=== PATIENT | male | born 1960 | race Caucasian/White ===

== ENCOUNTER → 2017-06-01 | Outpatient (CLI) | payer OTHER ==
[~2017-06-01] MED LIST: ADVIN25/60 INH; ALBUAER2 INH; TIOTCAP INH
== END | disposition home or self-care (01) ==
LOC: C.RC 12:40
PROVIDERS: ATTEND Internal Medicine
DX: J44.9 Chronic obstructive pulmonary disease, unspecified (principal)

== ENCOUNTER → 2017-06-15 | Outpatient (CLI) | payer OTHER ==
[~2017-06-15] MED LIST changes: +ATROPINE SULFATE 0.1 MG/ML 5ML SYR ONE; +DOBUTamine HCL 12.5 MG/ML 20 ML VIAL ONE; +METOPROLOL TARTRATE 1 MG/ML VIAL ONE
--- NOTE | 2017-06-15 21:55 | DOBUTAMINE ECHO ---
*NOTICE TO RECEIVING LIBERTARIAN AGENCY This information is strictly Confidential and protected under [place] law. [place] law prohibits you from making any further disclosure of this information unless further disclosure is expressly permitted by the written consent of the person to whom it pertains or is authorized by law. A general authorization for the release of medical or other information is not sufficient for this purpose. Hospital accepts no responsibility if the information is made available to any other person, INCLUDING THE PATIENT. Interpretation Summary * Name: NEREYDA LOVE Study Date: 06/15/2017 10:36 AM BP: 118/73 mmHg * Patient Location: [facility] HR: 81 * : 1960 (M/d/yyyy) Gender: Male Height: 65 in * Age: 57 yrs Ethnicity: [place] Weight: 117 lb * Ordering Physician: Ethan Hollingsworth * Referring Physician: Ethan Hollingsworth * Performed By: Yuridia Jackson RDCS * * Reason For Study: CHEST PAIN * BSA: 1.6 m2 * -- Conclusions -- * Dobutamine Stress Echo: * 1. Negative Dobutamine stress echo for ischemia at 87 % MPHR. * 2. Negative Dobutamine ECG for ischemia at 87 % MPHR. * 3. Appropriate blood pressure response. * 4. No arrhythmia. * 5. No chest pain reported. * Echo: * 1. Normal left ventricular size and systolic function. EF 65-70%. No regional wall motion abnormalities. No left ventricular hypertrophy. Type 2 diastolic dysfunction. * 2. Sclerotic aortic valve without significant stenosis. * 3. Mildly elevated right ventricular systolic pressure; 41mmHg. Procedure Details * DOBUTAMINE ECHO, CPT#[id number] Left Ventricle * The left ventricle is normal in size. * There is normal left ventricular wall thickness. * Ejection Fraction = 65-70%. * Left ventricular systolic function is normal. * Resting wall motion: Normal. Stress wall motion: Appropriate increase in Left ventricular systolic function and decrease in cavity size. No stress induced segmental wall motion abnormalities. * The left ventricular ejection fraction increases normally with stress. The left ventricular end-systolic cavity size reduces post-stress (normal response). The left ventricular wall motion with stress is normal. Right Ventricle * The right ventricle is normal in size and function. * The right ventricular systolic function is normal as assessed by tricuspid annular plane systolic excursion (TAPSE) (normal >1.5 cm). Atria * The left atrial size is normal. * Right atrial size is normal. * There is no evidence of atrial septal defect, but resolution does not allow assessment for a patent foramen ovale. Mitral Valve * The mitral valve is grossly normal. * There is no mitral valve stenosis. * There is trace mitral regurgitation. Tricuspid Valve * The tricuspid valve is not well visualized, but is grossly normal. * There is no tricuspid stenosis. * There is trace tricuspid regurgitation. Aortic Valve * The aortic valve is trileaflet. * Sclerotic aortic valve without significant stenosis. * Trace aortic regurgitation. Pulmonic Valve * The pulmonary valve is inadequately visualized, but the Doppler data is adequate for interpretation. * There is no significant pulmonary regurgitation. Great Vessels * The aortic root is normal size. * Normal IVC size and inspiratory collapse. Pericardium * Trace pericardial effusion. Stress Parameters * Sinus rhythm at 83 bpm. * No significant ST changes. No arrhythmia. Rare ectopy. * The stress portion of this study was personally supervised by the undersigned interpreting physician. * Rest heart rate was '81' BPM. * Rest blood pressure was '118/73' * Maximum heart rate achieved was 142 bpm. * Maximum heart rate was 87 % of maximum age-predicted heart rate. * Maximum blood pressure was '150/45' * Maximum Dobutamine infusion rate was '40' mcg/kg/min. * A total of .5 mg of intravenous Atropine was used to supplement Dobutamine for heart rate response. * Dobutamine infusion was terminated due to achieving target heart rate * A total of 7.5 mg of IV Metoprolol was administered to reverse Dobutamine-induced tachycardia. MMode 2D Measurements and Calculations IVSd 1.1 cm IVSs 1.7 cm LVIDd 4.5 cm LVIDs 2.9 cm LVPWd 1.1 cm LVPWs 1.5 cm IVS/LVPW 0.98 FS 36.9 % EDV(Teich) 93.6 ml ESV(Teich) 31.0 ml EF(Teich) 66.9 % EDV(cubed) 92.5 ml ESV(cubed) 23.3 ml EF(cubed) 74.8 % % IVS thick 50.4 % % LVPW thick 33.2 % LV mass(C)d 178.6 grams LV mass(C)dI 113.4 grams/m\S\2 LV mass(C)s 160.9 grams LV mass(C)sI 102.2 grams/m\S\2 SV(Teich) 62.6 ml SI(Teich) 39.7 ml/m\S\2 SV(cubed) 69.3 ml SI(cubed) 44.0 ml/m\S\2 Ao root diam 3.7 cm Ao root area 10.7 cm\S\2 LVAd ap4 28.7 cm\S\2 LVLd ap4 8.2 cm EDV(MOD-sp4) 87.8 ml EDV(sp4-el) 84.9 ml LVAs ap4 15.0 cm\S\2 LVLs ap4 6.6 cm ESV(MOD-sp4) 31.7 ml ESV(sp4-el) 29.0 ml EF(MOD-sp4) 63.9 % EF(sp4-el) 65.8 % LVAd ap2 28.5 cm\S\2 LVLd ap2 7.9 cm EDV(MOD-sp2) 86.4 ml EDV(sp2-el) 87.8 ml LVAs ap2 14.7 cm\S\2 LVLs ap2 6.4 cm ESV(MOD-sp2) 30.3 ml ESV(sp2-el) 28.5 ml EF(MOD-sp2) 65.0 % EF(sp2-el) 67.6 % LVLd %diff -4.93 % EDV(MOD-bp) 88.3 ml LVLs %diff -2.77 % ESV(MOD-bp) 31.3 ml EF(MOD-bp) 64.5 % SV(MOD-sp4) 56.1 ml SI(MOD-sp4) 35.6 ml/m\S\2 SV(MOD-sp2) 56.2 ml SI(MOD-sp2) 35.7 ml/m\S\2 SV(MOD-bp) 57.0 ml SI(MOD-bp) 36.2 ml/m\S\2 SV(sp4-el) 55.9 ml SI(sp4-el) 35.5 ml/m\S\2 SV(sp2-el) 59.3 ml SI(sp2-el) 37.6 ml/m\S\2 Doppler Measurements and Calculations MV E max devyn 88.9 cm/sec MV A max devyn 71.6 cm/sec MV E/A 1.2 MV dec time 0.16 sec Ao V2 max 189.4 cm/sec Ao max PG 14.3 mmHg Ao max PG (full) 9.3 mmHg Ao V2 mean 122.1 cm/sec Ao mean PG 7.0 mmHg Ao mean PG (full) 4.7 mmHg Ao V2 VTI 33.5 cm LV V1 max PG 5.1 mmHg LV V1 mean PG 2.2 mmHg LV V1 max 112.8 cm/sec LV V1 mean 67.8 cm/sec LV V1 VTI 19.1 cm SV(Ao) 358.9 ml SI(Ao) 227.9 ml/m\S\2 TR max devyn 307.3 cm/sec RVSP(TR) 40.8 mmHg RAP systole 3.0 mmHg
== END | disposition home or self-care (01) ==
LOC: C.CPL 10:28
PROVIDERS: ATTEND Internal Medicine
DX: R07.9 Chest pain, unspecified (principal); J44.9 Chronic obstructive pulmonary disease, unspecified; R06.09 Other forms of dyspnea

== ENCOUNTER 2018-07-24 08:28 | Inpatient (IN) ==
--- OUTSIDE RECORDS SUMMARY | 2018-07-24 08:31 | External Medical Summary | Continuity of Care Document ---
:1960 Author Name Delvin De La Cruz, Provider Address Unavailable Unavailable , Care Team Providers Name Role Phone Cedrick Mejia [email or web address] MICHELLE BUCK Unavailable Unavailable Unavailable Unavailable Unavailable Problems Emphysema, unspecified (492.8) (J43.9) Constipation (564.00) (K59.00) Weight loss (783.21) (R63.4) COPD exacerbation (491.21) (J44.1) Pulmonary nodule (793.11) (R91.1) Respiratory failure, plfaf-hi-urshxop (518.84) (J96.20) Allergies and Adverse Reactions No Known Drug Allergies (Allergy) Medications Flomax 0.4 MG Oral Capsule; Take one capsule daily Start: 07-Feb-2018 Refills: 0 Albuterol Sulfate (2.5 MG/3ML) 0.083% In halation Nebulization Solution; USE 1 UNIT DOSE IN NEBULIZER EVERY 4 TO 6 HOURS NEEDED. S tart: 07-Feb-2018 Quantity: 1 30 x 3 ML Plas Cont Refills: 5 Fluticasone-Salmeterol 232-14 MCG/ACT In halation Aerosol Powder Breath Activated Start: 07-Feb-2018 Refills: 0 Ipratropium [place] 0.02 % Inhalation So lution; USE 1 UNIT DOSE IN NEBULIZER EVERY 4 HOURS. MIX WITH 1 UNIT DOSE OF ALBUTEROL FOR EACH TREATMENT. Start: 07-Feb-2018 Quantity: 1 60 x 2.5 ML Plas Con t Refills: 5 Mucinex TB12 Refills: 0 MiraLax POWD Refills: 0 Ventolin HFA 108 (90 Base) MCG/ACT Inhalation Aerosol Soluti on Refills: 0 Spiriva HandiHaler CAPS Refills: 0 Amoxicillin-Pot Clavulanate 875-125 MG O ral Tablet; TAKE 1 TABLET EVERY 12 HOURS UNTIL GONE. Jono Mejia Start: 23-May-2018 Quantity: 20 Refills: 0 predniSONE 10 MG Oral Tablet; 24 day tap er, take as directed down to 10mg daily & will hold on (1) tablet daily. Jono Mejia Start: 23-May-2018 Quantity: 100 Refills: 1 Procedures Procedures not documented Immunizations Immunizations not documented Social History - Smoking Status Former smoker Plan of Treatment Planned Encounters Appointment; Cedrick Mejia M.D. Start: 10-Oct-2018 9:45 R equest Planned Observations Planned Goals not documented Results No Known Results Results not documented Encounters Appointment; Cedrick Mejia M.D. 23-May-2018 15:15 Encounter Diagnosis: Problem not documented Appointment; Cedrick Mejia M.D. 10-Feb-2018 13:00 Encounter Diagnosis: Problem not documented Appointment; Cedrick Mejia M.D. 10-Oct-2018 9:45 Encounter Diagnosis: Problem not documented
[2018-07-24] MEDS ORDERED: methylPREDNISolone 125 MG/2 ML VIAL IV STA (09:03)
[2018-07-24] MEDS ORDERED: ALBUT/IPRATROP 3MG/0.5MG NEB 3 ML VIAL INH STA (09:03)
--- NOTE | 2018-07-24 09:10 | Emergency Department Note ---
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 He states that his shortness of breath is significantly limiting his daily activities, even walking a few steps to the bathroom, which is much worse from his baseline. He does report that he has been increasing his oxygen as needed at home, but is currently on his 2 L. He states he feels slightly short of breath just sitting at rest, but is much worse with exertion. He complains of some diffuse chest tightness which he st ates has been constant for the past 4 days and he rates as 3/10. He also has a cough which he reports has been nonproductive, he denies any purulent mucus or hemoptysis. He denies any fevers or chills. He denies any headaches, dizziness or syncope, back pain, abdominal pain, nausea or vomiting, urinary complaints, or unusual rash. REVIEW OF SYSTEMS: A complete 10 point review of systems was reviewed with the patient with pertinent positives and negatives as per history of present illness. All else were negative. PAST MEDICAL HISTORY: Emphysema, steroid dependent COPD SOCIAL HISTORY: Lives at home with family, he is a current everyday smoker ALLERGIES: No known allergies PHYSICAL EXAM: CONSTITUTIONAL: Pleasant and cooperative. Nontoxic-appearing and in no acute distress. Mildly dehydrated, but otherwise well appearing and well nourished. HEENT: Normocephalic, atraumatic. PERRL, EOMI. TMs normal. Pharynx normal. Tacky mucous membrane's. NECK: Supple, full active range of motion without discomfort. No cervical adenopathy. RESPIRATORY: Diminished throughout with diffuse expiratory wheezing, no crackles, rhonchi or stridor. Mildly tachypneic. Mildly labored breathing with suprasternal accessory muscle use. Equal expansion bilaterally. CARDIOVASCULAR: Tachycardic. Regular rhythm with no murmurs, rubs or gallops. Normal peripheral perfusion, 2+ distal pulses in all 4 extremities. No edema. GASTROINTESTINAL: Soft, nontender, nondistended. No palpable masses or HSM. B owel sounds present in all quadrants. MUSCULOSKELETAL: Full range of motion of all joints without discomfort. INTEGUMENTARY: No rash or other significant dermatologic conditions noted. NEUROLOGIC: Alert and oriented X 4 with normal affect. Normal speech. Normal gait observed. ED COURSE AND MEDICAL DECISION MAKING: CC: Patient presenting with complaint of shortness of breath DIFFERENTIAL DIAGNOSIS: Includes, but not limited to COPD exacerbation, bronchitis, pneumonia, pneumothorax, PE, ACS, dehydration, among others. INTERPRETATION OF LABS: Mild leukocytosis, no anemia, no significant electrolyte abnormalities, normal renal function, normal liver enzymes. UA negative. IMAGING: XR chest 1V portable HISTORY: Dyspnea COMPARISON: Chest 01/18/2018. FINDINGS: The lungs remain hyperexpanded with apical predominant emphysematous changes. No focal lung consolidations. No evidence for pulmonary edema. No pleural effusions. No pneumothorax. The heart is normal in size. IMPRESSION: No significant change compared to the prior study. No acute process. Emphysema. EKG: Shows normal sinus rhythm with a rate of 91 bpm, normal intervals, normal axis, no ectopy, peak T waves which appears unchanged from previous EKG of 01/08/2018 by my interpretation. MEDICATION RECONCILIATION: I attest that I have personally reviewed the patient's current medication list. INITIAL VITAL SIGNS REVIEW: I reviewed the patient's initial vital signs and interpret them as follows: T: Afebrile; BP: Hypertensive; HR: Tachycardic; RR: Within normal limits; Pulse Ox: Normal limits on 2 L nasal cannula. Blood pressure screening: The patient was found to have an elevated blood pressure and was referred to the inpatient team for further management. MDM SUMMARY: Patient was evaluated at bedside, history and physical exam performed. Patient is alert and oriented, no acute distress, resting calmly in stretcher. He does appear to have mildly labored breathing and is slightly tachypneic at times with slight accessory muscle use. Lungs are significantly diminished with diffuse expiratory wheezes. The patient is on his 2 L of oxygen nasal cannula, which is his baseline. Orders were placed at bedside for labs, UA, IV fluid bolus for hydration, continuous 1 hour DuoNeb, IV Solu-Medrol 125 mg, EKG, chest x-ray to evaluate for cardio pulmonary disease. Patient discussed with Dr. Meek, who agrees with my assessment, plan, and disposition. Labs and imaging reviewed as above, notable for some mild leukocytosis which I suspect may be secondary to steroid use, no significant lab abnormalities. Negative troponin. EKG appears unchanged from previous. Chest x-ray shows stable emphysematous changes with no evidence of pneumonia or other acute process. Patient was reassessed after nebulizer treatment, he is moving better air and has more diffuse wheezing, but remains mildly labored and states he still feels short of breath. He is on his 2 L of home O2. The patient is refusing ambulatory pulse ox trial, stating that he feels too short of breath. Patient states that he does not feel safe to go home and is requesting to be admitted. I discussed with the counseling case manager, patient does not appear to meet admission criteria at this time. I discussed with the patient, will speak with the [facility] regarding possible observation versus admission. I spoke on the phone with Dr. Beard, [facility], who agrees to evaluate the patient for admission/observation. Patient reassessed multiple times throughout ED stay, he has remained hemodynamically stable, and his breathing does appear less labored after the above treatments. The patient was updated on all results and plan for admission, he verbalized understanding and was agreeable to this plan. The patient was stable at time of admission. The chart was completed utilizing [employer] Speech voice recognition software. Grammatical errors, random word insertions, pronoun errors, and incomplete sentences are an occasional consequence of this system due to software limitations, ambient noise, and hardware issues. Any formal questions or concerns about the content, text, or information contained within the body of this dictation should be directly addressed to the nurse practitioner for clarification. Impression & Plan COPD exacerbation, Steroid-dependent COPD Past Med/Surg History Medical History DVT prophylaxis Steroid-dependent COPD (Chronic) Chronic respiratory failure (Chronic) Acute bronchitis (Acute) COPD exacerbation (Acute) Tobacco abuse Pulmonary nodule Emphysema (Chronic) Bronchitis (Chronic) COPD exacerbation (Acute) Surgical History No pertinent past surgical history Social History Preferred Language: Vietnamese Communication Ability: Effective Corporate Driver Required: No Beliefs That Will Affect Care: None Current Living Situation: Parent Current Living Situation Comment: with mom Other Information That Helps Us Care for You: No Feels Safe at Home: Yes Safety Concerns: Feels Safe At This Time Smoking Status: Current every day smoker Tobacco Type: cigarettes Cigarettes Per Day: 20 Do You Dip or Chew Tobacco: No Second Hand Exposure: No Tobacco Cessation Education Requested by Patient: No Hx Alcohol Use: Yes Alcohol type: beer Hx Substance Use: No Results & Data Vital Signs Vital Signs - 24 hr 07/24/18 08:30 07/24/18 08:49 07/24/18 08:53 Temperature 36.8 C Temperature Source Oral Sepsis Recent Fever Within 48 Hours No Sepsis New/Unexplained Change in Mental Status No Sepsis Action Taken by Nursing No Action Required Pulse Rate 117 H 113 H 96 H Pulse Rate [Apical] Pulse Rate from SpO2 Sensor 98 H 95 H Pulse Rhythm Regular Pulse Strength Normal Respiratory Rate 20 23 20 Respiratory Effort / Characteristics Non-Labored Spontaneous Respiratory Depth Normal Respiratory Pattern Regular Blood Pressure 170/91 H 150/98 H Blood Pressure [Left Arm] Blood Pressure Mean 117 115 Blood Pressure Mean [Left Arm] Blood Pressure Position Sitting Blood Pressure Position [Left Arm] Pulse Oximetry 93 96 95 Oxygen Delivery Method Nasal Cannula Oxygen Flow Rate 2 07/24/18 08:59 07/24/18 09:00 07/24/18 09:15 Temperature 36.8 C Temperature Source Oral Sepsis Recent Fever Within 48 Hours Sepsis New/Unexplained Change in Mental Status Sepsis Action Taken by Nursing Pulse Rate 91 H 91 H Pulse Rate [Apical] 91 H Pulse Rate from SpO2 Sensor 101 H 92 H Pulse Rhythm Regular Pulse Strength Respiratory Rate 20 16 21 Respiratory Effort / Characteristics Non-Labored Spontaneous Respiratory Depth Normal Respiratory Pattern Regular Blood Pressure 180/101 H Blood Pressure [Left Arm] 180/114 H Blood Pressure Mean 127 Blood Pressure Mean [Left Arm] 136 Blood Pressure Position Blood Pressure Position [Left Arm] Sitting Pulse Oximetry 93 96 96 Oxygen Delivery Method Nasal Cannula Oxygen Flow Rate 2 07/24/18 09:18 07/24/18 09:24 07/24/18 09:30 Temperature Temperature Source Sepsis Recent Fever Within 48 Hours Sepsis New/Unexplained Change in Mental Status Sepsis Action Taken by Nursing Pulse Rate 91 H 88 Pulse Rate [Apical] 93 H Pulse Rate from SpO2 Sensor 90 88 Pulse Rhythm Pulse Strength Respiratory Rate 24 18 18 Respiratory Effort / Characteristics Non-Labored Spontaneous Respiratory Depth Respiratory Pattern Blood Pressure 181/98 H Blood Pressure [Left Arm] Blood Pressure Mean 125 Blood Pressure Mean [Left Arm] Blood Pressure Position Blood Pressure Position [Left Arm] Pulse Oximetry 97 96 97 Oxygen Delivery Method Nasal Cannula Oxygen Flow Rate 2 05/26/19 09:31 07/24/18 09:45 07/24/18 10:00 Temperature Temperature Source Sepsis Recent Fever Within 48 Hours Sepsis New/Unexplained Change in Mental Status Sepsis Action Taken by Nursing Pulse Rate 88 89 89 Pulse Rate [Apical] 88 92 H Pulse Rate from SpO2 Sensor 86 89 89 Pulse Rhythm Pulse Strength Respiratory Rate 17 24 23 Respiratory Effort / Characteristics Non-Labored Spontaneous Non-Labored Spontaneous Respiratory Depth Normal Normal Respiratory Pattern Regular Regular Blood Pressure 164/81 H Blood Pressure [Left Arm] 164/81 H 155/79 H Blood Pressure Mean 108 Blood Pressure Mean [Left Arm] 108 104 Blood Pressure Position Blood Pressure Position [Left Arm] Sitting Sitting Pulse Oximetry 98 98 96 Oxygen Delivery Method Nasal Cannula Nasal Cannula Oxygen Flow Rate 2 2 07/24/18 10:01 07/24/18 10:15 07/24/18 10:30 Temperature Temperature Source Sepsis Recent Fever Within 48 Hours Sepsis New/Unexplained Change in Mental Status Sepsis Action Taken by Nursing Pulse Rate 92 H 90 86 Pulse Rate [Apical] Pulse Rate from SpO2 Sensor 90 89 86 Pulse Rhythm Pulse Strength Respiratory Rate 20 23 21 Respiratory Effort / Characteristics Respiratory Depth Respiratory Pattern Blood Pressure 155/79 H Blood Pressure [Left Arm] Blood Pressure Mean 104 Blood Pressure Mean [Left Arm] Blood Pressure Position Blood Pressure Position [Left Arm] Pulse Oximetry 96 95 97 Oxygen Delivery Method Oxygen Flow Rate 07/24/18 10:31 07/24/18 10:45 07/24/18 11:00 Temperature Temperature Source Sepsis Recent Fever Within 48 Hours Sepsis New/Unexplained Change in Mental Status Sepsis Action Taken by Nursing Pulse Rate 92 H 84 84 Pulse Rate [Apical] 92 H Pulse Rate from SpO2 Sensor 92 H 84 84 Pulse Rhythm Pulse Strength Respiratory Rate 23 23 25 H Respiratory Effort / Characteristics Non-Labored Spontaneous Respiratory Depth Normal Respiratory Pattern Regular Blood Pressure 137/83 Blood Pressure [Left Arm] 137/83 Blood Pressure Mean 101 Blood Pressure Mean [Left Arm] 101 Blood Pressure Position Blood Pressure Position [Left Arm] Sitting Pulse Oximetry 97 94 96 Oxygen Delivery Method Nasal Cannula Oxygen Flow Rate 2 07/24/18 11:01 07/24/18 11:15 07/24/18 11:30 Temperature Temperature Source Sepsis Recent Fever Within 48 Hours Sepsis New/Unexplained Change in Mental Status Sepsis Action Taken by Nursing Pulse Rate 84 92 H 77 Pulse Rate [Apical] 84 Pulse Rate from SpO2 Sensor 85 89 78 Pulse Rhythm Pulse Strength Respiratory Rate 20 28 H 29 H Respiratory Effort / Characteristics Non-Labored Spontaneous Respiratory Depth Normal Respiratory Pattern Regular Blood Pressure 140/73 Blood Pressure [Left Arm] 140/73 Blood Pressure Mean 95 Blood Pressure Mean [Left Arm] 95 Blood Pressure Position Blood Pressure Position [Left Arm] Sitting Pulse Oximetry 96 96 96 Oxygen Delivery Method Nasal Cannula Oxygen Flow Rate 2 07/24/18 11:31 07/24/18 11:45 07/24/18 11:47 Temperature Temperature Source Sepsis Recent Fever Within 48 Hours Sepsis New/Unexplained Change in Mental Status Sepsis Action Taken by Nursing Pulse Rate 93 H 77 Pulse Rate [Apical] 93 H Pulse Rate from SpO2 Sensor 90 79 Pulse Rhythm Pulse Strength Respiratory Rate 22 20 22 Respiratory Effort / Characteristics Non-Labored Spontaneous Respiratory Depth Normal Respiratory Pattern Regular Blood Pressure 135/71 Blood Pressure [Left Arm] 135/71 Blood Pressure Mean 92 Blood Pressure Mean [Left Arm] 92 Blood Pressure Position Blood Pressure Position [Left Arm] Sitting Pulse Oximetry 96 97 96 Oxygen Delivery Method Nasal Cannula Oxygen Flow Rate 2 07/24/18 12:00 07/24/18 12:01 07/24/18 12:15 Temperature Temperature Source Sepsis Recent Fever Within 48 Hours Sepsis New/Unexplained Change in Mental Status Sepsis Action Taken by Nursing Pulse Rate 81 83 86 Pulse Rate [Apical] 83 Pulse Rate from SpO2 Sensor 81 84 86 Pulse Rhythm Pulse Strength Respiratory Rate 31 H 21 26 H Respiratory Effort / Characteristics Non-Labored Spontaneous Respiratory Depth Normal Respiratory Pattern Regular Blood Pressure 137/76 Blood Pressure [Left Arm] 137/76 Blood Pressure Mean 96 Blood Pressure Mean [Left Arm] 96 Blood Pressure Position Blood Pressure Position [Left Arm] Sitting Pulse Oximetry 95 96 95 Oxygen Delivery Method Nasal Cannula Oxygen Flow Rate 2 07/24/18 12:30 07/24/18 12:31 07/24/18 12:45 Temperature Temperature Source Sepsis Recent Fever Within 48 Hours Sepsis New/Unexplained Change in Mental Status Sepsis Action Taken by Nursing Pulse Rate 82 84 87 Pulse Rate [Apical] Pulse Rate from SpO2 Sensor 82 83 87 Pulse Rhythm Pulse Strength Respiratory Rate 30 H 26 H 34 H Respiratory Effort / Characteristics Respiratory Depth Respiratory Pattern Blood Pressure 145/77 H Blood Pressure [Left Arm] Blood Pressure Mean 99 Blood Pressure Mean [Left Arm] Blood Pressure Position Blood Pressure Position [Left Arm] Pulse Oximetry 97 96 95 Oxygen Delivery Method Oxygen Flow Rate 07/24/18 12:54 07/24/18 12:59 Temperature Temperature Source Sepsis Recent Fever Within 48 Hours Sepsis New/Unexplained Change in Mental Status Sepsis Action Taken by Nursing Pulse Rate Pulse Rate [Apical] 84 Pulse Rate from SpO2 Sensor Pulse Rhythm Pulse Strength Respiratory Rate 26 H Respiratory Effort / Characteristics Non-Labored Spontaneous Spontaneous Accessory Muscle Use Labored Short of Breath SOB on Exertion Respiratory Depth Normal Normal Respiratory Pattern Regular Tachypnea Blood Pressure Blood Pressure [Left Arm] 145/77 H Blood Pressure Mean Blood Pressure Mean [Left Arm] 99 Blood Pressure Position Blood Pressure Position [Left Arm] Sitting Pulse Oximetry 96 Oxygen Delivery Method Nasal Cannula Nasal Cannula Oxygen Flow Rate 2 2 Laboratory Data Result diagrams: 07/24/18 08:59 07/24/18 08:59 Lab Results 07/24/18 07/24/18 07/24/18 Range/Units 08:59 08:59 08:59 WBC 12.92 H (4.8-10.8) K/uL RBC 4.36 L (4.7-6.1) M/uL Hgb 14.1 (14.0-18.0) g/dL Hct 41.5 L (42-52) % MCV 95.2 (80-100) fL MCH 32.3 (25-34) pg MCHC 34.0 (32-36) g/dL RDW Std Deviation 46.2 (36.4-46.3) fL RDW Coeff of Renato 13.3 (11.5-14.5) % Plt Count 407 H (130-400) K/uL MPV 10.2 (7.4-10.4) fL Immature Gran % (Auto) 0.7 % Neut % (Auto) 86.8 % Lymph % (Auto) 9.5 % Todd % (Auto) 3.0 % Eos % (Auto) 0.0 % Baso % (Auto) 0.0 % Immature Gran # (Auto) 0.09 H (0.00-0.02) K/uL Neut # (Auto) 11.21 H (1.4-6.5) K/uL Lymph # (Auto) 1.23 (1.2-3.4) K/uL Todd # (Auto) 0.39 (0.11-0.59) K/uL Eos # (Auto) 0.00 (0-0.5) K/uL Baso # (Auto) 0.00 (0-0.2) K/uL PT 10.3 (9.0-12.0) Seconds INR 1.0 (0.9-1.1) APTT 22.2 (21.0-31.0) Seconds PTT Ratio 0.8 ABG pH (7.35-7.45) ABG pCO2 (35-46) mmHg ABG pO2 (80-95) mm/Hg ABG HCO3 (19-24) mmol/L ABG O2 Saturation (90-95) % ABG Base Excess (-9-1.8) mEq/L Jose Elias Test (Pos) Barometric Pressure mm/Hg Oxygen Given Sodium 139 (136-145) mmol/L Potassium 4.1 (3.5-5.1) mmol/L Chloride 101 (98-107) mmol/L Carbon Dioxide 32 (21-32) mmol/L Anion Gap 6.0 (3-11) BUN 18 (7-18) mg/dl Creatinine 0.87 (0.6-1.4) mg/dl Est Cr Clr Drug Dosing Not Reportable Est GFR ( Amer) 110.3 Est GFR (Non-Af Amer) 95.1 BUN/Creatinine Ratio 20.9 H (10-20) Glucose 128 H (70-99) mg/dl POC Lactic Acid Von (0.90-1.70) mmol/L Calcium 9.8 (8.5-10.1) mg/dl Total Bilirubin 0.4 (0.2-1) mg/dl AST 13 L (15-37) U/L ALT 16 (12-78) U/L Alkaline Phosphatase 90 (45-117) U/L Troponin I < 0.015 (0-0.045) ng/ml Total Protein 7.1 (6.4-8.2) gm/dl Albumin 3.6 (3.4-5.0) gm/dl Globulin 3.5 (2.5-4.0) gm/dl Albumin/Globulin Ratio 1.0 (0.9-2) Urine Color Urine Appearance (Clear) Urine pH (4.5-7.5) Ur Specific [place] (1.000-1.030) Urine Protein (Negative) Urine Glucose (UA) (Negative) Urine Ketones (Negative) Urine Blood (Negative) Urine Nitrite (Negative) Urine Bilirubin (Negative) Urine Urobilinogen (Negative) Ur Leukocyte Esterase (Negative) 07/24/18 07/24/18 07/24/18 Range/Units 09:05 12:15 12:51 WBC (4.8-10.8) K/uL RBC (4.7-6.1) M/uL Hgb (14.0-18.0) g/dL Hct (42-52) % MCV (80-100) fL MCH (25-34) pg MCHC (32-36) g/dL RDW Std Deviation (36.4-46.3) fL RDW Coeff of Renato (11.5-14.5) % Plt Count (130-400) K/uL MPV (7.4-10.4) fL Immature Gran % (Auto) % Neut % (Auto) % Lymph % (Auto) % Todd % (Auto) % Eos % (Auto) % Baso % (Auto) % Immature Gran # (Auto) (0.00-0.02) K/uL Neut # (Auto) (1.4-6.5) K/uL Lymph # (Auto) (1.2-3.4) K/uL Todd # (Auto) (0.11-0.59) K/uL Eos # (Auto) (0-0.5) K/uL Baso # (Auto) (0-0.2) K/uL PT (9.0-12.0) Seconds INR (0.9-1.1) APTT (21.0-31.0) Seconds PTT Ratio ABG pH 7.34 L (7.35-7.45) ABG pCO2 58 H (35-46) mmHg ABG pO2 96 H (80-95) mm/Hg ABG HCO3 31 H (19-24) mmol/L ABG O2 Saturation 97.0 H (90-95) % ABG Base Excess 3.3 H (-9-1.8) mEq/L Jose Elias Test Pos (Pos) Barometric Pressure 731.6 mm/Hg Oxygen Given 2L Sodium (136-145) mmol/L Potassium (3.5-5.1) mmol/L Chloride (98-107) mmol/L Carbon Dioxide (21-32) mmol/L Anion Gap (3-11) BUN (7-18) mg/dl Creatinine (0.6-1.4) mg/dl Est Cr Clr Drug Dosing Est GFR ( Amer) Est GFR (Non-Af Amer) BUN/Creatinine Ratio (10-20) Glucose (70-99) mg/dl POC Lactic Acid Von 0.97 (0.90-1.70) mmol/L Calcium (8.5-10.1) mg/dl Total Bilirubin (0.2-1) mg/dl AST (15-37) U/L ALT (12-78) U/L Alkaline Phosphatase (45-117) U/L Troponin I (0-0.045) ng/ml Total Protein (6.4-8.2) gm/dl Albumin (3.4-5.0) gm/dl Globulin (2.5-4.0) gm/dl Albumin/Globulin Ratio (0.9-2) Urine Color Yellow Urine Appearance Clear (Clear) Urine pH 5.5 (4.5-7.5) Ur Specific [place] 1.016 (1.000-1.030) Urine Protein Negative (Negative) Urine Glucose (UA) Negative (Negative) Urine Ketones Negative (Negative) Urine Blood Negative (Negative) Urine Nitrite Negative (Negative) Urine Bilirubin Negative (Negative) Urine Urobilinogen Negative (Negative) Ur Leukocyte Esterase Negative (Negative) Administered Medications Acetaminophen (Tylenol) 650 mg PO Q4H PRN PRN Reason: Pain or Fever Stop: 08/23/18 13:43 Last Admin: 07/24/18 14:09 Dose: 650 mg Documented by: [id number] Enoxaparin Sodium (Lovenox) 40 mg SQ Q24H [facility] Stop: 08/23/18 15:59 Last Admin: 07/24/18 15:24 Dose: Not Given Documented by: [id number] Discontinued Medications Albuterol (Duoneb) 12 ml INH ONE STA Stop: 07/24/18 09:04 Last Admin: 07/24/18 09:24 Dose: 12 ml Documented by: [id number] Sodium Chloride (Nss 1000ml) 1,000 mls @ 999 mls/hr IV .Q1H1M HOWARD Stop: 07/24/18 10:15 Last Infusion: 07/24/18 10:53 Dose: 0 mls/hr Documented by: [id number] Admin: 07/24/18 09:52 Dose: 999 mls/hr Documented by: [id number] Methylprednisolone (Solumedrol) 125 mg IV NOW STA Stop: 07/24/18 09:04 Last Admin: 07/24/18 09:52 Dose: 125 mg Documented by: [id number] Discharge Plan Visit Data *Final* Discharge Date/Time: 07/24/18 13:35 Chief Complaint: Respiratory Problems Stated Complaint: DIFFICULTY BREATHING, NUMBNESS TO SKIN- HX COPD ED Provider: Daniel Meek ED Midlevel Provider: Krystin Hennessy Discharge Problem: COPD exacerbation, Steroid-dependent COPD Patient Disposition: Admitted As Inpatient Discharge Instructions Interventions: ED Discharge Assessment Last Done: 07/24/18 13:35
[2018-07-24] MEDS ORDERED: SODIUM CHLORIDE 0.9% 1000ML 1,000 ML IV SCH (09:15)
[2018-07-24 09:16] LABS: Hematocrit (blood only) 41.5 % (42-52); Hemoglobin 14.1 g/dL (14.0-18.0); Immature Granulocytes # (auto) 0.09 K/uL (0.00-0.02); Immature Granulocytes % (auto) 0.7 %; Lymphocytes # (auto) 1.23 K/uL (1.2-3.4); Lymphocytes % (auto) 9.5 %; Mean Corpuscular Volume 95.2 fL (80-100); Mean Platelet Volume 10.2 fL (7.4-10.4); Monocytes # (auto) 0.39 K/uL (0.11-0.59); Neutrophils # (auto) 11.21 K/uL (1.4-6.5); Neutrophils % (auto) 86.8 %; Platelet Count 407 K/uL (130-400); RDW Coefficient of Variation 13.3 % (11.5-14.5); RDW Standard Deviation 46.2 fL (36.4-46.3); Red Blood Count 4.36 M/uL (4.7-6.1); White Blood Count 12.92 K/uL (4.8-10.8)
[2018-07-24 09:25] LABS: Partial Thromboplastin Ratio 0.8; Partial Thromboplastin Time 22.2 Seconds (21.0-31.0); Prothrombin Time 10.3 Seconds (9.0-12.0)
[2018-07-24 09:33] LABS: Alanine Aminotransferase 16 U/L (12-78); Albumin Level 3.6 gm/dl (3.4-5.0); Aspartate Aminotransferase 13 U/L (15-37); BUN Creatinine Ratio 20.9 (10-20); Blood Urea Nitrogen 18 mg/dl (7-18); Calcium 9.8 mg/dl (8.5-10.1); Carbon Dioxide 32 mmol/L (21-32); Chloride 101 mmol/L (98-107); Est GFR (African American) 110.3; Est GFR (Non-African American) 95.1; Glucose 128 mg/dl (70-99); Potassium 4.1 mmol/L (3.5-5.1); Sodium 139 mmol/L (136-145)
[2018-07-24 09:37] LABS: Alkaline Phosphatase 90 U/L (45-117); Bilirubin,Total 0.4 mg/dl (0.2-1); Globulin 3.5 gm/dl (2.5-4.0); Total Protein 7.1 gm/dl (6.4-8.2); Troponin I < 0.015 ng/ml (0-0.045)
--- NOTE | 2018-07-24 09:40 | XRay Report ---
XR chest 1V portable HISTORY: Dyspnea COMPARISON: Chest 01/18/2018. FINDINGS: The lungs remain hyperexpanded with apical predominant emphysematous changes. No focal lung consolidations. No evidence for pulmonary edema. No pleural effusions. No pneumothorax. The heart is normal in size. IMPRESSION: No significant change compared to the prior study. No acute process. Emphysema. Electronically signed by: Wayne Sal M.D. 07/24/2018 9:39 AM
[2018-07-24 12:23] LABS: Appearance Urine Clear (Clear); Bilirubin Urine Negative (Negative); Blood Urine Negative (Negative); Color Urine Yellow; Glucose Urine UA Negative (Negative); Ketones Urine Negative (Negative); Leukocyte Esterase Urine Negative (Negative); Nitrite Urine Negative (Negative); Protein Urine Negative (Negative); Specific Gravity Urine 1.016 (1.000-1.030); Urobilinogen Urine Negative (Negative); pH Urine 5.5 (4.5-7.5)
[2018-07-24 13:02] LABS: HCO3 ABG 31 mmol/L (19-24); PCO2 ABG 58 mmHg (35-46); PO2 ABG 96 mm/Hg (80-95); pH ABG 7.34 (7.35-7.45)
--- NOTE | 2018-07-24 13:19 | History & Physical Report ---
Date of Service July 24, 2018 Assessment & Plan (1) COPD exacerbation: Treated with intravenous Solu-Medrol and nebulizers consisting of arformoterol and budesonide. Treat underlying bronchitis Present on Admission?: Yes (2) Acute bronchitis: Treat with intravenous azithromycin. Obtain sputum culture if sputum is produced. Currently he is not producing any sputum. Present on Admission?: Yes (3) Chronic respiratory failure: Currently he is still using his usual 2 L of oxygen per minute. We will continue this and treat COPD exacerbation. 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 He is now on intravenous Solu-Me drol every 8 hours (5) DVT prophylaxis: Lovenox subcu History of Present Illness Chief Complaint: Worsening dyspnea on exertion and persistent wheezing, nonproductive cough Primary Care Provider: Ethan Berman MD 58-year-old male with oxygen dependent, steroid dependent COPD. He usually takes 2 L of oxygen at home. He has been ill for the past week with a nonproductive cough and persistent wheezing. This has markedly limited his ability to ambulate. Chest x-ray reveals COPD with no infiltrates. ABGs are pending. Previous venous blood gases did reveal CO2 retention. At this time he only meets observation criteria but he is tachypneic at rest with diffuse bilateral expiratory wheezes and suspected acute bronchitis. He will be placed in observation status for further treatment with intravenous Solu-Medrol, intravenous azithromycin, nebulizers consisting of arformoterol and budesonide. Will hold off on pulmonary consultation until we see how he does over the next 24 hours. Allergies Allergy/AdvReac Type Severity Reaction Status Date / Time No Known Allergies Allergy Unverified 07/24/18 09:39 Home Medications Home Medications Medication Instructions Recorded Confirmed Type albuterol sulfate 2 puff INHALATION Q4H PRN 01/08/18 07/24/18 History fluticasone propion-salmeterol 1 puff INHALATION BID 01/08/18 07/24/18 History tiotropium bromide 1 puff INHALATION DAILY 01/08/18 07/24/18 History albuterol sulfate 2.5 mg INH Q6H #1 box 01/21/18 07/24/18 Rx polyethylene glycol 3350 [Miralax] 17 g PO QAM #1 btl 01/21/18 07/24/18 Rx tamsulosin [Flomax] 0.4 mg PO DAILY #30 cap 01/21/18 07/24/18 Rx prednisone 10 mg PO DAILY 07/24/18 07/24/18 History Past Med/Surg History Surgical History No pertinent past surgical history Social History Preferred Language: Dutch Communication Ability: Effective 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 Beliefs That Will Affect Care: None Current Living Situation: Parent Current Living Situation Comment: with mom Other Information That Helps Us Care for You: No Feels Safe at Home: Yes Safety Concerns: Feels Safe At This Time Smoking Status: Current every day smoker Tobacco Type: cigarettes Cigarettes Per Day: 20 Do You Dip or Chew Tobacco: No Second Hand Exposure: No Tobacco Cessation Education Requested by Patient: No Hx Alcohol Use: Yes Alcohol type: beer Hx Substance Use: No Review of Systems Review of Systems: All systems reviewed & are unremarkable except as noted in HPI & below Respiratory: + cough, + dyspnea on exertion and + wheezing Physical Exam Constitutional: WD/WN, vitals as above Somewhat anxious and slightly flushed. Fine baseline hand tremor probably from albuterol Eyes: PERRL, conjunctivae normal, anicteric sclerae ENMT: external ear and nose normal, oropharynx normal Neck: trachea midline, no thyromegaly Respiratory: + labored breathing, + uses accessory muscles, + hyperresonance to percussion and + cough; no retractions, no dullness to percussion and no tactile fremitus Auscultation: + rhonchi and + wheezes Respiratory rate 22 at rest. Diffuse bilateral expiratory wheezes. Faint midline rhonchi. No inspiratory rales. No dullness to percussion. Cardiovascular: RRR, no murmur, no edema Gastrointestinal (Abdomen): normal bowel sounds, soft, nontender, no hepatosplenomegaly Musculoskeletal: no cyanosis or clubbing, extremities motor strength 5/5 Skin: no rashes, warm and dry Neurologic: CN's II-XI intact bilaterally and moves all extremities; no focal motor deficits Results & Data Vital Signs (Past 12 Hours) Vital Signs Temp Pulse Pulse Resp BP BP Pulse Ox 07/24/18 12:54 84 26 H 145/77 H 96 07/24/18 12:45 87 34 H 95 07/24/18 12:31 84 26 H 145/77 H 96 07/24/18 12:30 82 30 H 97 07/24/18 12:15 86 26 H 95 07/24/18 12:01 83 83 21 137/76 137/76 96 07/24/18 12:00 81 31 H 95 07/24/18 11:47 93 H 22 135/71 96 07/24/18 11:45 77 20 97 07/24/18 11:31 93 H 22 135/71 96 07/24/18 11:30 77 29 H 96 07/24/18 11:15 92 H 28 H 96 07/24/18 11:01 84 84 20 140/73 140/73 96 07/24/18 11:00 84 25 H 96 07/24/18 10:45 84 23 94 07/24/18 10:31 92 H 92 H 23 137/83 137/83 97 07/24/18 10:30 86 21 97 07/24/18 10:15 90 23 95 07/24/18 10:01 92 H 20 155/79 H 96 07/24/18 10:00 89 92 H 23 155/79 H 96 07/24/18 09:45 89 24 98 07/24/18 09:31 88 88 17 164/81 H 164/81 H 98 07/24/18 09:30 88 18 97 07/24/18 09:24 93 H 18 96 07/24/18 09:18 91 H 24 181/98 H 97 07/24/18 09:15 91 H 21 96 07/24/18 09:00 16 180/101 H 96 07/24/18 08:59 36.8 C 91 H 91 H 20 180/114 H 93 07/24/18 08:53 96 H 20 95 07/24/18 08:49 113 H 23 150/98 H 96 07/24/18 08:30 36.8 C 117 H 20 170/91 H 93 Laboratory Results 07/24/18 08:59 07/24/18 08:59
[2018-07-24 13:36] LABS: Allen Test Pos (Pos)
[2018-07-24] MEDS ORDERED: ONDANSETRON INJ 2 MG/ML 2 ML VIAL IV PRN (13:44)
[2018-07-24] MEDS ORDERED: ACETAMINOPHEN 325 MG TAB PO PRN (13:44)
[2018-07-24] MEDS ORDERED: ALUMINUM/MAGNESIUM SUSP 30 ML UDC PO PRN (13:44)
[2018-07-24] MEDS: ENOXAPARIN INJ 40 MG/0.4 ML SYR SQ SCH (15:24)
[2018-07-24] MEDS: methylPREDNISolone 40 MG in SYRINGE 0 ML IV SCH (17:20)
[2018-07-24] MEDS: BUDESONIDE 0.5 MG/2 ML VIAL (PULMICORT) NEB SCH (19:07)
[2018-07-24] MEDS: ARFORMOTEROL TART 15MCG/2ML VIAL INH SCH (19:07)
[2018-07-25] MEDS: methylPREDNISolone 40 MG in SYRINGE 0 ML IV SCH ×2 (02:28→10:38)
[2018-07-25] MEDS: BUDESONIDE 0.5 MG/2 ML VIAL (PULMICORT) NEB SCH ×2 (06:54→19:05)
[2018-07-25] MEDS: ARFORMOTEROL TART 15MCG/2ML VIAL INH SCH ×2 (06:54→19:04)
[2018-07-25] MEDS: POLYETHYLENE (MIRALAX) 17 GM PACK PO SCH (08:23)
[2018-07-25] MEDS: AZITHROMYCIN 500 MG in DEXTROSE 5% 250 ML IV SCH (08:28)
[2018-07-25] MEDS: TAMSULOSIN HCL 0.4 MG CAP PO SCH (08:29)
[2018-07-25] MEDS: TIOTROPIUM BROMIDE 5 PUFF/90 MCG INH INH SCH (08:29)
--- NOTE | 2018-07-25 10:52 | Hospitalist Progress Note ---
Date of Service July 25, 2018 Assessment & Plan (1) COPD exacerbation: still with harsh wheezing, dyspnea at rest and really bad on exertion will increase Solu Medrol to 60mg q8 since no real response on 40mg q8 continue Zithromax, add Rocephin for further antibiotic coverage continue PRN Nebulizers nebulizers consisting of arformoterol and budesonide move to medical floor today (2) Acute bronchitis: still with no real sputum production add Rocephin to Zithromax, continue nebulizers (3) Chronic respiratory failure: Currently he is still using his usual 2 L of oxygen per minute. We will continue this and treat COPD exacerbation continues to be stable, no signs of worsening hypoxia most pressing issue is dyspnea on exertion, no reserves (4) Steroid-dependent COPD: He typically takes prednisone 10mg PO daily at home. He is now on intravenous Solu-Medrol every 8 hours (5) DVT prophylaxis: Lovenox subcu Subjective patient says he is not feeling better at all still with a lot of chest tightness, very short of breath on minimal exertion coughing but with no sputum production slept okay last night appetite is not great this morning no chest pain or pressure, no nausea, no constipation or diarrhea Review of Systems Review of Systems: All systems reviewed & are unremarkable except as noted in HPI & below Constitutional: no fever, no chills and no sweats Respiratory: + cough, + chest congestion, + dyspnea, + dyspnea on exertion and + wheezing Cardiovascular: no chest pain and no edema Gastrointestinal: no abdominal pain, no nausea, no vomiting, no constipation and no diarrhea/loose stools Physical Exam Constitutional: WD/WN, vitals as above Eyes: PERRL, conjunctivae normal, anicteric sclerae ENMT: external ear and nose normal, oropharynx normal Neck: trachea midline, no thyromegaly Respiratory: + labored breathing and + cough; + abnormal respiratory effort Auscultation: + diminished lung sounds, + rhonchi and + wheezes Cardiovascular: RRR, no murmur, no edema Gastrointestinal (Abdomen): normal bowel sounds, soft, nontender, no hepatosplenomegaly Musculoskeletal: Head/Neck/Chest: normocephalic and head atraumatic Extremities: strength 5/5 throughout, + cyanosis and + clubbing Skin: no rashes, warm and dry Neurologic: patellar DTR's 2+ bilat, sensation intact and PERRL, EOMI, accommodation nl, no face palsy, no dysarthria Psychiatric: A+Ox3, euthymic affect Lymphatic: no cervical or axillary lymphadenopathy Results & Data Vital Signs (Past 12 Hours) Vital Signs Temp Pulse Pulse Resp BP Pulse Ox 07/25/18 07:11 36.4 C L 83 20 172/93 H 97 07/25/18 06:55 85 16 95 07/25/18 04:06 36.6 C 69 24 160/91 H 97 07/25/18 00:00 72 07/24/18 23:50 143/75 H 07/24/18 23:38 36.4 C L 72 24 97 Medications Administered Current Inpatient Medications Acetaminophen (Tylenol) 650 mg PO Q4H PRN PRN Reason: Pain or Fever Stop: 08/23/18 13:43 Last Admin: 07/24/18 14:09 Dose: 650 mg Documented by: Al Hydrox/Mg Hydrox/Simethicone (Maalox) 15 ml PO Q4H PRN PRN Reason: Dyspepsia Stop: 08/23/18 13:43 Arformoterol Tartrate (Brovana Neb) 15 mcg INH BIDR [facility] Stop: 08/23/18 19:59 Last Admin: 07/25/18 06:54 Dose: 15 mcg Documented by: Budesonide (Pulmicort Respules) 0.5 mg NEB BIDR [facility] Stop: 08/23/18 19:59 Last Admin: 07/25/18 06:54 Dose: 0.5 mg Documented by: Enoxaparin Sodium (Lovenox) 40 mg SQ Q24H [facility] Stop: 08/23/18 15:59 Last Admin: 07/24/18 15:24 Dose: Not Given Documented by: Azithromycin 500 mg/ Dextrose 255 mls @ 125 mls/hr IV DAILY [facility] Stop: 08/01/18 08:59 Last Infusion: 07/25/18 10:38 Dose: Infused Documented by: Methylprednisolone 60 mg/ (Syringe) 0.96 mls @ 1.5 mls/min IV Q8H [facility] Stop: 08/24/18 17:59 Ondansetron HCl (Zofran) 4 mg IV Q6H PRN PRN Reason: Nausea Stop: 08/23/18 13:43 Polyethylene Glycol (Miralax Powder Packet) 17 gm PO QAM [facility] Stop: 08/24/18 08:59 Last Admin: 07/25/18 08:23 Dose: Not Given Documented by: Tamsulosin HCl (Flomax) 0.4 mg PO DAILY [facility] Stop: 08/24/18 08:59 Last Admin: 07/25/18 08:29 Dose: 0.4 mg Documented by: Tiotropium [place] (Spiriva) 1 puffs INH DAILY [facility] Stop: 08/24/18 08:59 Last Admin: 07/25/18 08:29 Dose: 1 puffs Documented by:
[2018-07-25] MEDS: cefTRIAXone SODIUM 1,000 MG in DEXTROSE 5% 50 ML IV SCH (15:58)
[2018-07-25] MEDS: ENOXAPARIN INJ 40 MG/0.4 ML SYR SQ SCH (15:58)
[2018-07-25] MEDS: methylPREDNISolone 60 MG in SYRINGE 0 ML IV SCH (18:25)
[2018-07-26] MEDS: methylPREDNISolone 60 MG in SYRINGE 0 ML IV SCH ×3 (02:05→17:31)
[2018-07-26] MEDS: BUDESONIDE 0.5 MG/2 ML VIAL (PULMICORT) NEB SCH ×2 (06:57→19:14)
[2018-07-26] MEDS: ARFORMOTEROL TART 15MCG/2ML VIAL INH SCH ×2 (06:57→19:13)
[2018-07-26] MEDS: TIOTROPIUM BROMIDE 5 PUFF/90 MCG INH INH SCH (08:37)
[2018-07-26] MEDS: TAMSULOSIN HCL 0.4 MG CAP PO SCH (08:37)
[2018-07-26] MEDS: POLYETHYLENE (MIRALAX) 17 GM PACK PO SCH (08:37)
[2018-07-26] MEDS: AZITHROMYCIN 500 MG in DEXTROSE 5% 250 ML IV SCH (08:38)
--- NOTE | 2018-07-26 13:27 | Hospitalist Progress Note ---
Date of Service July 26, 2018 Assessment & Plan (1) COPD exacerbation: still wheezing but not as severe, dyspnea at rest and worse on exertion will continue Solu Medrol at 60mg q8 since, responding slowly continue Zithromax and Rocephin for further antibiotic coverage continue PRN Nebulizers nebulizers consisting of arformoterol and budesonide (2) Acute bronchitis: still with no real sputum production continue Rocephin and Zithromax, continue nebulizers (3) Chronic respiratory failure: Currently he is still using his usual 2 L of oxygen per minute. We will continue this and treat COPD exacerbation continues to be stable, no signs of worsening hypoxia most pressing issue is dyspnea on exertion, no reserves (4) Steroid-dependent COPD: He typically takes prednisone 10mg PO daily at home. He is now on intravenous Solu-Medrol every 8 hours (5) DVT prophylaxis: Lovenox subcu change to full admission today Subjective patient reports that breathing is slightly better has some good periods of time where he thinks he is getting a lot better but then goes through coughing spells tolerating nebulizers more appetite is still not great still with dyspnea on exertion Review of Systems Review of Systems: All systems reviewed & are unremarkable except as noted in HPI & below Constitutional: no fever, no chills and no sweats Respiratory: + cough, + dyspnea, + dyspnea on exertion and + wheezing Cardiovascular: no chest pain Gastrointestinal: no abdominal pain, no nausea, no vomiting, no constipation and no diarrhea/loose stools Physical Exam Constitutional: WD/WN, vitals as above Eyes: PERRL, conjunctivae normal, anicteric sclerae ENMT: external ear and nose normal, oropharynx normal Neck: trachea midline, no thyromegaly Respiratory: normal respiratory effort and + cough; no labored breathing Auscultation: + diminished lung sounds and + wheezes (bilaterally); no rhonchi Cardiovascular: RRR, no murmur, no edema Gastrointestinal (Abdomen): normal bowel sounds, soft, nontender, no hepatosplenomegaly Musculoskeletal: Head/Neck/Chest: normocephalic and head atraumatic Extremities: strength 5/5 throughout, + cyanosis and + clubbing Skin: no rashes, warm and dry Neurologic: patellar DTR's 2+ bilat, sensation intact and PERRL, EOMI, accommodation nl, no face palsy, no dysarthria Psychiatric: A+Ox3, euthymic affect Lymphatic: no cervical or axillary lymphadenopathy Results & Data Vital Signs (Past 12 Hours) Vital Signs Temp Pulse Resp BP Pulse Ox 07/26/18 07:27 36.4 C L 79 18 146/73 H 96 07/26/18 06:57 56 L 16 96 Medications Administered Current Inpatient Medications Acetaminophen (Tylenol) 650 mg PO Q4H PRN PRN Reason: Pain or Fever Stop: 08/23/18 13:43 Last Admin: 07/24/18 14:09 Dose: 650 mg Documented by: Al Hydrox/Mg Hydrox/Simethicone (Maalox) 15 ml PO Q4H PRN PRN Reason: Dyspepsia Stop: 08/23/18 13:43 Arformoterol Tartrate (Brovana Neb) 15 mcg INH BIDR [facility] Stop: 08/23/18 19:59 Last Admin: 07/26/18 06:57 Dose: 15 mcg Documented by: Budesonide (Pulmicort Respules) 0.5 mg NEB BIDR [facility] Stop: 08/23/18 19:59 Last Admin: 07/26/18 06:57 Dose: 0.5 mg Documented by: Enoxaparin Sodium (Lovenox) 40 mg SQ Q24H [facility] Stop: 08/23/18 15:59 Last Admin: 07/25/18 15:58 Dose: Not Given Documented by: Azithromycin 500 mg/ Dextrose 255 mls @ 125 mls/hr IV DAILY [facility] Stop: 08/01/18 08:59 Last Infusion: 07/26/18 10:41 Dose: Infused Documented by: Methylprednisolone 60 mg/ (Syringe) 0.96 mls @ 1.5 mls/min IV Q8H [facility] Stop: 08/24/18 17:59 Last Admin: 07/26/18 11:26 Dose: 1.5 mls/min Documented by: Ceftriaxone Sodium 1,000 mg/ (Dextrose) 50 mls @ 100 mls/hr IV Q24H [facility] Stop: 08/01/18 15:59 Last Infusion: 07/25/18 16:31 Dose: Infused Documented by: Ondansetron HCl (Zofran) 4 mg IV Q6H PRN PRN Reason: Nausea Stop: 08/23/18 13:43 Polyethylene Glycol (Miralax Powder Packet) 17 gm PO QAM [facility] Stop: 08/24/18 08:59 Last Admin: 07/26/18 08:37 Dose: Not Given Documented by: Tamsulosin HCl (Flomax) 0.4 mg PO DAILY [facility] Stop: 08/24/18 08:59 Last Admin: 07/26/18 08:37 Dose: 0.4 mg Documented by: Tiotropium [place] (Spiriva) 1 puffs INH DAILY [facility] Stop: 08/24/18 08:59 Last Admin: 07/26/18 08:37 Dose: 1 puffs Documented by:
[2018-07-26] MEDS: cefTRIAXone SODIUM 1,000 MG in DEXTROSE 5% 50 ML IV SCH (16:04)
[2018-07-26] MEDS: ENOXAPARIN INJ 40 MG/0.4 ML SYR SQ SCH (16:05)
[2018-07-26] MEDS ORDERED: ALBUT/IPRATROP 3MG/0.5MG NEB 3 ML VIAL NEB PRN (20:15)
[2018-07-27] MEDS: methylPREDNISolone 60 MG in SYRINGE 0 ML IV SCH ×3 (01:39→17:53)
[2018-07-27] MEDS ORDERED: ALBUT/IPRATROP 3MG/0.5MG NEB 3 ML VIAL NEB SCH (08:00)
[2018-07-27] MEDS: TIOTROPIUM BROMIDE 5 PUFF/90 MCG INH INH SCH (08:48)
[2018-07-27] MEDS: TAMSULOSIN HCL 0.4 MG CAP PO SCH (08:48)
[2018-07-27] MEDS: POLYETHYLENE (MIRALAX) 17 GM PACK PO SCH (08:49)
[2018-07-27] MEDS: AZITHROMYCIN 500 MG in DEXTROSE 5% 250 ML IV SCH (08:54)
[2018-07-27] MEDS: ALBUTEROL HFA 8 GM INHALER INH SCH ×3 (13:55→21:11)
--- NOTE | 2018-07-27 14:22 | Hospitalist Progress Note ---
Date of Service July 27, 2018 Assessment & Plan (1) COPD exacerbation: still wheezing but now it is at the end of exhalation, lungs less tight, dyspnea at rest and worse on exertion will continue Solu Medrol at 60mg q8 since, when we do change to Prednisone it will be high dose continue Zithromax and Rocephin for further antibiotic coverage stop nebulizers as making breathing worse will try just using Albuterol with spacer hold arformoterol and budesonide in setting of acute exacerbation (2) Acute bronchitis: still with no real sputum production continue Rocephin and Zithromax, continue nebulizers complete 7 days total (3) Chronic respiratory failure: Currently he is still using his usual 2 L of oxygen per minute. We will continue this and treat COPD exacerbation continues to be stable, no signs of worsening hypoxia most pressing issue is dyspnea on exertion, no reserves (4) Steroid-dependent COPD: He typically takes prednisone 10mg PO daily at home. He is now on intravenous Solu-Medrol every 8 hours (5) DVT prophylaxis: Lovenox subcu change to full admission today Subjective still with a lot of dyspnea said that after duoneb last night he was having chest pain and dyspnea for 3 hours he refused the duoneb this morning on exam he is wheezing less he says that Albuterol with spacer helps more at home, no dyspnea appetite is still slow to improve Review of Systems Review of Systems: All systems reviewed & are unremarkable except as noted in HPI & below Constitutional: + fatigue and + weakness; no fever, no chills and no sweats Respiratory: + cough, + dyspnea and + dyspnea on exertion; no sputum production and no wheezing Cardiovascular: no chest pain Physical Exam Constitutional: WD/WN, vitals as above Eyes: PERRL, conjunctivae normal, anicteric sclerae ENMT: external ear and nose normal, oropharynx normal Neck: trachea midline, no thyromegaly Respiratory: normal respiratory effort and + cough; no labored breathing Auscultation: + diminished lung sounds and + wheezes (less wheezing, end of exhalation now); no rhonchi Cardiovascular: RRR, no murmur, no edema Gastrointestinal (Abdomen): normal bowel sounds, soft, nontender, no hepatosplenomegaly Musculoskeletal: Head/Neck/Chest: normocephalic and head atraumatic Extremities: strength 5/5 throughout, + cyanosis and + clubbing Skin: no rashes, warm and dry Neurologic: patellar DTR's 2+ bilat, sensation intact and PERRL, EOMI, accommodation nl, no face palsy, no dysarthria Psychiatric: A+Ox3, euthymic affect Lymphatic: no cervical or axillary lymphadenopathy Results & Data Vital Signs (Past 12 Hours) Vital Signs Temp Pulse Resp BP Pulse Ox 07/27/18 07:21 36.5 C 72 16 157/72 H 95 Medications Administered Current Inpatient Medications Acetaminophen (Tylenol) 650 mg PO Q4H PRN PRN Reason: Pain or Fever Stop: 08/23/18 13:43 Last Admin: 07/24/18 14:09 Dose: 650 mg Documented by: Al Hydrox/Mg Hydrox/Simethicone (Maalox) 15 ml PO Q4H PRN PRN Reason: Dyspepsia Stop: 08/23/18 13:43 Albuterol (Ventolin Hfa) 2 puffs INH QIDR [facility] Stop: 08/26/18 11:59 Last Admin: 07/27/18 13:55 Dose: 2 puffs Documented by: Enoxaparin Sodium (Lovenox) 40 mg SQ Q24H [facility] Stop: 08/23/18 15:59 Last Admin: 07/26/18 16:05 Dose: 40 mg Documented by: Azithromycin 500 mg/ Dextrose 255 mls @ 125 mls/hr IV DAILY [facility] Stop: 08/01/18 08:59 Last Infusion: 07/27/18 10:57 Dose: Infused Documented by: Methylprednisolone 60 mg/ (Syringe) 0.96 mls @ 1.5 mls/min IV Q8H [facility] Stop: 08/24/18 17:59 Last Admin: 07/27/18 10:40 Dose: 1.5 mls/min Documented by: Ceftriaxone Sodium 1,000 mg/ (Dextrose) 50 mls @ 100 mls/hr IV Q24H [facility] Stop: 08/01/18 15:59 Last Infusion: 07/26/18 17:21 Dose: Infused Documented by: Ondansetron HCl (Zofran) 4 mg IV Q6H PRN PRN Reason: Nausea Stop: 08/23/18 13:43 Polyethylene Glycol (Miralax Powder Packet) 17 gm PO QAM [facility] Stop: 08/24/18 08:59 Last Admin: 07/27/18 08:49 Dose: 17 gm Documented by: Tamsulosin HCl (Flomax) 0.4 mg PO DAILY [facility] Stop: 08/24/18 08:59 Last Admin: 07/27/18 08:48 Dose: 0.4 mg Documented by: Tiotropium [place] (Spiriva) 1 puffs INH DAILY [facility] Stop: 08/24/18 08:59 Last Admin: 07/27/18 08:48 Dose: 1 puffs Documented by:
[2018-07-27] MEDS: ENOXAPARIN INJ 40 MG/0.4 ML SYR SQ SCH (15:49)
[2018-07-27] MEDS: cefTRIAXone SODIUM 1,000 MG in DEXTROSE 5% 50 ML IV SCH (15:49)
[2018-07-28] MEDS: methylPREDNISolone 60 MG in SYRINGE 0 ML IV SCH ×2 (01:47→09:18)
[2018-07-28] MEDS: ALBUTEROL HFA 8 GM INHALER INH SCH ×4 (07:47→20:13)
[2018-07-28] MEDS: TAMSULOSIN HCL 0.4 MG CAP PO SCH (07:48)
[2018-07-28] MEDS: TIOTROPIUM BROMIDE 5 PUFF/90 MCG INH INH SCH (07:48)
[2018-07-28] MEDS: POLYETHYLENE (MIRALAX) 17 GM PACK PO SCH (07:49)
[2018-07-28] MEDS: AZITHROMYCIN 500 MG in DEXTROSE 5% 250 ML IV SCH (09:18)
[2018-07-28] MEDS ORDERED: LACTATED RINGER'S 1,000 ML IV SCH (10:45)
[2018-07-28] MEDS: cefTRIAXone SODIUM 1,000 MG in DEXTROSE 5% 50 ML IV SCH (16:28)
[2018-07-28] MEDS: ENOXAPARIN INJ 40 MG/0.4 ML SYR SQ SCH (16:31)
--- NOTE | 2018-07-28 16:41 | Hospitalist Progress Note ---
Date of Service July 28, 2018 Assessment & Plan (1) COPD exacerbation: no wheezing today which is the first time in days, still with diminished breath sounds will reduce Solu Medrol to 40mg q8 continue Zithromax and Rocephin for further antibiotic coverage stop nebulizers as making breathing worse will try just using Albuterol with spacer, helping more hold arformoterol and budesonide in setting of acute exacerbation (2) Acute bronchitis: still with no real sputum production continue Rocephin and Zithromax, continue nebulizers complete 7 days total (3) Chronic respiratory failure: Currently he is still using his usual 2 L of oxygen per minute. We will continue this and treat COPD exacerbation continues to be stable, no signs of worsening hypoxia most pressing issue is dyspnea on exertion, no reserves check 2 step to see if he needs to increase oxygen on exertion as this might help dyspnea on exertion (4) Steroid-dependent COPD: He typically takes prednisone 10mg PO daily at home. He is now on intravenous Solu-Medrol every 8 hours will be back on Prednisone on discharge at high dose (5) DVT prophylaxis: Lovenox subcu change to full admission today (6) Constipation: resolved with Miralax and prune juice, stop Miralax because stools were loose today (7) Dehydration: feels dry after moving bowels so much, his PO intake has been suboptimal will give 1 liter of LR check BMP in the morning Subjective patient feeling exhausted this morning said that he moved his bowels a lot this morning, liquid feels like he is drained, almost dehydrated says he walked all the way to the vending machines in the [employer] last evening, took him 20 minutes he kept having to stop and sit and catch his breath coughing but minimal sputum appetite is a little better said that the albuterol was helping compared to the duonebs which made him more short of breath Review of Systems Review of Systems: All systems reviewed & are unremarkable except as noted in HPI & below Constitutional: + fatigue and + weakness; no fever Respiratory: + cough, + dyspnea, + dyspnea on exertion and + sputum production; no pain on inspiration and no wheezing Cardiovascular: + dyspnea and + dyspnea on exertion; no chest pain and no edema Physical Exam Constitutional: WD/WN, vitals as above Eyes: PERRL, conjunctivae normal, anicteric sclerae ENMT: external ear and nose normal, oropharynx normal Neck: trachea midline, no thyromegaly Respiratory: normal respiratory effort and + cough; no labored breathing Auscultation: + diminished lung sounds; no rhonchi and no wheezes Cardiovascular: RRR, no murmur, no edema Gastrointestinal (Abdomen): normal bowel sounds, soft, nontender, no hepatosplenomegaly Musculoskeletal: Head/Neck/Chest: normocephalic and head atraumatic Extremities: strength 5/5 throughout, + cyanosis and + clubbing Skin: no rashes, warm and dry Neurologic: patellar DTR's 2+ bilat, sensation intact and PERRL, EOMI, accommodation nl, no face palsy, no dysarthria Psychiatric: A+Ox3, euthymic affect Lymphatic: no cervical or axillary lymphadenopathy Results & Data Vital Signs (Past 12 Hours) Vital Signs Temp Pulse Resp BP BP Pulse Ox 07/28/18 15:24 36.4 C L 99 H 18 146/79 H 94 07/28/18 07:46 36.7 C 76 18 121/69 96 Medications Administered Current Inpatient Medications Acetaminophen (Tylenol) 650 mg PO Q4H PRN PRN Reason: Pain or Fever Stop: 08/23/18 13:43 Last Admin: 07/24/18 14:09 Dose: 650 mg Documented by: Al Hydrox/Mg Hydrox/Simethicone (Maalox) 15 ml PO Q4H PRN PRN Reason: Dyspepsia Stop: 08/23/18 13:43 Albuterol (Ventolin Hfa) 2 puffs INH QIDR [facility] Stop: 08/26/18 11:59 Last Admin: 07/28/18 16:27 Dose: 2 puffs Documented by: Albuterol (Ventolin Hfa) 2 puffs INH Q2H PRN PRN Reason: Shortness Of Breath Or Wheezing Stop: 08/27/18 10:44 Enoxaparin Sodium (Lovenox) 40 mg SQ Q24H [facility] Stop: 08/23/18 15:59 Last Admin: 07/28/18 16:31 Dose: 40 mg Documented by: Azithromycin 500 mg/ Dextrose 255 mls @ 125 mls/hr IV DAILY [facility] Stop: 08/01/18 08:59 Last Infusion: 07/28/18 11:54 Dose: Infused Documented by: Ceftriaxone Sodium 1,000 mg/ (Dextrose) 50 mls @ 100 mls/hr IV Q24H [facility] Stop: 08/01/18 15:59 Last Admin: 07/28/18 16:28 Dose: 100 mls/hr Documented by: Lactated Ringer's (Lr) 1,000 mls @ 125 mls/hr IV .Q8H [facility] Stop: 07/28/18 18:44 Last Admin: 07/28/18 10:57 Dose: 125 mls/hr Documented by: Methylprednisolone 40 mg/ (Syringe) 0.64 mls @ 1.5 mls/min IV Q8H [facility] Stop: 08/27/18 17:59 Ondansetron HCl (Zofran) 4 mg IV Q6H PRN PRN Reason: Nausea Stop: 08/23/18 13:43 Tamsulosin HCl (Flomax) 0.4 mg PO DAILY [facility] Stop: 08/24/18 08:59 Last Admin: 07/28/18 07:48 Dose: 0.4 mg Documented by: Tiotropium [place] (Spiriva) 1 puffs INH DAILY [facility] Stop: 08/24/18 08:59 Last Admin: 07/28/18 07:48 Dose: 1 puffs Documented by: (1) Constipation Constipation type: other constipation type Qualified Code(s): K59.09 - Other constipation
[2018-07-28] MEDS: methylPREDNISolone 40 MG in SYRINGE 0 ML IV SCH (18:29)
[2018-07-28] MEDS: ALBUTEROL HFA 8 GM INHALER INH PRN (23:59)
[2018-07-29] MEDS: methylPREDNISolone 40 MG in SYRINGE 0 ML IV SCH ×3 (01:45→17:34)
[2018-07-29] MEDS ORDERED: BENZONATATE 100 MG CAPSULE PO PRN (01:54)
[2018-07-29] MEDS: TIOTROPIUM BROMIDE 5 PUFF/90 MCG INH INH SCH (08:04)
[2018-07-29] MEDS: ALBUTEROL HFA 8 GM INHALER INH SCH ×4 (08:05→19:59)
[2018-07-29] MEDS: TAMSULOSIN HCL 0.4 MG CAP PO SCH (08:05)
[2018-07-29 08:32] LABS: Hematocrit (blood only) 42.2 % (42-52); Immature Granulocytes # (auto) 0.07 K/uL (0.00-0.02); Immature Granulocytes % (auto) 0.5 %; Lymphocytes # (auto) 1.02 K/uL (1.2-3.4); Lymphocytes % (auto) 7.6 %; Mean Corpuscular Hgb Conc 33.2 g/dL (32-36); Mean Corpuscular Volume 96.3 fL (80-100); Mean Platelet Volume 10.3 fL (7.4-10.4); Monocytes # (auto) 0.17 K/uL (0.11-0.59); Monocytes % (auto) 1.3 %; Neutrophils # (auto) 12.14 K/uL (1.4-6.5); Neutrophils % (auto) 90.6 %; Platelet Count 347 K/uL (130-400); RDW Coefficient of Variation 13.1 % (11.5-14.5); RDW Standard Deviation 46.4 fL (36.4-46.3); Red Blood Count 4.38 M/uL (4.7-6.1)
[2018-07-29 09:11] LABS: BUN Creatinine Ratio 16.5 (10-20); Calcium 9.7 mg/dl (8.5-10.1); Creatinine Clr Calc Pharmacy 98.3 ml/min; Est GFR (African American) 119.9; Est GFR (Non-African American) 103.4; Potassium 4.6 mmol/L (3.5-5.1)
[2018-07-29] MEDS: AZITHROMYCIN 500 MG in DEXTROSE 5% 250 ML IV SCH (09:49)
[2018-07-29] MEDS: cefTRIAXone SODIUM 1,000 MG in DEXTROSE 5% 50 ML IV SCH (16:59)
[2018-07-29] MEDS: ENOXAPARIN INJ 40 MG/0.4 ML SYR SQ SCH (16:59)
--- NOTE | 2018-07-29 17:24 | Hospitalist Progress Note ---
Date of Service July 29, 2018 Assessment & Plan (1) COPD exacerbation: some wheezing at tail end of exhalation bilaterally, still with diminished breath sounds will continue Solu Medrol at 40mg q8, was reduced from 60 q8 on 07/28 completed 5 days of Zithromax, continue Rocephin for 3 more days stop nebulizers as making breathing worse will try just using Albuterol with spacer, helping more hold arformoterol and budesonide in setting of acute exacerbation today is day 6 of admission, still slow to recover look for improvement over the weekend and hopeful for d/c on Wednesday (2) Acute bronchitis: still with no real sputum production completed Zithromax Rocephin for three more days WBC is 13k, no fever (3) Chronic respiratory failure: Currently he is still using his usual 2 L of oxygen per minute at rest. We will continue this and treat COPD exacerbation continues to be stable, no signs of worsening hypoxia most pressing issue is dyspnea on exertion, no reserves check 2 step to see if he needs to increase oxygen on exertion, only needed to increase to 3L (4) Steroid-dependent COPD: He typically takes prednisone 10mg PO daily at home. He is now on intravenous Solu-Medrol every 8 hours will be back on Prednisone on discharge at high dose suggest very slow taper as he has severe COPD and prone to exacerbation (5) DVT prophylaxis: Lovenox subcu (6) Constipation: resolved with Miralax and prune juice, stop Miralax because stools were loose (7) Dehydration: treated with 1L of LR resolved Subjective patient still not feeling great has dyspnea on exertion, needed to increase O2 to 3L on exertion eating a little better slept better with cough suppressant last night at baseline he says that he can walk up flight of stairs and be just a little winded encouraged him to ambulate in halls but use 3L on exertion Review of Systems Review of Systems: All systems reviewed & are unremarkable except as noted in HPI & below Respiratory: + cough, + dyspnea, + dyspnea on exertion, + sputum production and + wheezing; no pain with cough Physical Exam Constitutional: WD/WN, vitals as above Eyes: PERRL, conjunctivae normal, anicteric sclerae ENMT: external ear and nose normal, oropharynx normal Neck: trachea midline, no thyromegaly Respiratory: normal respiratory effort and + cough; no labored breathing Auscultation: + diminished lung sounds and + wheezes (bilaterally, tail end of exhalation); no rhonchi Cardiovascular: RRR, no murmur, no edema Gastrointestinal (Abdomen): normal bowel sounds, soft, nontender, no hepatosplenomegaly Musculoskeletal: Head/Neck/Chest: normocephalic and head atraumatic Extremities: strength 5/5 throughout, + cyanosis and + clubbing Skin: no rashes, warm and dry Neurologic: patellar DTR's 2+ bilat, sensation intact and PERRL, EOMI, accommodation nl, no face palsy, no dysarthria Psychiatric: A+Ox3, euthymic affect Lymphatic: no cervical or axillary lymphadenopathy Results & Data Vital Signs (Past 12 Hours) Vital Signs Temp Pulse Pulse Pulse Pulse Pulse Pulse 07/29/18 09:02 36.5 C 76 07/29/18 07:45 79 92 H 97 H 82 84 Resp Resp Resp Resp Resp Resp BP 07/29/18 09:02 18 152/79 H 07/29/18 07:45 18 24 24 20 18 Pulse Ox Pulse Ox Pulse Ox Pulse Ox Pulse Ox Pulse Ox 07/29/18 09:02 93 07/29/18 07:45 94 91 87 L 93 87 L Laboratory Results Laboratory Results - last 24 hr 07/29/18 07/29/18 08:20 08:20 WBC 13.40 H RBC 4.38 L Hgb 14.0 Hct 42.2 MCV 96.3 MCH 32.0 MCHC 33.2 RDW Std Deviation 46.4 H RDW Coeff of Renato 13.1 Plt Count 347 MPV 10.3 Immature Gran % (Auto) 0.5 Neut % (Auto) 90.6 Lymph % (Auto) 7.6 Anson % (Auto) 1.3 Eos % (Auto) 0.0 Baso % (Auto) 0.0 Immature Gran # (Auto) 0.07 H Neut # (Auto) 12.14 H Lymph # (Auto) 1.02 L Anson # (Auto) 0.17 Eos # (Auto) 0.00 Baso # (Auto) 0.00 Sodium 140 Potassium 4.6 Chloride 98 Carbon Dioxide 37 H Anion Gap 5.0 BUN 12 Creatinine 0.71 Est Cr Clr Drug Dosing 98.3 Est GFR ( Amer) 119.9 Est GFR (Non-Af Amer) 103.4 BUN/Creatinine Ratio 16.5 Glucose 127 H Calcium 9.7 Medications Administered Current Inpatient Medications Acetaminophen (Tylenol) 650 mg PO Q4H PRN PRN Reason: Pain or Fever Stop: 08/23/18 13:43 Last Admin: 07/24/18 14:09 Dose: 650 mg Documented by: Al Hydrox/Mg Hydrox/Simethicone (Maalox) 15 ml PO Q4H PRN PRN Reason: Dyspepsia Stop: 08/23/18 13:43 Albuterol (Ventolin Hfa) 2 puffs INH QIDR [facility] Stop: 08/26/18 11:59 Last Admin: 07/29/18 19:59 Dose: 2 puffs Documented by: Albuterol (Ventolin Hfa) 2 puffs INH Q2H PRN PRN Reason: Shortness Of Breath Or Wheezing Stop: 08/27/18 10:44 Last Admin: 07/28/18 23:59 Dose: 2 puffs Documented by: Benzonatate (Tessalon Perle) 100 mg PO TID PRN PRN Reason: Cough Stop: 08/28/18 01:53 Last Admin: 07/29/18 03:15 Dose: 100 mg Documented by: Enoxaparin Sodium (Lovenox) 40 mg SQ Q24H [facility] Stop: 08/23/18 15:59 Last Admin: 07/29/18 16:59 Dose: Not Given Documented by: Azithromycin 500 mg/ Dextrose 255 mls @ 125 mls/hr IV DAILY [facility] Stop: 08/01/18 08:59 Last Infusion: 07/29/18 11:52 Dose: Infused Documented by: Ceftriaxone Sodium 1,000 mg/ (Dextrose) 50 mls @ 100 mls/hr IV Q24H [facility] Stop: 08/01/18 15:59 Last Infusion: 07/29/18 17:40 Dose: Infused Documented by: Methylprednisolone 40 mg/ (Syringe) 0.64 mls @ 1.5 mls/min IV Q8H [facility] Stop: 08/27/18 17:59 Last Admin: 07/29/18 17:34 Dose: 1.5 mls/min Documented by: Ondansetron HCl (Zofran) 4 mg IV Q6H PRN PRN Reason: Nausea Stop: 08/23/18 13:43 Tamsulosin HCl (Flomax) 0.4 mg PO DAILY [facility] Stop: 08/24/18 08:59 Last Admin: 07/29/18 08:05 Dose: 0.4 mg Documented by: Tiotropium [place] (Spiriva) 1 puffs INH DAILY [facility] Stop: 08/24/18 08:59 Last Admin: 07/29/18 08:04 Dose: 1 puffs Documented by: (1) Constipation Constipation type: other constipation type Qualified Code(s): K59.09 - Other constipation
[2018-07-30] MEDS: methylPREDNISolone 40 MG in SYRINGE 0 ML IV SCH ×3 (02:15→18:04)
[2018-07-30] MEDS: ALBUTEROL HFA 8 GM INHALER INH PRN (02:18)
[2018-07-30] MEDS: ALBUTEROL HFA 8 GM INHALER INH SCH ×4 (07:50→20:30)
[2018-07-30] MEDS: TAMSULOSIN HCL 0.4 MG CAP PO SCH (07:50)
[2018-07-30] MEDS: TIOTROPIUM BROMIDE 5 PUFF/90 MCG INH INH SCH (08:41)
--- NOTE | 2018-07-30 14:15 | Hospitalist Progress Note ---
Date of Service July 30, 2018 Results & Data Vital Signs (Past 12 Hours) Vital Signs Temp Pulse Resp BP Pulse Ox 07/30/18 07:50 36.5 C 75 23 142/70 H 93
--- NOTE | 2018-07-30 15:01 | XRay Report ---
XR chest 2V routine CLINICAL HISTORY: severe COPD; interval change COMPARISON STUDY: 07/24/2018 FINDINGS: The cardiac and mediastinal contours remain stable. The chest is emphysematous configuratio n. There is no failure. There is no focal pulmonary consolidation. There is chronic blunting of the l ateral costophrenic angles.[ There are postsurgical changes within the left shoulder. IMPRESSION: Emphysema. No acute findings. Electronically signed by: Lawson Rosado M.D. 07/30/2018 2:59 PM
--- NOTE | 2018-07-30 15:01 | XRay Report ---
XR KUB/Abdomen 1 view CLINICAL HISTORY: constipation; assess fecal load COMPARISON STUDY: 01/21/2018 FINDINGS: There is no pathologic bowel dilatation. There is no conventional radiographic evidence of significant fecal retention. IMPRESSION: Unremarkable supine abdomen. Electronically signed by: Lawson Rosado M.D. 07/30/2018 3:00 PM
[2018-07-30] MEDS: guaiFENesin 600 MG TABCR PO SCH ×2 (16:09→21:19)
[2018-07-30] MEDS: ENOXAPARIN INJ 40 MG/0.4 ML SYR SQ SCH (16:09)
[2018-07-30] MEDS: cefTRIAXone SODIUM 1,000 MG in DEXTROSE 5% 50 ML IV SCH (16:10)
--- NOTE | 2018-07-30 19:52 | Hospitalist Progress Note ---
Date of Service July 30, 2018 Assessment & Plan (1) Acute on chronic respiratory failure with hypoxia and hypercapnia: 2nd to COPD exacerbation. ongoing. no change in IV steroids today. repeat cxr today w/o complicating pneumonia or pulmonary edema. add incentive spirometry. supportive care. Present on Admission?: Yes (2) COPD exacerbation: severe exacerbation. no significant improvement overnight. no change in IV steroids today. add back his usual advair 1 puff BID. cont spiriva. chest x-ray w/o acute findings today. completed full course of zithromax. completed 5 days of IV rocephin - in light of no infiltrates on chest x-ray will d/c. cont bronchodilators (he often has a paradoxical response to nebulized albuterol - this was changed to albuterol MDI as a result). add mucinex. incentive spirometry. during his prior stay months ago it took 10+ days of treatment for him to improve. Present on Admission?: Yes (3) BPH (benign prostatic hyperplasia): cont flomax. (4) Constipation: KUB x-ray today w/o significant fecal retention. no issues at this time. (5) DVT prophylaxis: lovenox. Subjective patient reports ongoing cough, chest congestion, and dyspnea. dyspnea worse with any exertion. he reports dyspnea even with trying to eat. denies dysphagia, odynophagia, abd pain, constipation, nausea he reports having been steroid and o2-dependent for months Review of Systems Constitutional: + weight gain (30 pounds since taking prednisone daily); no fever and no chills Respiratory: + cough, + dyspnea on exertion and + wheezing; no hemoptysis Cardiovascular: no chest pain and no paroxysmal nocturnal dyspnea Gastrointestinal: no abdominal pain Physical Exam Constitutional: + thin; no acute distress ENMT: external ear and nose normal, oropharynx normal Respiratory: no respiratory distress Auscultation: + diminished lung sounds and + wheezes; no rales Cardiovascular: Rate/Rhythm: regular rate and regular rhythm Heart Sounds: normal S1 and normal S2; no murmur Vessels: posterior tibial pulses present and dorsalis pedis pulses present; no JVD Extremities: no edema Gastrointestinal (Abdomen): normal bowel sounds, soft, nontender, no hepatosplenomegaly Psychiatric: A+Ox3, euthymic affect Results & Data Vital Signs (Past 12 Hours) Vital Signs Temp Pulse Resp BP Pulse Ox 07/30/18 19:13 36.8 C 93 H 21 126/72 95 Diagnostic Findings cxr - no acute process; emphysematous changes (1) BPH (benign prostatic hyperplasia) Lower urinary tract symptom presence: symptoms absent Qualified Code(s): N40.0 - Benign prostatic hyperplasia without lower urinary tract symptoms (2) Constipation Constipation type: other constipation type Qualified Code(s): K59.09 - Other constipation
[2018-07-31] MEDS: methylPREDNISolone 40 MG in SYRINGE 0 ML IV SCH ×3 (02:01→17:34)
[2018-07-31] MEDS: ALBUTEROL HFA 8 GM INHALER INH SCH ×4 (08:16→19:58)
[2018-07-31] MEDS: TIOTROPIUM BROMIDE 5 PUFF/90 MCG INH INH SCH (08:17)
[2018-07-31] MEDS: guaiFENesin 600 MG TABCR PO SCH ×2 (08:18→19:57)
[2018-07-31] MEDS: TAMSULOSIN HCL 0.4 MG CAP PO SCH (08:18)
[2018-07-31] MEDS: FLUTICASONE/SALMETEROL 250/50 (ADVAIR) 14 PUFF/1 INHALER INH SCH ×2 (08:18→19:57)
[2018-07-31] MEDS: ENOXAPARIN INJ 40 MG/0.4 ML SYR SQ SCH (17:04)
[2018-07-31] MEDS ORDERED: LORazepam 0.5 MG TAB PO PRN (18:51)
--- NOTE | 2018-07-31 19:02 | Hospitalist Progress Note ---
Date of Service July 31, 2018 Assessment & Plan (1) Acute on chronic respiratory failure with hypoxia and hypercapnia: Secondary to COPD exacerbation. ongoing with only minimal improvement -Continue treating for COPD exacerbation with IV steroids as below A repeat cxr on 07/30 is w/o complicating pneumonia or pulmonary edema. Continue incentive spirometry. Continue supportive care. -Continue supplemental O2 to keep pulse ox greater than 90% -May need repeat two-step test to determine needs with exertion as home O2 dosing is 2 L continuously (2) COPD exacerbation: severe exacerbation. I cannot find PFTs in his outpatient record He has been on prednisone 10 mg daily since he had a long steroid taper the end of April Not much improvement so far. Repeat chest x-ray without infiltrate or effusions -Continue IV Solu-Medrol 40 mg every 8 hours and eventually taper back to his home prednisone dose of 10 mg daily -Continue home Advair 1 puff BID - cont spiriva. -Continue guaifenesin 1200 mg p.o. twice daily -Continue benzonatate 100 mg p.o. 3 times daily as needed completed full course of zithromax as an outpatient completed 5 days of IV rocephin here- in light of no infiltrates on chest x-ray, has since been discontinued -cont bronchodilators (he often has a paradoxical response to nebulized albuterol - this was changed to albuterol MDI as a result). -During his prior stay months ago it took 10+ days of treatment for him to improve. - will need follow-up with pulmonology as an outpatient after discharge (3) BPH (benign prostatic hyperplasia): No issues with urinary retention here -Cont flomax. (4) Constipation: KUB x-ray on 07/30 w/o significant fecal retention. no issues at this time but has a history of significant constipation in the past -Continue prune juice as needed -Can give MiraLAX as needed (5) DVT prophylaxis: Lovenox SQ Disposition-remain on medical floor with telemetry for closer monitoring Subjective Patient reports feeling not much improvement since yesterday. He is especially short of breath trying to eat and has a very low appetite. He turned his oxygen up to 3 L with eating and still felt very short of breath and could not eat much. He is moving his bowels somewhat but it is loose. No abdominal pain. Coughing minimal sputum. Also complains of left ankle swelling today. RN reports that he had his legs dangling off the side of the bed today for a while. Denies chest pain Review of Systems Review of Systems: All systems reviewed & are unremarkable except as noted in HPI & below Physical Exam Constitutional: + ill appearing and + thin; no acute distress Eyes: + anicteric sclerae Neck: trachea midline, no thyromegaly Respiratory: no labored breathing Auscultation: + diminished lung sounds (Severely diminished throughout all lung chen with only faint expiratory wheeze in the upper and middle lung chen bilaterally); no crackles and no rhonchi Cardiovascular: Rate/Rhythm: regular rate and regular rhythm Heart Sounds: no murmur Extremities: + edema (Trace edema of the left ankle only); no calf tenderness Gastrointestinal (Abdomen): normal bowel sounds, soft, nontender, no hepatosplenomegaly Musculoskeletal: Extremities: extremities normal to inspection; no cyanosis and no clubbing Skin: no rashes, warm and dry Neurologic: moves all extremities and awake; no focal motor deficits Psychiatric: A+Ox3, euthymic affect Results & Data Vital Signs (Past 12 Hours) Vital Signs Temp Pulse Resp BP Pulse Ox 07/31/18 15:54 36.2 C L 80 20 126/70 98 07/31/18 08:00 36.4 C L 77 19 127/67 94 Laboratory Results Blood cultures no growth to date (1) BPH (benign prostatic hyperplasia) Lower urinary tract symptom presence: symptoms absent Qualified Code(s): N40.0 - Benign prostatic hyperplasia without lower urinary tract symptoms (2) Constipation Constipation type: other constipation type Qualified Code(s): K59.09 - Other constipation
[2018-08-01] MEDS: methylPREDNISolone 40 MG in SYRINGE 0 ML IV SCH ×3 (01:06→19:06)
[2018-08-01] MEDS: ALBUTEROL HFA 8 GM INHALER INH SCH ×4 (07:58→21:56)
[2018-08-01] MEDS: FLUTICASONE/SALMETEROL 250/50 (ADVAIR) 14 PUFF/1 INHALER INH SCH ×2 (07:59→21:56)
[2018-08-01] MEDS: TIOTROPIUM BROMIDE 5 PUFF/90 MCG INH INH SCH (08:00)
[2018-08-01] MEDS: guaiFENesin 600 MG TABCR PO SCH ×2 (08:00→21:56)
[2018-08-01] MEDS: TAMSULOSIN HCL 0.4 MG CAP PO SCH (08:01)
[2018-08-01] MEDS: ENOXAPARIN INJ 40 MG/0.4 ML SYR SQ SCH (15:22)
--- NOTE | 2018-08-01 19:35 | Hospitalist Progress Note ---
Date of Service August 01, 2018 Assessment & Plan (1) Acute on chronic respiratory failure with hypoxia and hypercapnia: Secondary to COPD exacerbation. With some mild improvement finally today He is on his baseline O2 requirement at home but is bumping up to 3 L with eating -Continue treating for COPD exacerbation with IV steroids as below A repeat cxr on 07/30 is w/o complicating pneumonia or pulmonary edema. Continue incentive spirometry. Continue supportive care. -Continue supplemental O2 to keep pulse ox greater than 90% -May need repeat two-step test to determine needs with exertion as home O2 dosing is 2 L continuously (2) COPD exacerbation: With severe exacerbation. I cannot find PFTs in his outpatient record but I suspect he has severe COPD He has been on prednisone 10 mg daily since he had a long steroid taper the end of April Finally with some improvement today Repeat chest x-ray without infiltrate or effusions -Continue IV Solu-Medrol 40 mg every 8 hours and eventually taper back to his home prednisone dose of 10 mg daily-no change in dosing today -Continue home Advair 1 puff BID - cont spiriva. -Continue guaifenesin 1200 mg p.o. twice daily -Continue benzonatate 100 mg p.o. 3 times daily as needed completed full course of zithromax as an outpatient completed 5 days of IV rocephin here- in light of no infiltrates on chest x-ray, has since been discontinued -cont bronchodilators (he often has a paradoxical response to nebulized albuterol - this was changed to albuterol MDI as a result). -During his prior stay months ago it took 10+ days of treatment for him to improve. - will need follow-up with pulmonology as an outpatient after discharge (3) BPH (benign prostatic hyperplasia): No issues with urinary retention here -Cont flomax. (4) Constipation: KUB x-ray on 07/30 w/o significant fecal retention. no issues at this time but has a history of significant constipation in the past Past 2 loose stools on 08/01 -Continue prune juice as needed -Can give MiraLAX as needed (5) DVT prophylaxis: Lovenox SQ Disposition-remain on medical floor, hopeful for discharge in the next 2 to 3 days Subjective Patient feels slightly improved today. Little less short of breath with getting up to the bathroom and little less short of breath with eating today. Appetite slightly improved with dinner. He is coughing somewhat but not much sputum is coming up. Denies chest pain. Had 2 loose stools today. Review of Systems Review of Systems: All systems reviewed & are unremarkable except as noted in HPI & below Physical Exam Constitutional: + ill appearing and + thin; no acute distress Eyes: + anicteric sclerae Neck: trachea midline, no thyromegaly Respiratory: no labored breathing Auscultation: + diminished lung sounds (Severely diminished throughout all lung chen although slightly improved from previous, with faint expiratory wheeze in the upper and middle lung chen bilaterally); no crackles and no rhonchi Cardiovascular: Rate/Rhythm: regular rate and regular rhythm Heart Sounds: no murmur Extremities: no calf tenderness and no edema (Left ankle edema is resolved) Gastrointestinal (Abdomen): normal bowel sounds, soft, nontender, no hepatosplenomegaly Musculoskeletal: Extremities: extremities normal to inspection; no cyanosis and no clubbing Skin: no rashes, warm and dry Neurologic: moves all extremities and awake; no focal motor deficits Psychiatric: A+Ox3, euthymic affect Results & Data Vital Signs (Past 12 Hours) Vital Signs Temp Pulse Resp BP Pulse Ox 08/01/18 14:59 36.5 C 89 20 136/73 96 08/01/18 11:47 36.4 C L 79 20 159/72 H 96 (1) BPH (benign prostatic hyperplasia) Lower urinary tract symptom presence: symptoms absent Qualified Code(s): N40.0 - Benign prostatic hyperplasia without lower urinary tract symptoms (2) Constipation Constipation type: other constipation type Qualified Code(s): K59.09 - Other constipation
[2018-08-02] MEDS: ALBUTEROL HFA 8 GM INHALER INH PRN (00:14)
[2018-08-02] MEDS: methylPREDNISolone 40 MG in SYRINGE 0 ML IV SCH ×2 (02:40→09:13)
[2018-08-02] MEDS: TIOTROPIUM BROMIDE 5 PUFF/90 MCG INH INH SCH (09:13)
[2018-08-02] MEDS: guaiFENesin 600 MG TABCR PO SCH (09:14)
[2018-08-02] MEDS: ALBUTEROL HFA 8 GM INHALER INH SCH ×2 (09:14→12:34)
[2018-08-02] MEDS: FLUTICASONE/SALMETEROL 250/50 (ADVAIR) 14 PUFF/1 INHALER INH SCH (09:14)
[2018-08-02] MEDS: TAMSULOSIN HCL 0.4 MG CAP PO SCH (09:15)
--- NOTE | 2018-08-02 14:35 | Discharge Summary ---
Date of Service August 02, 2018 Admission HPI Per Admitting Provider 58-year-old male with oxygen dependent, steroid dependent COPD. He usually takes 2 L of oxygen at home. He has been ill for the past week with a nonproductive cough and persistent wheezing. This has markedly limited his ability to ambulate. Chest x-ray reveals COPD with no infiltrates. ABGs are pending. Previous venous blood gases did reveal CO2 retention. At this time he only meets observation criteria but he is tachypneic at rest with diffuse bilateral expiratory wheezes and suspected acute bronchitis. He will be placed in observation status for further treatment with intravenous Solu-Medrol, intravenous azithromycin, nebulizers consisting of arformoterol and budesonide. Will hold off on pulmonary consultation until we see how he does over the next 24 hours. Principal Diagnosis COPD with acute exacerbation Discharge Exam Constitutional + ill appearing and + thin; no acute distress Eyes + anicteric sclerae Neck trachea midline, no thyromegaly Respiratory no labored breathing Auscultation: + diminished lung sounds (Severely diminished throughout all lung chen although slightly improved from previous, with faint expiratory wheeze in the upper and middle lung chen bilaterally); no crackles and no rhonchi Cardiovascular Rate/Rhythm: regular rate and regular rhythm Heart Sounds: no murmur Extremities: no calf tenderness and no edema (Left ankle edema is resolved) Gastrointestinal (Abdomen) normal bowel sounds, soft, nontender, no hepatosplenomegaly Musculoskeletal Extremities: extremities normal to inspection; no cyanosis and no clubbing Skin no rashes, warm and dry Neurologic moves all extremities and awake; no focal motor deficits Psychiatric A+Ox3, euthymic affect Discharge Data Allergies Allergy/AdvReac Type Severity Reaction Status Date / Time No Known Allergies Allergy Unverified 07/24/18 09:39 Consultations None Ordered Studies Chest xrays [facility] Hospital Course (1) Acute on chronic respiratory failure with hypoxia and hypercapnia: Secondary to COPD exacerbation. With modest improvement by the day of discharge, able to ambulate short distances without much dyspnea He is on his baseline O2 requirement Treated for COPD exacerbation with IV steroids as below A repeat cxr on 07/30 is w/o complicating pneumonia or pulmonary edema. (2) COPD exacerbation: With severe exacerbation. I cannot find PFTs in his outpatient record but I suspect he has severe COPD He has been on prednisone 10 mg daily since he had a long steroid taper the end of April Finally with some modest improvement today Repeat chest x-ray without infiltrate or effusions -treated with IV Solu-Medrol 40 mg every 8 hours and will send out with Prednisone 40mg bid and then taper back to his home prednisone dose of 10 mg daily -Continue Advair 1 puff BID - cont spiriva. -Continue guaifenesin completed full course of zithromax as an outpatient completed 5 days of IV rocephin here- in light of no infiltrates on chest x-ray, has since been discontinued -cont bronchodilators (he often has a paradoxical response to nebulized albuterol - this was changed to albuterol MDI as a result). - will need follow-up with pulmonology as an outpatient after discharge -pt requesting prn dose of lorazepam for sleep while on high dose steroids- provided #15 tabs of this for at discharge (3) BPH (benign prostatic hyperplasia): No issues with urinary retention here -Cont flomax. (4) Constipation: KUB x-ray on 07/30 w/o significant fecal retention. no issues at this time but has a history of significant constipation in the past Has been moving bowels well here (5) DVT prophylaxis: Lovenox SQ was provided Disposition-stable for dc to home Total Time Total Time Spent Total Time Spent (In Minutes): >30 min Total Time Includes: Examination of the Patient, Discharge Planning and Medication Reconciliation Discharge Plan Discharge Items Patient Disposition: Home - Self-Care Reason For Visit: EXACERBATION COPD Discharge Diagnosis: COPD Exacerbation Condition: Fair Discharge Goals: Diagnostic testing, Improve disease control, Learn about illness and Therapeutic intervention Activity: As commented below Lifting: Gradually increase as tolerated Bathing: No limitations Exercise/Sports: As tolerated Driving/Machine Use: No limitations Non-emergency contact: Primary Care Provider and Traffic Signal Mechanic Call non-emergency contact if: you have any medication questions and your symptoms worsen Follow-up/Referrals: Ethan Berman MD [Primary Care Provider] - (Please call for a follow up appointment within 1 week.) Diet: Regular Addtl Provider Instructions: Please finish out the course of prednisone as below: Take 40mg twice daily x 2 days, then 40mg in the AM and 20mg in the PM x 2 days, then 20mg twice daily x 2 days, then 20mg in the AM and 10mg in the PM x 2 days, then 10mg twice daily x 2 days, then back to 10mg once daily. You can take lorazepam as needed for sleep. Continue albuterol nebulizer or inhaler every 4 hours. Please follow up with your PCP within [address] Mejia within 2-3 weeks. Prescriptions: New fluticasone propion-salmeterol [Advair Diskus] 250-50 mcg/dose Blister With Device 1 puff inhalation BID Qty: 1 RF: 0 guaifenesin [Mucinex] 600 mg Tablet Extended Release 12hr 600 mg PO Q12 Qty: 60 RF: 0 prednisone 20 mg tablet 40 mg PO BID Qty: 23 RF: 0 lorazepam 0.5 mg tablet 0.5 mg PO HS PRN (Reason: sleep) Qty: 15 RF: 0 Continued prednisone 10 mg Tablet 10 mg PO DAILY RF: 0 fluticasone propion-salmeterol 250-50 mcg/dose blister with device 1 puff Inhalation BID RF: 0 albuterol sulfate 90 mcg/actuation HFA aerosol inhaler 2 puff Inhalation Q4H PRN (Reason: Shortness Of Breath) RF: 0 tiotropium bromide 18 mcg capsule, w/inhalation device 1 puff Inhalation DAILY RF: 0 polyethylene glycol 3350 [Miralax] 17 gram Powder In Packet 17 g PO QAM Qty: 1 RF: 0 tamsulosin [Flomax] 0.4 mg capsule 0.4 mg PO DAILY Qty: 30 RF: 2 Changed albuterol sulfate 2.5 mg /3 mL (0.083 %) solution for nebulization 2.5 mg INH Q4H Qty: 1 RF: 2 Stand-Alone Forms: [facility] Discharge Orders: Discharge Order (Routine); Ordered 08/02/18 Ordered By: Louisa Fernández Admission Data Admit Date/Time: 07/26/18 13:27 Attending Provider: Louisa Fernández Admit Provider: Dino Beard Primary Care Provider: Ethan Berman Other Providers: Dino Beard Service: Medical Other Pending Studies at Discharge: No
== END 2018-08-02 16:30 | disposition home or self-care (01) | DRG 189 ==
LOC: 2E 08:28 → ED 08:28 → SUATTDRO 13:18 → 2E 13:35 → 2N 07-25 15:20 → SUATTDRO 07-26 13:27 → 2N 08-02 01:46

== ENCOUNTER 2018-08-06 14:57 | Inpatient (IN) ==
[2018-08-06] MEDS ORDERED: methylPREDNISolone 125 MG/2 ML VIAL IV STA (15:17)
[2018-08-06] MEDS ORDERED: BUDESONIDE/FORMOTEROL FUMARATE 160/4.5 60 PUFFS/INHALER INH STA (15:19)
[2018-08-06] MEDS: MAGNESIUM SULFATE / D5W 1 GM/100 ML BAG IV SCH ×2 (15:25→16:37)
[2018-08-06 15:26] LABS: Hematocrit (blood only) 43.3 % (42-52); Hemoglobin 14.6 g/dL (14.0-18.0); Mean Corpuscular Hgb Conc 33.7 g/dL (32-36); Mean Corpuscular Volume 95.2 fL (80-100); Mean Platelet Volume 9.9 fL (7.4-10.4); Platelet Count 301 K/uL (130-400); RDW Coefficient of Variation 13.1 % (11.5-14.5); RDW Standard Deviation 45.6 fL (36.4-46.3); Red Blood Count 4.55 M/uL (4.7-6.1); White Blood Count 28.16 K/uL (4.8-10.8)
[2018-08-06] MEDS ORDERED: SODIUM CHLORIDE 0.9% 1000ML 1,000 ML IV SCH (15:30)
[2018-08-06 15:37] LABS: INR 0.9 (0.9-1.1); Partial Thromboplastin Ratio 0.7; Prothrombin Time 9.5 Seconds (9.0-12.0)
[2018-08-06 15:45] LABS: Partial Thromboplastin Time < 20.0 Seconds (21.0-31.0)
[2018-08-06 15:46] LABS: Basophils # (auto) 0.03 K/uL (0-0.2); Basophils % (auto) 0.1 %; Eosinophils # (auto) 0.02 K/uL (0-0.5); Eosinophils % (auto) 0.1 %; Immature Granulocytes # (auto) 0.36 K/uL (0.00-0.02); Immature Granulocytes % (auto) 1.3 %; Lymphocytes # (auto) 1.03 K/uL (1.2-3.4); Lymphocytes % (auto) 3.7 %; Monocytes # (auto) 1.69 K/uL (0.11-0.59); Neutrophils # (auto) 25.03 K/uL (1.4-6.5); Neutrophils % (auto) 88.8 %
[2018-08-06 15:48] LABS: Albumin Level 3.5 gm/dl (3.4-5.0); BUN Creatinine Ratio 15.7 (10-20); Calcium 8.9 mg/dl (8.5-10.1); Creatinine Clr Calc Pharmacy 98.7 ml/min; Est GFR (African American) 123.5; Est GFR (Non-African American) 106.6; Potassium 4.5 mmol/L (3.5-5.1)
[2018-08-06 15:52] LABS: Albumin Globulin Ratio 1.2 (0.9-2); Bilirubin,Total 0.4 mg/dl (0.2-1); Total Protein 6.5 gm/dl (6.4-8.2); Troponin I 0.026 ng/ml (0-0.045)
--- NOTE | 2018-08-06 15:57 | XRay Report ---
XR chest 1V portable CLINICAL HISTORY: 58 years-old Male presenting with Dyspnea. TECHNIQUE: Portable upright AP view of the chest was obtained. COMPARISON: 07/30/2018. FINDINGS: Lungs are hyperinflated. Moderate to large left pneumothorax. There is a pleural separation of nearly 4 cm at the apex and a significant basilar component. No significant rightward mediastinal shift at this time. No focal opacity in the underlying lungs. No pleural effusion. Osseous structures normal. Upper abdomen normal. IMPRESSION: 1. Moderate to large left pneumothorax. No evidence of tension at this time. Decompression to be con sidered. The report will be called/faxed according to standard departmental protocol for a critical finding. Electronically signed by: Derrick Ramirez M.D. 08/06/2018 3:55 PM
[2018-08-06 16:00] LABS: Base Excess VBG 6.5 mEq/L; Oxygen Saturation VBG 89.5 %; pH VBG 7.3 (7.36-7.41)
[2018-08-06] MEDS ORDERED: VANCOMYCIN HCL 1,500 MG in SODIUM CHLORIDE 0.9% 500 ML IV ONE (16:15)
[2018-08-06] MEDS ORDERED: PIPERACILL/TAZOBAC CONSULT ACTIVE PRN (16:15)
[2018-08-06] MEDS ORDERED: PIPERACILLIN/TAZOBACTAM 4.5 GM/120 ML BAG IV ONE (16:15)
[2018-08-06] MEDS ORDERED: VANCOMYCIN CONSULT ACTIVE PRN (16:15)
[2018-08-06] MEDS ORDERED: LIDO/EPINEPHRINE/SOD BICARB 20 ML VIAL ONE (16:39)
[2018-08-06] MEDS ORDERED: fentaNYL citrate 100 MCG/2 ML VIAL IV STA (16:46)
--- NOTE | 2018-08-06 16:49 | History & Physical Report ---
Date of Service August 06, 2018 Assessment & Plan (1) Acute on chronic respiratory failure with hypoxia and hypercapnia: - Acute hypoxia is likely related to left sided pneumothorax; does not have chronic resp failure related to COPD. - CXR on admission with moderate to large left pneumothorax; s/p Thoravent placement by ER physician. - F/u CXR showed significant improvement. - CT surgery consulted for evaluation. - Repeat CXR ordered in the morning. - Continuous pulse ox; maintain O2 sat 88-92%. - Tylenol prn mild pain; Oxycodone prn moderate to severe pain. (2) Pneumothorax: - S/p thoravent placement as noted above. - CT surgery consulted. - Pneumothorax was likely related to bleb; no h/o pneumothorax in the past. (3) COPD (chronic obstructive pulmonary disease): - Recently admitted for COPD exacerbation; completed course of Rocephin/Azithro. - Will continue steroid taper -- Pred 40 mg qAM, 20 mg qPM. - No evidence of acute exacerbation at this time. - Continue nebulizer q6hr scheduled; Advair and Spiriva as prescribed. - Will need to follow up with pulm as outpatient. (4) BPH (benign prostatic hyperplasia): - Continue Flomax as prescribed. (5) Pulmonary nodule: - CT in Dec 2017 with nodule of JADE -- will need f/u evaluation. (6) Leukocytosis: - Likely steroid induced in setting of Prednisone taper. - No source of infection; BC are pending. - Monitor CBC qAM. (7) DVT prophylaxis: - SCDs; Hold Lovenox in setting of recent procedure. Dispo: Med/surg for treatment of left sided pneumothorax. History of Present Illness Chief Complaint: Shortness of breath Primary Care Provider: Ethan Berman MD Mr. Vazquez is a 58 year old male with past medical history of COPD, BPH, Chronic respiratory failure with hypoxia and hypercapnia who presented to the ER with acute shortness of breath. He was recently admitted from 07/24-08/02/18 for an acute COPD exacerbation; pt. was advised to complete a steroid taper as an outpatient. He also completed a course of Rocephin/Azithromax during his admission. Pt. reports breathing was improving at home; he developed acute shortness of breath this morning. Has shortness of breath that is constant, both at rest and with exertion. Also complains of left sided chest pain and palpitations. Denies URI symptoms, cough, pharyngitis, LE edema, abd pain, constipation or diarrhea, dysuria or hematuria, nausea or vomiting. ER course: CXR showed a moderate to large left pneumothorax. Thoravent was placed; repeat CXR showed significant decrease in size of left pneumothorax. Will be admitted for treatment of left sided pneumothorax. Allergies Allergy/AdvReac Type Severity Reaction Status Date / Time No Known Allergies Allergy Unverified 08/06/18 15:23 Home Medications Home Medications Medication Instructions Recorded Confirmed Type albuterol sulfate 2 puff INHALATION Q4H PRN 01/08/18 08/06/18 History fluticasone propion-salmeterol 1 puff INHALATION BID 01/08/18 08/06/18 History tiotropium bromide 1 puff INHALATION DAILY 01/08/18 08/06/18 History polyethylene glycol 3350 [Miralax] 17 g PO QAM #1 btl 01/21/18 08/06/18 Rx tamsulosin [Flomax] 0.4 mg PO DAILY #30 cap 01/21/18 08/06/18 Rx prednisone 10 mg PO DAILY 07/24/18 08/06/18 History albuterol sulfate 2.5 mg INH Q4H #1 box 08/02/18 08/06/18 Rx guaifenesin [Mucinex] 600 mg PO Q12 #60 tab 08/02/18 08/06/18 Rx lorazepam 0.5 mg PO HS PRN #15 tab 08/02/18 08/06/18 Rx Past Med/Surg History Medical History Steroid-dependent COPD (Chronic) Chronic respiratory failure (Chronic) COPD exacerbation (Acute) Pulmonary nodule Tobacco abuse Surgical History No pertinent past surgical history Family History Father Family history non-contributory Social History Preferred Language: Thai Communication Ability: Effective Psychologist Research Assistant Required: No Beliefs That Will Affect Care: None Current Living Situation: Parent Current Living Situation Comment: with mom Other Information That Helps Us Care for You: No Feels Safe at Home: Yes Safety Concerns: Feels Safe At This Time Smoking Status: Former smoker Tobacco Type: cigarettes Cigarettes Per Day: 20 Do You Dip or Chew Tobacco: No Smoking End Date: 12/2017 Second Hand Exposure: No Tobacco Cessation Education Requested by Patient: No Hx Alcohol Use: Yes Alcohol type: beer Hx Substance Use: No Review of Systems Review of Systems: All systems reviewed & are unremarkable except as noted in HPI & below Constitutional: no fever, no chills, no fatigue, no weakness and no anorexia Ear, Nose, Mouth, Throat: no nasal congestion, no nasal discharge, no post nasal drip, no facial pain, no sinus pain/pressure and no sore throat Respiratory: + dyspnea and + dyspnea on exertion; no cough and no wheezing Cardiovascular: + chest pain and + palpitations; no radiating jaw, neck or arm pain, no lightheadedness, no syncope and no edema Gastrointestinal: no abdominal pain, no nausea, no vomiting, no constipation and no diarrhea/loose stools Genitourinary: no dysuria, no difficulty urinating and no hematuria Musculoskeletal: no back pain, no joint pain and no myalgia Integumentary: no non-healing lesions Neurologic: no dizziness Hematologic / Lymphatic: no easy bleeding and no easy bruising Allergy / Immunological: no rash Physical Exam Physical Exam: General: In mild distress 2/2 SOB; was present at bedside. HEENT: NC/AT; PERRLA with EOMI; [place] conjunctiva, MMM. No erythema of posterior pharynx Neck: Supple and nontender Cardiac: RRR w/o murmurs, gallops or rubs Lungs: on oxymask; diminished in left upper lung base. Abdomen: Bowel normoactive X 4; Nontender to palpation Rectal: Deferred : Deferred Back: NO spinous tenderness Extremities: Warm. No edema present Neuro: No focal weakness Skin: No rash Results & Data Vital Signs (Past 12 Hours) Vital Signs Temp Pulse Resp BP Pulse Ox 08/06/18 15:28 109 H 27 H 98 08/06/18 15:17 94 08/06/18 15:14 94 08/06/18 14:56 36.8 C 111 H 24 173/99 H 94 Laboratory Results 08/06/18 08/06/18 08/06/18 Range/Units 15:50 15:15 15:15 WBC (4.8-10.8) K/uL RBC (4.7-6.1) M/uL Hgb (14.0-18.0) g/dL Hct (42-52) % MCV (80-100) fL MCH (25-34) pg MCHC (32-36) g/dL RDW Std Deviation (36.4-46.3) fL RDW Coeff of Renato (11.5-14.5) % Plt Count (130-400) K/uL MPV (7.4-10.4) fL Immature Gran % (Auto) % Neut % (Auto) % Lymph % (Auto) % [place] % (Auto) % Eos % (Auto) % Baso % (Auto) % Immature Gran # (Auto) (0.00-0.02) K/uL Neut # (Auto) (1.4-6.5) K/uL Lymph # (Auto) (1.2-3.4) K/uL [place] # (Auto) (0.11-0.59) K/uL Eos # (Auto) (0-0.5) K/uL Baso # (Auto) (0-0.2) K/uL PT 9.5 (9.0-12.0) Seconds INR 0.9 (0.9-1.1) APTT < 20.0 L (21.0-31.0) Seconds PTT Ratio 0.7 VBG pH 7.30 L (7.36-7.41) VBG pCO2 75 H (38-50) mmHg VBG pO2 59 mmHg VBG HCO3 36 mmol/L VBG O2 Saturation 89.5 % VBG Base Excess 6.5 mEq/L Barometric Pressure 735.2 mm/Hg Sodium 135 L (136-145) mmol/L Potassium 4.5 (3.5-5.1) mmol/L Chloride 97 L (98-107) mmol/L Carbon Dioxide 40 H (21-32) mmol/L Anion Gap -2.0 L (3-11) BUN 10 (7-18) mg/dl Creatinine 0.66 (0.6-1.4) mg/dl Est Cr Clr Drug Dosing 98.7 ml/min Est GFR ( Amer) 123.5 Est GFR (Non-Af Amer) 106.6 BUN/Creatinine Ratio 15.7 (10-20) Glucose 110 H (70-99) mg/dl Calcium 8.9 (8.5-10.1) mg/dl Total Bilirubin 0.4 (0.2-1) mg/dl AST 16 (15-37) U/L ALT 28 (12-78) U/L Alkaline Phosphatase 69 (45-117) U/L Troponin I 0.026 (0-0.045) ng/ml Total Protein 6.5 (6.4-8.2) gm/dl Albumin 3.5 (3.4-5.0) gm/dl Globulin 3.0 (2.5-4.0) gm/dl Albumin/Globulin Ratio 1.2 (0.9-2) 08/06/18 Range/Units 15:15 WBC 28.16 H (4.8-10.8) K/uL RBC 4.55 L (4.7-6.1) M/uL Hgb 14.6 (14.0-18.0) g/dL Hct 43.3 (42-52) % MCV 95.2 (80-100) fL MCH 32.1 (25-34) pg MCHC 33.7 (32-36) g/dL RDW Std Deviation 45.6 (36.4-46.3) fL RDW Coeff of Renato 13.1 (11.5-14.5) % Plt Count 301 (130-400) K/uL MPV 9.9 (7.4-10.4) fL Immature Gran % (Auto) 1.3 % Neut % (Auto) 88.8 % Lymph % (Auto) 3.7 % [place] % (Auto) 6.0 % Eos % (Auto) 0.1 % Baso % (Auto) 0.1 % Immature Gran # (Auto) 0.36 H (0.00-0.02) K/uL Neut # (Auto) 25.03 H (1.4-6.5) K/uL Lymph # (Auto) 1.03 L (1.2-3.4) K/uL [place] # (Auto) 1.69 H (0.11-0.59) K/uL Eos # (Auto) 0.02 (0-0.5) K/uL Baso # (Auto) 0.03 (0-0.2) K/uL PT (9.0-12.0) Seconds INR (0.9-1.1) APTT (21.0-31.0) Seconds PTT Ratio VBG pH (7.36-7.41) VBG pCO2 (38-50) mmHg VBG pO2 mmHg VBG HCO3 mmol/L VBG O2 Saturation % VBG Base Excess mEq/L Barometric Pressure mm/Hg Sodium (136-145) mmol/L Potassium (3.5-5.1) mmol/L Chloride (98-107) mmol/L Carbon Dioxide (21-32) mmol/L Anion Gap (3-11) BUN (7-18) mg/dl Creatinine (0.6-1.4) mg/dl Est Cr Clr Drug Dosing ml/min Est GFR ( Amer) Est GFR (Non-Af Amer) BUN/Creatinine Ratio (10-20) Glucose (70-99) mg/dl Calcium (8.5-10.1) mg/dl Total Bilirubin (0.2-1) mg/dl AST (15-37) U/L ALT (12-78) U/L Alkaline Phosphatase (45-117) U/L Troponin I (0-0.045) ng/ml Total Protein (6.4-8.2) gm/dl Albumin (3.4-5.0) gm/dl Globulin (2.5-4.0) gm/dl Albumin/Globulin Ratio (0.9-2) Code Status & VTE Plan Code Status FULL CODE VTE Prophylaxis Plan VTE Prophylaxis will be ordered: Yes Supervising Physician Co-Signing Physician Notes Attending note: patient seen and examined with Teagan Rodríguez PA-C. I agree with her HPI, history, exam, ROS and A/P. I personally reviewed the labs and imaging findings. Patient well known to me from previous admission. He was doing well on Prednisone after discharge for COPD exacerbation. He returns with a left sided pneumothorax which is new finding. Treated with Thoravent in the ED, significant improvement in the pneumothorax. Dr. Cortes contacted, he will follow. - Acute dyspnea and hypoxia: due to spontaneous pneumothorax, treated emergently with Thoravent consult Dr. Cortes for definitive management - COPD: no signs of exacerbation, no wheezing and he was doing well with Prednisone taper until sudden onset dyspnea continue on Prednisone 40mg AM and 20mg PM for full details see the H&P (1) BPH (benign prostatic hyperplasia) Lower urinary tract symptom presence: symptoms absent Qualified Code(s): N40.0 - Benign prostatic hyperplasia without lower urinary tract symptoms
[2018-08-06] MEDS ORDERED: LORazepam 2 MG/4 ML VIAL ONE (16:55)
--- NOTE | 2018-08-06 17:24 | XRay Report ---
XR chest 1V portable CLINICAL HISTORY: 58 years-old Male presenting with s/p thoravent to L axillary for PNX. TECHNIQUE: Portable upright AP view of the chest was obtained. COMPARISON: 08/06/2018 at 3:38 PM. FINDINGS: Interval placement of a left pleural drain. Atherosclerosis of the aortic arch. Cardiac silhouette to p normal in size. Improved aeration of the left lung with significant decrease in size of the left pn eumothorax. A small basilar portion of the pneumothorax likely remains. Right lung and pleural space clear. Anchors noted in the left bony glenoid. IMPRESSION: 1. Significant decrease in size of the left pneumothorax with a small basilar portion remaining. 2. Left pleural drain in place. Electronically signed by: Derrick Ramirez M.D. 08/06/2018 5:23 PM
[2018-08-06] MEDS ORDERED: LORazepam 0.5 MG TAB PO PRN (18:47)
[2018-08-06] MEDS ORDERED: ONDANSETRON INJ 2 MG/ML 2 ML VIAL IV PRN (18:47)
[2018-08-06] MEDS ORDERED: POLYETHYLENE (MIRALAX) 17 GM PACK PO PRN (18:47)
[2018-08-06] MEDS ORDERED: ALBUTEROL 0.083% NEBU SOLN 3 ML VIAL INH PRN (18:47)
[2018-08-06] MEDS ORDERED: OXYCODONE HCL IR 5 MG TAB (IMMEDIATE RELEASE) ONE (19:08)
[2018-08-06] MEDS ORDERED: ALBUTEROL 0.083% NEBU SOLN 3 ML VIAL INH SCH (20:00)
[2018-08-06] MEDS: predniSONE 20 MG TAB PO SCH (21:25)
[2018-08-06] MEDS: FLUTICASONE/SALMETEROL 250/50 (ADVAIR) 14 PUFF/1 INHALER INH SCH (21:25)
--- NOTE | 2018-08-06 21:36 | Pharmacy Report ---
Pharmacy Abx Dose Short Note - Date of Service August 06, 2018 - Assessment & Plan Assessment 58 year old M receiving IV Vancomycin for treatment of possible pneumonia Day # 1 of antimicrobial therapy. * He received Vancomycin 1500mg (~26mg/kg) IV x 1 in the ED as a loading dose * No renal impairment noted. Estimated Ke ~0.087/hr, t1/2 ~7.96 hrs * MRSA nasal swab ordered for potential de-escalation Plan Vancomycin * Initiate Vancomycin 1000mg (~17mg/kg) IV q10 * Goal trough level for pneumonia : 15 to 20 mcg/mL * Trough level ordered for: 08/08/18 @ 0930 (prior to 4th dose and therefore should be reflective of steady state) Pharmacy will continue to follow and will adjust dose/frequency as necessary. Thank you.
[2018-08-06] MEDS: ALBUTEROL 0.083% NEBU SOLN 3 ML VIAL NEB SCH (22:04)
[2018-08-07] MEDS: ALBUTEROL HFA 8 GM INHALER INH PRN ×4 (00:06→20:43)
[2018-08-07] MEDS: OXYCODONE HCL IR 5 MG TAB (IMMEDIATE RELEASE) PO PRN ×2 (01:26→07:36)
[2018-08-07 03:35] LABS: Hematocrit (blood only) 40.9 % (42-52); Hemoglobin 13.8 g/dL (14.0-18.0); Mean Corpuscular Hgb Conc 33.7 g/dL (32-36); Mean Corpuscular Volume 95.3 fL (80-100); Mean Platelet Volume 9.9 fL (7.4-10.4); Platelet Count 259 K/uL (130-400); RDW Coefficient of Variation 13.1 % (11.5-14.5); RDW Standard Deviation 45.7 fL (36.4-46.3); Red Blood Count 4.29 M/uL (4.7-6.1); White Blood Count 21.23 K/uL (4.8-10.8)
[2018-08-07] MEDS ORDERED: VANCOMYCIN HCL 1,000 MG in SODIUM CHLORIDE 0.9% 250 ML IV SCH (04:00)
[2018-08-07 04:07] LABS: BUN Creatinine Ratio 19.7 (10-20); Calcium 8.6 mg/dl (8.5-10.1); Creatinine Clr Calc Pharmacy 105.1 ml/min; Est GFR (African American) 126.7; Est GFR (Non-African American) 109.3; Magnesium 2.7 mg/dl (1.8-2.4)
[2018-08-07 04:12] LABS: Troponin I 0.017 ng/ml (0-0.045)
--- NOTE | 2018-08-07 07:08 | XRay Report ---
XR chest 1V portable HISTORY: 58 years-old Male pneumothorax follow-up study in a patient with left pneumothorax COMPARISON: Chest radiograph 08/06/2018 TECHNIQUE: Portable AP view of the chest FINDINGS: Cardiomediastinal and hilar silhouettes are unchanged. Lungs are mildly hyperinflated. The right lung is clear. Left-sided pleural drainage catheter is stable in positioning. Chronic blunting of left co stophrenic angle. Tiny left pneumothorax redemonstrated with a few millimeters of pleural separation seen at the left lung base. This is unchanged from prior. Bones appear grossly intact. IMPRESSION: Tiny left pneumothorax appears unchanged. Stable positioning of left-sided chest tube. The above report was generated using voice recognition software. It may contain grammatical, syntax o r spelling errors. Electronically signed by: Daniel Hayes M.D. 08/07/2018 7:07 AM
[2018-08-07] MEDS: TAMSULOSIN HCL 0.4 MG CAP PO SCH (07:33)
[2018-08-07] MEDS: predniSONE 20 MG TAB PO SCH ×2 (07:33→20:37)
[2018-08-07] MEDS: FLUTICASONE/SALMETEROL 250/50 (ADVAIR) 14 PUFF/1 INHALER INH SCH ×2 (07:34→20:36)
[2018-08-07] MEDS: TIOTROPIUM BROMIDE 5 PUFF/90 MCG INH INH SCH (07:35)
[2018-08-07] MEDS: ALBUTEROL 0.083% NEBU SOLN 3 ML VIAL NEB SCH (07:36)
[2018-08-07] MEDS ORDERED: ALBUTEROL 0.083% NEBU SOLN 3 ML VIAL NEB PRN (08:28)
[2018-08-07] MEDS: HEPARIN SOD 5,000 UNIT/0.5 ML VIAL SQ SCH ×2 (09:26→20:35)
--- NOTE | 2018-08-07 11:34 | CT Scan Report ---
CT chest wo con CT DOSE: 215.93 mGy.cm CLINICAL HISTORY: 58 years-old Male with pneumothorax / f/u JADE nodule. Follow-up study in a patient with acute left-sided chest pain and shortness of breath. History of left upper lobe pulmonary nodul e TECHNIQUE: Multiaxial CT images of the chest were performed without contrast. A dose lowering techni que was utilized adhering to the principles of ALARA. COMPARISON: Chest radiograph 08/07/2018, CTA chest 01/08/2018 FINDINGS: No focal thyroid nodule. No adenopathy by CT size criteria. Trace pericardial effusion. Coronary giuliana rial calcifications. Heart is normal in size. No thoracic aortic aneurysm. Unopacified pulmonary giuliana ry appears unremarkable. No pneumothorax. Study is limited secondary to respiratory motion. Moderate emphysema. The right lung is generally clear with mild bilateral bronchial wall thickening. Mild pleural parenchymal scarring/ atelectasis of the right middle lobe. Mild bilateral tracheobronchial secretions. Moderate left-sided pneumothorax with small left-sided pleural catheter noted, distal tip terminating adjacent to the le ft upper lobe laterally. There is complete collapse of the left lower lobe with consolidation. Lumina l narrowing of the left lower lobe rhonchorous with associated secretions. No pleural effusion. Mild pleural parenchymal scarring about the left upper lobe posteriorly. Ill-defined 3 mm groundglass nodu larity of the left upper lobe on image 92 series 4. Previously described pulmonary nodules not identi fied definitively. Mild wall thickening about the distal esophagus with possible small hiatal hernia. Moderate subcutane ous emphysema about the left chest wall laterally Bones appear to be intact. Postoperative changes ab out the left glenoid. IMPRESSION: 1. Moderate sized left pneumothorax with stable positioning of the left-sided pleural catheter. 2. Atelectasis with complete collapse of the left lower lobe. Luminal narrowing with secretions noted about the left lower lobe bronchus. 3. Emphysema with bilateral bronchial wall thickening suggestive of bronchitis or reactive airway dis ease. Tracheobronchial secretions are noted bilaterally. 4. No adenopathy. 5. Limited study secondary to respiratory motion artifact. Electronically signed by: Daniel Hayes M.D. 08/07/2018 11:33 AM
--- NOTE | 2018-08-07 12:04 | Consultation Report ---
DATE OF CONSULTATION: 08/07/2018 REASON FOR CONSULTATION: 1. Spontaneous left pneumothorax. 2. Follow up of left upper lobe nodule. HISTORY OF PRESENT ILLNESS: The patient is a 58-year-old male who has terrible chronic obstructive pulmonary disease. He smoked for more than 40 years, but quit in 12/2017. 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 He was admitted with an acute spontaneous left pneumothorax yesterday. He has been admitted in the last year few times with exacerbation of his chronic obstructive pulmonary disease. He developed acute shortness of breath yesterday morning and presented to the Emergency Room with some mild left-sided chest pain and palpitations. A small Thora-Vent was placed with resolution of his pneumothorax. I have been asked to comment on him today. In 12/2017, the patient was admitted to [facility] with acute exacerbation of his COPD and a CT scan was performed, which shows a worrisome abnormality in his left upper lobe. This measured more than 8 mm. In addition, he had a localized bulla to the superior segment of his left lower lobe. In all likelihood, he ruptured that bulla yesterday. I have been asked to comment on him regarding this spontaneous pneumothorax, his blebs, and the left upper lobe nodule. PAST MEDICAL HISTORY: 1. Cigarette smoking (the patient smoked 1 pack a day for more than 40 years, but stopped on 01/08/2018). 2. Steroid dependent chronic obstructive pulmonary disease. 3. Benign prostatic hypertrophy. PAST SURGICAL HISTORY: None. MEDICATIONS AT HOME: 1. Ativan. 2. Multiple inhalers. 3. Flomax. 4. Prednisone. 5. Mucinex. ALLERGIES: No known drug allergies. SOCIAL HISTORY: The patient is employed, although difficult for him because of his breathing. He lives with his mother. His mother is a patient of [facility]. FAMILY MEDICAL HISTORY: The patient has 2 children. His oldest son had asthma as a child, but not grew this. He has 2 grandchildren that are healthy. His father in his 70s from a metastatic melanoma. His mother is a patient of mine. Had an adenocarcinoma of her lung, underwent a lung resection last year. She also is a very tiny woman having had short gut issues due to surgeries. She currently is being worked up for probable recurrent disease. REVIEW OF SYSTEMS: The patient has lost weight over the last year or so. He states he has lost as much as 30 pounds. He denies fevers or chills. He denies any muscle weakness and has been working. He does have marked dyspnea on exertion, but denies productive cough or hemoptysis. Upon presenting yesterday when he suffered a spontaneous left pneumothorax, he had a left chest pain which was pleuritic in nature and also had palpitations; however, this has resolved since the tube was placed. This is a small catheter in his left chest, which has some local pain. He denies any GI or symptoms such as nausea, vomiting, diarrhea. He has had no symptoms. He denies any peripheral edema. He has had no joint effusions. He has had no skin breakdown. He denies any visual or auditory symptoms. PHYSICAL EXAMINATION: GENERAL: This is a smallish male who stands 5 feet 5 inches tall and weighs approximately 130 pounds. He is awake and alert. HEENT: His extraocular movements are intact. His pupils are equally round and reactive. Sclerae pale, but anicteric. His tongue is midline. He has no oral mucosal lesions. NECK: Supple. I detect no supraclavicular or cervical lymphadenopathy or neck vein distention. He has no tracheal deviation. HEART: He has a regular rate and rhythm of his heart. LUNGS: He has markedly decreased breath sounds on both sides. The Thora-Vent is in his lateral left chest and appears to be functioning. He has no significant wheezing. He has a few rhonchi on the left. ABDOMEN: Flat, soft, nontender. No evidence of ascites or hepatosplenomegaly. EXTREMITIES: I detect no peripheral edema. He has good femoral pulses. His feet are warm and well perfused and bit difficulty palpating his pedal pulses. NEUROLOGIC: He is awake, alert and oriented. He has no focal deficits. Cranial nerves II-XII are intact. ASSESSMENT: 1. Spontaneous left pneumothorax in a patient with severe chronic obstructive pulmonary disease who has a bulla in the superior segment of the left lower lobe. 2. Left upper lobe nodule noted in 12/2017. PLAN: I discussed this case with Teagan Doty, who is his primary care provider here on the hospitalist service. I am going to repeat a CT scan without contrast to assess this nodule and also to assess this bulla. My threshold for offering him an operation to wedge out this bulla would be fairly low. We will see what the CT scan shows and I may go ahead and do while he is here this week.
--- NOTE | 2018-08-07 12:13 | Hospitalist Progress Note ---
Date of Service August 07, 2018 Assessment & Plan (1) Acute on chronic respiratory failure with hypoxia and hypercapnia: - Acute hypoxia and SOB likely related to left sided pneumothorax; does have chronic resp failure related to COPD. - CXR on admission with moderate to large left pneumothorax; s/p Thoravent placement in the ER. - CT chest this morning showed moderate left pneumothorax, atelectasis with complete collapse of the left lower lung. - CT surgery following, may require procedure for bulla in setting of pneumothorax. - Maintain O2 sat 88-92% - stable on 2-3L via NC. - Tylenol and Oxycodone prn pain. (2) Pneumothorax: - S/p thoravent placement as noted above. - CT surgery following, appreciate input. - Pneumothorax was likely related to bleb; no h/o pneumothorax in the past. May require wedge resection during this admission. (3) COPD (chronic obstructive pulmonary disease): - Recently admitted for COPD exacerbation; completed course of Rocephin/Azithro. - Continue steroid taper -- Pred 40 mg qAM, 20 mg qPM. - No evidence of acute exacerbation at this time. - Continue nebulizers prn; Advair and Spiriva as prescribed. - Will need to follow up with pulm as outpatient. (4) BPH (benign prostatic hyperplasia): - Continue Flomax as prescribed. (5) Pulmonary nodule: - CT in Dec 2017 with nodule of JADE -- repeat CT chest did not identify previously noted nodule. (6) Leukocytosis: - Likely steroid induced in setting of Prednisone taper and related to inflammation. - No source of infection; BC are pending. - Monitor CBC qAM. (7) DVT prophylaxis: - SCDs; Heparin q12hr -- will need to hold for procedure. Dispo: Med/surg for treatment of left sided pneumothorax. CT surgery following. Supervising Physician Co-Signing Physician Notes PA Supervision Note: I did not personally see or examine the patient today, but I verified all mcnair points of CHRISTI Rodríguez's assessment and plan with the following except ions/additions: None Subjective Breathing is improved, stable on 2-3L via NC. Does have ongoing SOB at rest. Has a poor appetite, PO intake is limited. CT surgery following. Review of Systems Review of Systems: All systems reviewed & are unremarkable except as noted in HPI & below Constitutional: + fatigue, + weakness and + anorexia; no fever and no chills Respiratory: + dyspnea and + dyspnea on exertion; no cough and no wheezing Cardiovascular: no chest pain, no palpitations and no edema Gastrointestinal: no abdominal pain, no nausea and no constipation Genitourinary: no difficulty urinating Musculoskeletal: no back pain and no joint pain Allergy / Immunological: no rash Physical Exam Physical Exam: General: No acute distress. HEENT: NC/AT; PERRLA with EOMI; [place] conjunctiva, MMM. No erythema of posterior pharynx Neck: Supple and nontender Cardiac: RRR w/o murmurs, gallops or rubs Lungs: Thoravent in place on left lateral chest; on 3L via NC; diminished bilaterally. Abdomen: Bowel normoactive X 4; Nontender to palpation Extremities: Warm. No edema present Neuro: No focal weakness Skin: No rash Results & Data Vital Signs (Past 12 Hours) Vital Signs Temp Pulse Resp BP Pulse Ox 08/07/18 07:08 36.6 C 76 16 136/74 93 08/07/18 06:27 93 Laboratory Results 08/07/18 08/07/18 08/06/18 Range/Units 03:09 03:09 20:50 WBC 21.23 H (4.8-10.8) K/uL RBC 4.29 L (4.7-6.1) M/uL Hgb 13.8 L (14.0-18.0) g/dL Hct 40.9 L (42-52) % MCV 95.3 (80-100) fL MCH 32.2 (25-34) pg MCHC 33.7 (32-36) g/dL RDW Std Deviation 45.7 (36.4-46.3) fL RDW Coeff of Renato 13.1 (11.5-14.5) % Plt Count 259 (130-400) K/uL MPV 9.9 (7.4-10.4) fL Immature Gran % (Auto) % Neut % (Auto) % Lymph % (Auto) % [place] % (Auto) % Eos % (Auto) % Baso % (Auto) % Immature Gran # (Auto) (0.00-0.02) K/uL Neut # (Auto) (1.4-6.5) K/uL Lymph # (Auto) (1.2-3.4) K/uL [place] # (Auto) (0.11-0.59) K/uL Eos # (Auto) (0-0.5) K/uL Baso # (Auto) (0-0.2) K/uL PT (9.0-12.0) Seconds INR (0.9-1.1) APTT (21.0-31.0) Seconds PTT Ratio VBG pH (7.36-7.41) VBG pCO2 (38-50) mmHg VBG pO2 mmHg VBG HCO3 mmol/L VBG O2 Saturation % VBG Base Excess mEq/L Barometric Pressure mm/Hg Sodium 135 L (136-145) mmol/L Potassium 5.0 (3.5-5.1) mmol/L Chloride 99 (98-107) mmol/L Carbon Dioxide 34 H (21-32) mmol/L Anion Gap 2.0 L (3-11) BUN 12 (7-18) mg/dl Creatinine 0.62 (0.6-1.4) mg/dl Est Cr Clr Drug Dosing 105.1 ml/min Est GFR ( Amer) 126.7 Est GFR (Non-Af Amer) 109.3 BUN/Creatinine Ratio 19.7 (10-20) Glucose 102 H (70-99) mg/dl Calcium 8.6 (8.5-10.1) mg/dl Magnesium 2.7 H (1.8-2.4) mg/dl Total Bilirubin (0.2-1) mg/dl AST (15-37) U/L ALT (12-78) U/L Alkaline Phosphatase (45-117) U/L Troponin I 0.017 0.032 (0-0.045) ng/ml Total Protein (6.4-8.2) gm/dl Albumin (3.4-5.0) gm/dl Globulin (2.5-4.0) gm/dl Albumin/Globulin Ratio (0.9-2) Nasal Screen MRSA (PCR) (Negative) 08/06/18 08/06/18 08/06/18 Range/Units 19:27 15:50 15:15 WBC (4.8-10.8) K/uL RBC (4.7-6.1) M/uL Hgb (14.0-18.0) g/dL Hct (42-52) % MCV (80-100) fL MCH (25-34) pg MCHC (32-36) g/dL RDW Std Deviation (36.4-46.3) fL RDW Coeff of Renato (11.5-14.5) % Plt Count (130-400) K/uL MPV (7.4-10.4) fL Immature Gran % (Auto) % Neut % (Auto) % Lymph % (Auto) % [place] % (Auto) % Eos % (Auto) % Baso % (Auto) % Immature Gran # (Auto) (0.00-0.02) K/uL Neut # (Auto) (1.4-6.5) K/uL Lymph # (Auto) (1.2-3.4) K/uL [place] # (Auto) (0.11-0.59) K/uL Eos # (Auto) (0-0.5) K/uL Baso # (Auto) (0-0.2) K/uL PT (9.0-12.0) Seconds INR (0.9-1.1) APTT (21.0-31.0) Seconds PTT Ratio VBG pH 7.30 L (7.36-7.41) VBG pCO2 75 H (38-50) mmHg VBG pO2 59 mmHg VBG HCO3 36 mmol/L VBG O2 Saturation 89.5 % VBG Base Excess 6.5 mEq/L Barometric Pressure 735.2 mm/Hg Sodium 135 L (136-145) mmol/L Potassium 4.5 (3.5-5.1) mmol/L Chloride 97 L (98-107) mmol/L Carbon Dioxide 40 H (21-32) mmol/L Anion Gap -2.0 L (3-11) BUN 10 (7-18) mg/dl Creatinine 0.66 (0.6-1.4) mg/dl Est Cr Clr Drug Dosing 98.7 ml/min Est GFR ( Amer) 123.5 Est GFR (Non-Af Amer) 106.6 BUN/Creatinine Ratio 15.7 (10-20) Glucose 110 H (70-99) mg/dl Calcium 8.9 (8.5-10.1) mg/dl Magnesium (1.8-2.4) mg/dl Total Bilirubin 0.4 (0.2-1) mg/dl AST 16 (15-37) U/L ALT 28 (12-78) U/L Alkaline Phosphatase 69 (45-117) U/L Troponin I 0.026 (0-0.045) ng/ml Total Protein 6.5 (6.4-8.2) gm/dl Albumin 3.5 (3.4-5.0) gm/dl Globulin 3.0 (2.5-4.0) gm/dl Albumin/Globulin Ratio 1.2 (0.9-2) Nasal Screen MRSA (PCR) Negative (Negative) 08/06/18 08/06/18 Range/Units 15:15 15:15 WBC 28.16 H (4.8-10.8) K/uL RBC 4.55 L (4.7-6.1) M/uL Hgb 14.6 (14.0-18.0) g/dL Hct 43.3 (42-52) % MCV 95.2 (80-100) fL MCH 32.1 (25-34) pg MCHC 33.7 (32-36) g/dL RDW Std Deviation 45.6 (36.4-46.3) fL RDW Coeff of Renato 13.1 (11.5-14.5) % Plt Count 301 (130-400) K/uL MPV 9.9 (7.4-10.4) fL Immature Gran % (Auto) 1.3 % Neut % (Auto) 88.8 % Lymph % (Auto) 3.7 % [place] % (Auto) 6.0 % Eos % (Auto) 0.1 % Baso % (Auto) 0.1 % Immature Gran # (Auto) 0.36 H (0.00-0.02) K/uL Neut # (Auto) 25.03 H (1.4-6.5) K/uL Lymph # (Auto) 1.03 L (1.2-3.4) K/uL [place] # (Auto) 1.69 H (0.11-0.59) K/uL Eos # (Auto) 0.02 (0-0.5) K/uL Baso # (Auto) 0.03 (0-0.2) K/uL PT 9.5 (9.0-12.0) Seconds INR 0.9 (0.9-1.1) APTT < 20.0 L (21.0-31.0) Seconds PTT Ratio 0.7 VBG pH (7.36-7.41) VBG pCO2 (38-50) mmHg VBG pO2 mmHg VBG HCO3 mmol/L VBG O2 Saturation % VBG Base Excess mEq/L Barometric Pressure mm/Hg Sodium (136-145) mmol/L Potassium (3.5-5.1) mmol/L Chloride (98-107) mmol/L Carbon Dioxide (21-32) mmol/L Anion Gap (3-11) BUN (7-18) mg/dl Creatinine (0.6-1.4) mg/dl Est Cr Clr Drug Dosing ml/min Est GFR ( Amer) Est GFR (Non-Af Amer) BUN/Creatinine Ratio (10-20) Glucose (70-99) mg/dl Calcium (8.5-10.1) mg/dl Magnesium (1.8-2.4) mg/dl Total Bilirubin (0.2-1) mg/dl AST (15-37) U/L ALT (12-78) U/L Alkaline Phosphatase (45-117) U/L Troponin I (0-0.045) ng/ml Total Protein (6.4-8.2) gm/dl Albumin (3.4-5.0) gm/dl Globulin (2.5-4.0) gm/dl Albumin/Globulin Ratio (0.9-2) Nasal Screen MRSA (PCR) (Negative) (1) BPH (benign prostatic hyperplasia) Lower urinary tract symptom presence: symptoms absent Qualified Code(s): N40.0 - Benign prostatic hyperplasia without lower urinary tract symptoms
[2018-08-07] MEDS: ACETAMINOPHEN 325 MG TAB PO PRN ×2 (13:10→18:46)
--- NOTE | 2018-08-07 14:26 | Emergency Department Note ---
Entered by Dino Berg acting as a scribe for Harvey Forman MD History of Present Illness General Chief complaint: Shortness of Breath/Dyspnea Stated complaint: sob Time Seen by Provider: 08/06/18 15:04 Source: patient History of Present Illness Provider complaint: Shortness of breath Onset (ago): hour(s) 5 Location: chest Radiation: non-radiation Pain Consistency: + constant Maximum Pain Intensity: 3 Quality: + other (Tightness) Relieved By: + none Exacerbated By: + none Associated symptoms: + cough and + shortness of breath; no chest pain The patient is a 58 year old male w/ PMHx of COPD, BPH, and pulmonary nodule who presents to the ED w/ CC of constant shortness of breath that started this morning around 1000, 5 hours ago. The patient states he does not have chest pain but his chest is very tight making it difficult for him to breathe. He states this episode does feel similar to his previous COPD flare ups. The patient normally wears 2L of oxygen at baseline and prior to arrival he used his rescue inhaler several times. He was just discharged from the hospital on August 02 after being hospitalized for COPD exacerbation. He was not discharged with any antibiotics, but he was given steroids. His last dose of steroids was today at 1300. The patient is a former smoker, having quit in December 2017. Home Medications Home Medications Medication Instructions Recorded Confirmed Type albuterol sulfate 2 puff INHALATION Q4H PRN 01/08/18 08/06/18 History fluticasone propion-salmeterol 1 puff INHALATION BID 01/08/18 08/06/18 History tiotropium bromide 1 puff INHALATION DAILY 01/08/18 08/06/18 History polyethylene glycol 3350 [Miralax] 17 g PO QAM #1 btl 01/21/18 08/06/18 Rx tamsulosin [Flomax] 0.4 mg PO DAILY #30 cap 01/21/18 08/06/18 Rx prednisone 10 mg PO DAILY 07/24/18 08/06/18 History albuterol sulfate 2.5 mg INH Q4H #1 box 08/02/18 08/06/18 Rx guaifenesin [Mucinex] 600 mg PO Q12 #60 tab 08/02/18 08/06/18 Rx lorazepam 0.5 mg PO HS PRN #15 tab 08/02/18 08/06/18 Rx Allergies Allergy/AdvReac Type Severity Reaction Status Date / Time No Known Allergies Allergy Unverified 08/06/18 15:23 Past Med/Surg History Medical History Steroid-dependent COPD (Chronic) Chronic respiratory failure (Chronic) COPD exacerbation (Acute) Pulmonary nodule Tobacco abuse Surgical History No pertinent past surgical history Family History Father Family history non-contributory Social History Preferred Language: [place] Communication Ability: Effective 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 and A total of 10 systems reviewed and were otherwise negative Physical Exam Vital Signs Vital Signs - 24 hr 08/06/18 15:13 08/06/18 15:14 08/06/18 15:17 Pulse Rate Pulse Rate [Left Finger] Pulse Rate from SpO2 Sensor Respiratory Rate Respiratory Effort / Characteristics Accessory Muscle Use Labored Short of Breath SOB on Exertion Respiratory Depth Normal Respiratory Pattern Regular Blood Pressure Blood Pressure [Right Arm] Blood Pressure Mean Blood Pressure Mean [Right Arm] Pulse Oximetry 94 94 Oxygen Delivery Method Nasal Cannula Nasal Cannula Nasal Cannula Oxygen Flow Rate 4 4 4 Fraction of Inspired Oxygen 08/06/18 15:28 08/06/18 17:00 08/06/18 17:05 Pulse Rate 109 H 105 H 115 H Pulse Rate [Left Finger] 105 H Pulse Rate from SpO2 Sensor 105 H 113 H Respiratory Rate 27 H 29 H 29 H Respiratory Effort / Characteristics Short of Breath Tripoding Respiratory Depth Respiratory Pattern Tachypnea Blood Pressure 172/83 H 171/88 H Blood Pressure [Right Arm] 171/83 H Blood Pressure Mean 112 115 Blood Pressure Mean [Right Arm] 112 Pulse Oximetry 98 100 100 Oxygen Delivery Method Non-rebreather Oxygen Flow Rate 15 Fraction of Inspired Oxygen 40 08/06/18 17:11 08/06/18 17:15 08/06/18 17:20 Pulse Rate 110 H 103 H 97 H Pulse Rate [Left Finger] Pulse Rate from SpO2 Sensor 108 H 102 H 97 H Respiratory Rate 35 H 28 H 33 H Respiratory Effort / Characteristics Respiratory Depth Respiratory Pattern Blood Pressure 148/78 H 141/74 H 139/68 Blood Pressure [Right Arm] Blood Pressure Mean 101 96 91 Blood Pressure Mean [Right Arm] Pulse Oximetry 100 98 98 Oxygen Delivery Method Oxygen Flow Rate Fraction of Inspired Oxygen GENERAL: Moderate distress, tachypneic, non-toxic. EYE EXAM: Normal conjunctiva. PERRL, no anisocoria and EOM's grossly intact w/o pain. OROPHARYNX: Moist mucus membranes. Grossly normal dentition. NECK: Supple, no nuchal rigidity, no adenopathy, non-tender. No signs of meningismus. LUNGS: Wheezes throughout, shallow breaths, tachypneic, accessory muscle use noted. HEART: NSR, no MRG. ABDOMEN: Abdomen soft, non-tender, normo-active bowel sounds, no masses, no rebound or guarding. BACK: No CVA TTP. SKIN: No rashes and no bruising. UPPER EXTREMITIES: Upper extremities are grossly normal. LOWER EXTREMITIES: No pitting edema. No calf pain. NEURO EXAM: A&O x3, cranial nerves II-XII grossly intact, normal speech, moves all 4 extremities on command w/o issue. Procedures Free Text Procedures Thoravent (chest tube) Placement Indication: Moderate to large L sided pneumothorax Location: L Chest Written consent was obtained discussing risks and benefits of doing the procedure versus not. A time-out was completed verifying correct patient, procedure, site, positioning, and special equipment if applicable. The patient was positioned appropriately for thoravent placement. The patients L chest was prepped and draped in sterile fashion. 1% Lidocaine w/ epinephrine 10 cc's in t otal was used to anesthetize the surrounding skin area down to the rib. A 2 cm skin incision was made in the mid-axillary line at the lateral chest wall. The thoravent was placed a subcutaneously and adjacent to the superior rib. The pleural space was entered and the catheter was advanced. Air was manually aspirated from the thoravent. The thoravent was secured to the skin and a dressing applied. A chest x-ray obtained, which showed improvement of the patient's pneumothorax. Patient tolerated the procedure well and had no complications. Course 1512: The patient was evaluated in room C11B, and a complete history and physical examination were performed. 1547: The patient is tolerating BiPAP well. 1623: I spoke to Dr. Alex Nuñez [facility] for Dr. Marsh [facility] Hospitalist about the patient's case and they are going to accept him for further evaluation. 1625: I spoke to Dr. Cortes - [facility] about the patient's case and informed him of the size of the patient's pneumothorax. 1631: I updated the patient on results and treatment plan. 1650: I put a chest tube in the patient. See procedure not for more information. Consultations Consultation #1: I spoke to Dr. Alex Nuñez [facility] for Dr. Marsh [facility] Hospitalist about the patient's case and they are going to accept him for further evaluation. Time: 16:23 Consultation #2: I spoke to Dr. Cortes - [facility] about the patient's case and informed him of the size of the patient's pneumothorax. Time: 16:25 Administered Medications Acetaminophen (Tylenol) 650 mg PO Q4H PRN PRN Reason: Mild Pain Stop: 09/05/18 18:46 Last Admin: 08/07/18 13:10 Dose: 650 mg Documented by: [id number] Albuterol (Ventolin Hfa) 2 puffs INH Q4H PRN PRN Reason: Shortness Of Breath Stop: 09/05/18 18:46 Last Admin: 08/07/18 09:28 Dose: 2 puffs Documented by: [id number] Admin: 08/07/18 00:06 Dose: 2 puffs Documented by: [id number] Heparin Sodium (Porcine) (Heparin Sodium (Porcine)) 5,000 units SQ Q12 [facility] Stop: 09/06/18 08:59 Last Admin: 08/07/18 09:26 Dose: 5,000 units Documented by: [id number] Cosigned by: [id number] Oxycodone HCl (Roxicodone Immediate Rel) 5 mg PO Q6H PRN PRN Reason: Moderate Pain Stop: 08/20/18 18:46 Last Admin: 08/07/18 07:36 Dose: 5 mg Documented by: [id number] Admin: 08/07/18 01:26 Dose: 5 mg Documented by: [id number] Prednisone (Prednisone) 20 mg PO QPM [facility] Stop: 09/05/18 20:59 Last Admin: 08/06/18 21:25 Dose: 20 mg Documented by: [id number] Prednisone (Prednisone) 40 mg PO QAM [facility] Stop: 09/06/18 08:59 Last Admin: 08/07/18 07:33 Dose: 40 mg Documented by: [id number] Fluticasone/Salmeterol (Advair Diskus 250/50) 1 puffs INH BID [facility] Stop: 09/05/18 20:59 Last Admin: 08/07/18 07:34 Dose: 1 puffs Documented by: [id number] Admin: 08/06/18 21:25 Dose: 1 puffs Documented by: [id number] Tamsulosin HCl (Flomax) 0.4 mg PO DAILY [facility] Stop: 09/06/18 08:59 Last Admin: 08/07/18 07:33 Dose: 0.4 mg Documented by: [id number] Tiotropium [place] (Spiriva) 1 puffs INH DAILY [facility] Stop: 09/06/18 08:59 Last Admin: 08/07/18 07:35 Dose: 1 puffs Documented by: [id number] Discontinued Medications Albuterol (Ventolin 0.083% 2.5mg/3ml) 2.5 mg NEB Q6RWA [facility] Stop: 09/05/18 20:59 Last Admin: 08/07/18 07:36 Dose: Not Given Documented by: [id number] Admin: 08/06/18 22:04 Dose: Not Given Documented by: [id number] Budesonide/Formoterol Fumarate (Symbicort 160mcg/4.5mcg) 2 puffs INH NOW STA Stop: 08/06/18 15:20 Last Admin: 08/06/18 16:19 Dose: 2 puffs Documented by: [id number] Fentanyl Citrate (Fentanyl Citrate) 50 mcg IV NOW STA Stop: 08/06/18 16:47 Last Admin: 08/06/18 17:29 Dose: Not Given Documented by: [id number] Sodium Chloride (Nss 1000ml) 1,000 mls @ 999 mls/hr IV .Q1H1M [facility] Stop: 08/06/18 16:30 Last Infusion: 08/06/18 16:36 Dose: 0 mls/hr Documented by: [id number] Admin: 08/06/18 15:39 Dose: 999 mls/hr Documented by: [id number] Magnesium Sulfate/Dextrose (Magnesium Sulfate / D5w) 1 gm in 100 mls @ 100 mls/hr IV Q1H [facility] Stop: 08/06/18 17:29 Last Infusion: 08/06/18 17:41 Dose: 0 mls/hr Documented by: [id number] Admin: 08/06/18 16:37 Dose: 100 mls/hr Documented by: [id number] Infusion: 08/06/18 16:36 Dose: 0 mls/hr Documented by: [id number] Admin: 08/06/18 15:25 Dose: 100 mls/hr Documented by: [id number] Piperacillin Sod/Tazobactam Sod (Zosyn) 4.5 gm in 120 mls @ 240 mls/hr IV NOW ONE Stop: 08/06/18 16:44 Last Infusion: 08/06/18 17:28 Dose: 0 mls/hr Documented by: [id number] Admin: 08/06/18 16:38 Dose: 240 mls/hr Documented by: [id number] Vancomycin HCl 1,500 mg/ (Sodium Chloride) 530 mls @ 200 mls/hr IV NOW ONE; Protocol Stop: 08/06/18 18:53 Last Infusion: 08/06/18 22:04 Dose: 0 mls/hr Documented by: [id number] Admin: 08/06/18 18:49 Dose: 200 mls/hr Documented by: [id number] Vancomycin HCl 1,000 mg/ (Sodium Chloride) 270 mls @ 125 mls/hr IV Q10H [facility] Stop: 08/13/18 03:59 Last Infusion: 08/07/18 06:12 Dose: 0 mls/hr Documented by: [id number] Admin: 08/07/18 04:02 Dose: 125 mls/hr Documented by: [id number] Lidocaine/Epinephrine (Buffered Xylocaine/Epinephrine 1%) Confirm Administered Dose 20 ml .ROUTE .[facility]-MED ONE Stop: 08/06/18 16:40 Last Admin: 08/06/18 17:29 Dose: 20 ml Documented by: [id number] Lorazepam (Ativan) Confirm Administered Dose 2 mg .ROUTE .[facility]-MED ONE Stop: 08/06/18 16:56 Last Admin: 08/06/18 17:29 Dose: 1 mg Documented by: [id number] Methylprednisolone (Solumedrol) 125 mg IV NOW STA Stop: 08/06/18 15:18 Last Admin: 08/06/18 15:25 Dose: 125 mg Documented by: [id number] Oxycodone HCl (Roxicodone Immediate Rel) Confirm Administered Dose 5 mg .ROUTE .ST[facility]-MED ONE Stop: 08/06/18 19:09 Last Admin: 08/06/18 19:09 Dose: 5 mg Documented by: [id number] Medical Decision Making Medical Records Attestation: I reviewed the patient's medical records. Home Medications Current Medication List: was personally reviewed by me Laboratory Data Attestation: I reviewed the patient's lab results. Result diagrams: 08/07/18 03:09 08/07/18 03:09 Lab Results 08/06/18 08/06/18 08/06/18 Range/Units 15:15 15:15 15:15 WBC 28.16 H (4.8-10.8) K/uL RBC 4.55 L (4.7-6.1) M/uL Hgb 14.6 (14.0-18.0) g/dL Hct 43.3 (42-52) % MCV 95.2 (80-100) fL MCH 32.1 (25-34) pg MCHC 33.7 (32-36) g/dL RDW Std Deviation 45.6 (36.4-46.3) fL RDW Coeff of Renato 13.1 (11.5-14.5) % Plt Count 301 (130-400) K/uL MPV 9.9 (7.4-10.4) fL Immature Gran % (Auto) 1.3 % Neut % (Auto) 88.8 % Lymph % (Auto) 3.7 % Gaston % (Auto) 6.0 % Eos % (Auto) 0.1 % Baso % (Auto) 0.1 % Immature Gran # (Auto) 0.36 H (0.00-0.02) K/uL Neut # (Auto) 25.03 H (1.4-6.5) K/uL Lymph # (Auto) 1.03 L (1.2-3.4) K/uL Gaston # (Auto) 1.69 H (0.11-0.59) K/uL Eos # (Auto) 0.02 (0-0.5) K/uL Baso # (Auto) 0.03 (0-0.2) K/uL PT 9.5 (9.0-12.0) Seconds INR 0.9 (0.9-1.1) APTT < 20.0 L (21.0-31.0) Seconds PTT Ratio 0.7 VBG pH (7.36-7.41) VBG pCO2 (38-50) mmHg VBG pO2 mmHg VBG HCO3 mmol/L VBG O2 Saturation % VBG Base Excess mEq/L Barometric Pressure mm/Hg Sodium 135 L (136-145) mmol/L Potassium 4.5 (3.5-5.1) mmol/L Chloride 97 L (98-107) mmol/L Carbon Dioxide 40 H (21-32) mmol/L Anion Gap -2.0 L (3-11) BUN 10 (7-18) mg/dl Creatinine 0.66 (0.6-1.4) mg/dl Est Cr Clr Drug Dosing 98.7 ml/min Est GFR ( Amer) 123.5 Est GFR (Non-Af Amer) 106.6 BUN/Creatinine Ratio 15.7 (10-20) Glucose 110 H (70-99) mg/dl Calcium 8.9 (8.5-10.1) mg/dl Total Bilirubin 0.4 (0.2-1) mg/dl AST 16 (15-37) U/L ALT 28 (12-78) U/L Alkaline Phosphatase 69 (45-117) U/L Troponin I 0.026 (0-0.045) ng/ml Total Protein 6.5 (6.4-8.2) gm/dl Albumin 3.5 (3.4-5.0) gm/dl Globulin 3.0 (2.5-4.0) gm/dl Albumin/Globulin Ratio 1.2 (0.9-2) 08/06/18 Range/Units 15:50 WBC (4.8-10.8) K/uL RBC (4.7-6.1) M/uL Hgb (14.0-18.0) g/dL Hct (42-52) % MCV (80-100) fL MCH (25-34) pg MCHC (32-36) g/dL RDW Std Deviation (36.4-46.3) fL RDW Coeff of Renato (11.5-14.5) % Plt Count (130-400) K/uL MPV (7.4-10.4) fL Immature Gran % (Auto) % Neut % (Auto) % Lymph % (Auto) % Gaston % (Auto) % Eos % (Auto) % Baso % (Auto) % Immature Gran # (Auto) (0.00-0.02) K/uL Neut # (Auto) (1.4-6.5) K/uL Lymph # (Auto) (1.2-3.4) K/uL Gaston # (Auto) (0.11-0.59) K/uL Eos # (Auto) (0-0.5) K/uL Baso # (Auto) (0-0.2) K/uL PT (9.0-12.0) Seconds INR (0.9-1.1) APTT (21.0-31.0) Seconds PTT Ratio VBG pH 7.30 L (7.36-7.41) VBG pCO2 75 H (38-50) mmHg VBG pO2 59 mmHg VBG HCO3 36 mmol/L VBG O2 Saturation 89.5 % VBG Base Excess 6.5 mEq/L Barometric Pressure 735.2 mm/Hg Sodium (136-145) mmol/L Potassium (3.5-5.1) mmol/L Chloride (98-107) mmol/L Carbon Dioxide (21-32) mmol/L Anion Gap (3-11) BUN (7-18) mg/dl Creatinine (0.6-1.4) mg/dl Est Cr Clr Drug Dosing ml/min Est GFR ( Amer) Est GFR (Non-Af Amer) BUN/Creatinine Ratio (10-20) Glucose (70-99) mg/dl Calcium (8.5-10.1) mg/dl Total Bilirubin (0.2-1) mg/dl AST (15-37) U/L ALT (12-78) U/L Alkaline Phosphatase (45-117) U/L Troponin I (0-0.045) ng/ml Total Protein (6.4-8.2) gm/dl Albumin (3.4-5.0) gm/dl Globulin (2.5-4.0) gm/dl Albumin/Globulin Ratio (0.9-2) Imaging Data Radiologist's Impression: Radiology results as stated below per my review and the radiologist's interpretation: XR chest 1V portable CLINICAL HISTORY: 58 years-old Male presenting with Dyspnea. TECHNIQUE: Portable upright AP view of the chest was obtained. COMPARISON: 07/30/2018. FINDINGS: Lungs are hyperinflated. Moderate to large left pneumothorax. There is a pleural separation of nearly 4 cm at the apex and a significant basilar component. No significant rightward mediastinal shift at this time. No focal opacity in the underlying lungs. No pleural effusion. Osseous structures normal. Upper abdomen normal. IMPRESSION: 1. Moderate to large left pneumothorax. No evidence of tension at this time. Decompression to be considered. The report will be called/faxed according to standard departmental protocol for a critical finding. Electronically signed by: Derrick Ramirez M.D. 08/06/2018 3:55 PM XR chest 1V portable CLINICAL HISTORY: 58 years-old Male presenting with s/p thoravent to L axillary for PNX. TECHNIQUE: Portable upright AP view of the chest was obtained. COMPARISON: 08/06/2018 at 3:38 PM. FINDINGS: Interval placement of a left pleural drain. Atherosclerosis of the aortic arch. Cardiac silhouette top normal in size. Improved aeration of the left lung with significant decrease in size of the left pneumothorax. A small basilar portion of the pneumothorax likely remains. Right lung and pleural space clear. Anchors noted in the left bony glenoid. IMPRESSION: 1. Significant decrease in size of the left pneumothorax with a small basilar portion remaining. 2. Left pleural drain in place. Electronically signed by: Derrick Ramirez M.D. 08/06/2018 5:23 PM Dictated: 08/06/18 172 Transcribed: 08/06/18 172 ECG Data Attestation: I personally reviewed and interpreted this ECG as follows: Indication: SOB/dyspnea Rate (beats per minute): 110 Rhythm: sinus tachycardia Findings: + other (Normal intervals, Right axis deviation, a lot of motion artifact noted. ) Blood Pressure Blood Pressure Findings: Elevated blood pressure Blood Pressure Disposition: further management by hospitalist NICOLAS Urrutia The patient is a 58 year old male w/ PMHx of COPD, BPH, and pulmonary nodule who presents to the ED w/ CC of constant shortness of breath that started this morning around 1000, 5 hours ago. Differential diagnoses includes but is not limited to pneumonia, bronchitis, COPD/Asthma exacerbation, pneumothorax, pulmonary embolism, congestive heart failure, acute coronary syndrome Impression & Plan Pneumothorax, COPD exacerbation, Respiratory failure with hypoxia Critical Care Time Critical Care Time: Yes Total Critical Care Time: 95 I have personally spent greater than 95 minutes of critical care time in direct management of this patient. This includes bedside care, interpretation of diagnostic studies, and testing, discussion with consultants, patient, and family members, and other require inpatient management activities. This 95 minutes is in excess of all separately billable procedures. Discharge Plan Visit Data *Final* Discharge Date/Time: 08/06/18 18:23 Chief Complaint: Shortness of Breath/Dyspnea Stated Complaint: sob ED Provider: Harvey Forman Discharge Problem: Pneumothorax, COPD exacerbation, Respiratory failure with hypoxia Patient Disposition: Admitted As Inpatient Discharge Instructions Interventions: ED Discharge Assessment Last Done: 08/06/18 18:23 The scribe's documentation has been prepared under my direction and personally reviewed by me in its entirety. I confirm that the note above accurately reflects all work, treatment, procedures, and medical decision making performed by me.
[2018-08-08] MEDS: ALBUTEROL HFA 8 GM INHALER INH PRN (00:20)
[2018-08-08] MEDS: OXYCODONE HCL IR 5 MG TAB (IMMEDIATE RELEASE) PO PRN (00:20)
[2018-08-08 06:27] LABS: Hematocrit (blood only) 36.2 % (42-52); Hemoglobin 11.7 g/dL (14.0-18.0); Mean Corpuscular Hgb Conc 32.3 g/dL (32-36); Mean Platelet Volume 10.2 fL (7.4-10.4); Platelet Count 232 K/uL (130-400); RDW Coefficient of Variation 13.2 % (11.5-14.5); RDW Standard Deviation 46.1 fL (36.4-46.3); Red Blood Count 3.77 M/uL (4.7-6.1); White Blood Count 12.26 K/uL (4.8-10.8)
[2018-08-08 06:54] LABS: BUN Creatinine Ratio 13.3 (10-20); Calcium 8.6 mg/dl (8.5-10.1); Creatinine Clr Calc Pharmacy 106.8 ml/min; Est GFR (African American) 125.1; Est GFR (Non-African American) 107.9; Potassium 4.3 mmol/L (3.5-5.1)
--- NOTE | 2018-08-08 08:28 | XRay Report ---
XR chest 1V portable CLINICAL HISTORY: 58 years-old Male presenting with pneumothorax. TECHNIQUE: Portable upright AP view of the chest was obtained. COMPARISON: 08/07/2018. FINDINGS: Atherosclerosis of the aortic arch. Cardiac silhouette top normal in size. Extensive left retrocardia c opacity likely correlates with left lower lobe collapse. No radiographic evidence of a residual lef t pneumothorax with the left pleural drain remaining in place. No large effusion. Overall hyperinflat ion of the right lung and aerated portion of the left lung. Degenerative changes of the thoracic spin e. Upper abdomen normal. IMPRESSION: 1. No radiographic evidence of a residual pneumothorax with the left pleural drain remaining in plac e. 2. Persistent left lower lobe collapse. 3. Hyperinflation likely indicates underlying emphysema. Electronically signed by: Derrick Ramirez M.D. 08/08/2018 8:27 AM
[2018-08-08] MEDS: HEPARIN SOD 5,000 UNIT/0.5 ML VIAL SQ SCH ×2 (08:53→20:36)
[2018-08-08] MEDS: FLUTICASONE/SALMETEROL 250/50 (ADVAIR) 14 PUFF/1 INHALER INH SCH ×2 (08:53→20:37)
[2018-08-08] MEDS: TAMSULOSIN HCL 0.4 MG CAP PO SCH (08:53)
[2018-08-08] MEDS: predniSONE 20 MG TAB PO SCH ×2 (08:54→20:38)
[2018-08-08] MEDS: TIOTROPIUM BROMIDE 5 PUFF/90 MCG INH INH SCH (08:54)
--- NOTE | 2018-08-08 09:10 | Progress Note ---
DATE: 08/08/[address] scan yesterday showed complete atelectasis of his left lower lobe. He may have stenosis or near occlusion of his left lower lobe bronchus. I feel we should take the patient to the operating room and do a left thoracoscopy with a resection of the large bleb of his left lower lobe superior segment. We can also a bronchoscopy while we are there. We had a long talk about this and he is agreeable. He states " I can't stay like this." We will set this up this afternoon.
[2018-08-08] MEDS ORDERED: VANCOMYCIN TROUGH ONE (09:30)
--- NOTE | 2018-08-08 12:15 | Hospitalist Progress Note ---
Date of Service August 08, 2018 Assessment & Plan (1) Acute on chronic respiratory failure with hypoxia and hypercapnia: - Related to L PTX in the setting of bleb from underlying COPD - Baseline 2 L NC at home use Present on Admission?: Yes (2) Pneumothorax: - S/P Thoravent placement in ED - CT with continued evidence of L PTX with complete collapse of the LLL - Maintain pain management - CT Surg following - planning of surgical intervention this afternoon Present on Admission?: Yes (3) COPD (chronic obstructive pulmonary disease): - Recent admission for COPD exacerbation; completed Rocephin/Zithro - Currently on Prednisone 40 mg in AM and 20 mg in PM - starting on 08/09 will begin further taper of 20 mg BID x 2 days then 10 mg BID x 2 days then back to baseline 10 mg daily as he has been chronically on this dose since approx. April -- Does have leukocytosis which is likely steroid induced - no signs of infection at current time - Very minimal wheeze today and does not appear to be largely exacerbated at this time - Continue nebs PRN; Advair and Spiriva Present on Admission?: Yes (4) BPH (benign prostatic hyperplasia): - Continue Flomax 0.4 mg daily Present on Admission?: Yes (5) Pulmonary nodule: - CT in Dec 2017 with nodule of JADE -- repeat CT chest did not identify previously noted nodule. Present on Admission?: Yes (6) DVT prophylaxis: - SCDs; Heparin Dispo: Surgical intervention today, anticipate few days in-hospital needs Subjective Reports that his breathing is slightly improved but not near his baseline. However states he is normally on 2 L at baseline. Still with CLAY. Denies chest pain at this time and tolerating thoravent. Planning on surgical intervention this afternoon. Review of Systems Constitutional: + weakness; no fever and no chills Respiratory: + dyspnea and + dyspnea on exertion; no cough Cardiovascular: no chest pain, no palpitations and no edema Gastrointestinal: no abdominal pain, no nausea, no vomiting, no constipation and no diarrhea/loose stools Genitourinary: no dysuria Musculoskeletal: no joint pain and no body aches Integumentary: no rash Physical Exam Constitutional: WD/WN, vitals as above Eyes: + anicteric sclerae ENMT: Ears: no hearing impairment Neck: trachea midline; no tracheal deviation Respiratory: normal respiratory effort Auscultation: + diminished lung sounds and + wheezes (very minimal) Cardiovascular: RRR, no murmur, no edema Chest (Breasts): Additional Comments: L sided thoravent in anterior axillary line Gastrointestinal (Abdomen): Inspection/Auscultation: normal bowel sounds Percussion/Palpation: abdomen soft; abdomen nontender Musculoskeletal: Head/Neck/Chest: normocephalic, head atraumatic and neck supple Skin: no rashes, warm and dry Neurologic: moves all extremities Psychiatric: A+Ox3, euthymic affect Results & Data Vital Signs (Past 12 Hours) Vital Signs Temp Pulse Resp BP Pulse Ox 08/08/18 07:56 36.7 C 72 16 144/78 H 98 (1) BPH (benign prostatic hyperplasia) Lower urinary tract symptom presence: symptoms absent Qualified Code(s): N40.0 - Benign prostatic hyperplasia without lower urinary tract symptoms
--- NOTE | 2018-08-08 13:26 | Anesthesiology Consultation ---
Date of Service August 08, 2018 Assessment & Plan Chart Review Chart Review: Acceptable Risk for Surgery and Patient NOT seen in Pre Admission Testing Consults Requested none ASA ASA4 Proposed Anesthesia Anesthesia Type: General Anesthesia Line Insertion: Double lumen tube and Arterial line Risk / Benefits Reviewed With: PT / POA / Parent / Guardian, Accepts Plan and Informed Consent Obtained History Surgery Operation Date: 08/08/18 09:20 Proposed Procedures p Flexible Bronchoscopy, - Chandrakant Cortes MD, FACS s Left Thoracoscopy with Bleb Resection - Chandrakant Cortes MD, FACS Height/Weight Height: 5 ft 5 in Weight: 60 kg Allergies Allergy/AdvReac Type Severity Reaction Status Date / Time No Known Allergies Allergy Unverified 08/06/18 15:23 Medications Home Medications Medication Instructions Recorded Confirmed Last Taken albuterol sulfate 2 puff INHALATION Q4H PRN 01/08/18 08/06/18 07/24/18 fluticasone propion-salmeterol 1 puff INHALATION BID 01/08/18 08/06/18 07/24/18 tiotropium bromide 1 puff INHALATION DAILY 01/08/18 08/06/18 07/23/18 polyethylene glycol 3350 [Miralax] 17 g PO QAM #1 btl 01/21/18 08/06/18 Unknown tamsulosin [Flomax] 0.4 mg PO DAILY #30 cap 01/21/18 08/06/18 07/23/18 prednisone 10 mg PO DAILY 07/24/18 08/06/18 07/23/18 albuterol sulfate 2.5 mg INH Q4H #1 box 08/02/18 08/06/18 Unknown guaifenesin [Mucinex] 600 mg PO Q12 #60 tab 08/02/18 08/06/18 Unknown lorazepam 0.5 mg PO HS PRN #15 tab 08/02/18 08/06/18 Unknown Active Medications Generic Name Dose Route Start Last Admin Trade Name Freq PRN Reason Stop Dose Admin Acetaminophen 650 mg 08/06/18 18:47 08/07/18 18:46 Tylenol PO 09/05/18 18:46 650 mg Q4H PRN Administration Mild Pain Albuterol 2 puffs 08/06/18 18:47 08/08/18 00:20 Ventolin Hfa INH 09/05/18 18:46 2 puffs Q4H PRN Administration Shortness Of Breath Heparin Sodium (Porcine) 5,000 units 08/07/18 09:00 08/08/18 08:53 Heparin Sodium (Porcine) SQ 09/06/18 08:59 Not Given Q12 HOWARD Oxycodone HCl 5 mg 08/06/18 18:47 08/08/18 00:20 Roxicodone Immediate Rel PO 08/20/18 18:46 5 mg Q6H PRN Administration Moderate Pain Prednisone 20 mg 08/06/18 21:00 08/07/18 20:37 Prednisone PO 09/05/18 20:59 20 mg QPM HOWARD Administration Prednisone 40 mg 08/07/18 09:00 08/08/18 08:54 Prednisone PO 09/06/18 08:59 40 mg QAM HOWARD Administration Fluticasone/Salmeterol 1 puffs 08/06/18 21:00 08/08/18 08:53 Advair Diskus 250/50 INH 09/05/18 20:59 1 puffs BID HOWARD Administration Tamsulosin HCl 0.4 mg 08/07/18 09:00 08/08/18 08:53 Flomax PO 09/06/18 08:59 0.4 mg DAILY HOWARD Administration Tiotropium [place] 1 puffs 08/07/18 09:00 08/08/18 08:54 Spiriva INH 09/06/18 08:59 1 puffs DAILY HOWARD Administration NPO Date Last Intake of Fluids: 08/08/18 Time Last Intake of Fluids: 08:56 Last Intake of Fluids Comment: patient made npo at this time Date Last Intake of Solids: 08/08/18 Time Last Intake of Solids: 00:20 Past Medical History Medical History Steroid-dependent COPD (Chronic) Chronic respiratory failure (Chronic) COPD exacerbation (Acute) Pulmonary nodule (Chronic) Tobacco abuse Exercise / Class Metabolic Activity III < 4 Walking/Shop/Light housework Past Family History Family History Father Family history non-contributory Past Surgical History Surgical History No pertinent past surgical history Past Anesthesia History No Hx of Anesthesia Complications and No Family Hx of Anesthesia Complications History of PONV No Hx of PONV and No Hx of Motion Sickness Social History Smoking Status: Former smoker tobacco type: cigarettes Smoking cigarettes per day: 20 Do You Dip or Chew Tobacco: No Smoking End Date: 12/2017 Hx Alcohol Use: Yes Alcohol type: beer alcohol intake frequency: a few times a month Hx Substance Use: No substance use type: does not use Physical Exam Vital Signs Last Vital Signs Temp 36.7 C 08/08/18 07:56 Pulse 72 08/08/18 07:56 Resp 16 08/08/18 07:56 BP 144/78 H 08/08/18 07:56 Pulse Ox 98 08/08/18 07:56 Constitutional + cachectic ENMT Mouth: + poor dentition Thyromental Distance: > or= 3.5 Finger Breadths Mallampati Class: II Neck normal visual inspection, trachea midline and + facial hair; neck extension not limited Respiratory + uses accessory muscles Auscultation: + breath sounds absent (left lower chest) and + diminished lung sounds Cardiovascular Rate/Rhythm: regular rate and regular rhythm Heart Sounds: no murmur Vessels: no carotid bruit Musculoskeletal Spine: normal cervical ROM Neurologic moves all extremities Motor/Sensory: no sensory deficit Psychiatric Orientation: alert and oriented x 3 Testing Laboratory Results 08/08/18 05:44 08/08/18 05:44 08/06/18 15:15 Aerobic Blood Culture - Preliminary Blood No growth in Aerobic bottle after 24 hours. Anaerobic Blood Culture - Final 08/06/18 17:44 Aerobic Blood Culture - Preliminary Blood No growth in Aerobic bottle after 24 hours. Anaerobic Blood Culture - Preliminary No growth in Anaerobic bottle after 24 hours. Electrocardiogram Date: 08/06/18 Findings: + ST @ (at 110 w/short RI;RAD) Chest X-Ray Date: 08/08/18 Findings: + atherosclerosis of thoracic aorta and + other (persistentLLL collapse;no residual pneumothorax;emphysema) Stress Test Date: 06/15/17 Type: DSE Findings: + WNL and + did not achieved max HR (87% MPHR); no EKG changes, no CP and no ischemia Resting EF: 65%;Grade 2 DD;ASCVD aortic arch;increased RV systolic pressure;NL LV fxn Valvular Disease: no significant valvular disease
[2018-08-08] MEDS ORDERED: SODIUM CHLORIDE 0.9% PF 50 ML VIAL ONE (13:46)
[2018-08-08] MEDS ORDERED: BUPIVACAINE LIPOSOME 1.3% 266 MG/20 ML VIAL ONE (13:46)
[2018-08-08] MEDS ORDERED: BUPIVACAINE 0.5 % 5 MG/1 ML MPF 30ML VIAL ONE (13:46)
[2018-08-08] MEDS ORDERED: MIDAZOLAM HCL 1 MG/ML 2ML VIAL ONE (13:53)
[2018-08-08] MEDS ORDERED: fentaNYL citrate 100 MCG/2 ML VIAL ONE (13:53)
[2018-08-08] MEDS ORDERED: LIDOCAINE 2% JELLY 5 ML TUBE ONE (13:54)
[2018-08-08] MEDS ORDERED: CEFAZOLIN 2,000 MG/15 ML IV PUSH IV ONE (13:55)
[2018-08-08] MEDS ORDERED: CEFAZOLIN 1,000 MG/7.5 ML IV PUSH IV ONE (14:15)
[2018-08-08] MEDS ORDERED: CEFAZOLIN 1000MG 1,000 MG/7.5 ML SYR IV ONE (14:31)
[2018-08-08] MEDS ORDERED: GLYCOPYRROLATE 0.2 MG/ML VIAL ONE (15:38)
[2018-08-08] MEDS ORDERED: LIDOCAINE HCL 2% 2 ML VIAL/AMP(20MG/ML) INFIL ONE (15:38)
[2018-08-08] MEDS ORDERED: PROPOFOL IV EMULSION 10 MG/ML 20 ML VIAL IV ONE (15:38)
[2018-08-08] MEDS ORDERED: ROCURONIUM BROMIDE 10 MG/ML 5 ML VIAL ONE (15:38)
[2018-08-08] MEDS ORDERED: PHENYLEPHRINE HCL 10 MG/ML VIAL ONE (15:38)
[2018-08-08] MEDS ORDERED: NEOSTIGMINE METHYLSULFATE 5 MG/5 ML SYR ONE (15:38)
[2018-08-08] MEDS ORDERED: DEXAMETHASONE SOD INJ 4 MG/ML VIAL ONE (15:38)
[2018-08-08] MEDS ORDERED: ONDANSETRON INJ 2 MG/ML 2 ML VIAL ONE (15:38)
--- NOTE | 2018-08-08 15:43 | Post Operative Brief Note ---
Immediate Post Op Note v1 Date of Surgery August 08, 2018 Pre & Post Diagnosis Operation Date: 08/08/18 09:20 Pre-Op Diagnosis: LEFT PNEUMOTHORAX BLEB SUPERIOR SEGMENT LLL Post-Op Diagnosis: LEFT PNEUMOTHORAX bLEB SUPERIOR SEGMENT LLL Procedure Operation Date: 08/08/18 09:20 Actual Procedures p Flexible Bronchoscopy, - Chandrakant Cortes MD, FACS s Left Thoracoscopy with Bleb Resection(Left lower lobe) - Chandrakant Cortes MD, FACS Surgeon Chandrakant Cortes MD, FACS Board Setter Michell BARRAZA, Yasemin BARRAZA Estimated Blood Loss 5 Findings Consistent with Post-Op Diagnosis Drains Chest Tube
[2018-08-08] MEDS ORDERED: ATROPINE SULFATE 0.1 MG/ML 10ML SYR IV PRN (16:11)
[2018-08-08] MEDS ORDERED: ePHEDrine sulfate 50 MG/ML AMP IV PRN (16:11)
--- NOTE | 2018-08-08 16:16 | XRay Report ---
XR chest 1V portable HISTORY: 58 years-old Male bleb resection status post bleb resection of the left lung COMPARISON: Chest radiograph 08/08/2018 at 8:19 AM TECHNIQUE: Portable AP view of the chest FINDINGS: Cardiac mediastinal and hilar silhouettes are within normal limits. The right lung is clear. Left-arvin ed chest tube terminates adjacent to the left lung apex. Postoperative changes of the left lung apex are noted. Tiny left apical pneumothorax with pleural separation of 2 mm. Trace left pleural effusion . Moderate subcutaneous emphysema about the left neck, supraclavicular region and lateral left chest wall. Postoperative changes of the left glenoid. Mild left lung base atelectasis. IMPRESSION: 1. Postoperative changes of the left lung apex. 2. Trace left pneumothorax with satisfactory positioning of the left chest tube. The above report was generated using voice recognition software. It may contain grammatical, syntax o r spelling errors. Electronically signed by: Daniel Hayes M.D. 08/08/2018 4:15 PM
[2018-08-08 17:16] LABS: HCO3 ABG 34 mmol/L (19-24); Oxygen Saturation ABG 88.8 % (90-95); PCO2 ABG 76 mmHg (35-46); PO2 ABG 61 mm/Hg (80-95); pH ABG 7.27 (7.35-7.45)
[2018-08-08 17:30] LABS: Allen Test Pos (Pos)
[2018-08-08] MEDS ORDERED: ICU PROTOCOL FOR HYPERGLYCEMIA PRN (18:05)
--- NOTE | 2018-08-08 18:05 | Anesthesiology Progress Note ---
Date of Service August 08, 2018 Anesthesia Post Procedure Vital Signs Vital Signs: Temp Pulse Pulse Pulse Pulse Resp BP 08/08/18 17:50 87 20 133/67 08/08/18 17:35 90 16 138/74 08/08/18 17:20 84 17 137/72 08/08/18 17:10 85 12 130/86 08/08/18 17:00 36.4 C L 83 19 132/77 08/08/18 16:50 85 22 122/75 08/08/18 16:40 82 20 144/69 H 08/08/18 16:30 88 20 139/78 08/08/18 16:20 91 H 90 20 143/72 H 08/08/18 16:10 88 2 L 151/79 H 08/08/18 16:02 35.9 C L 95 H 2 L 139/86 08/08/18 13:37 36.4 C L 90 18 116/88 08/08/18 07:56 36.7 C 72 16 144/78 H 08/07/18 22:40 37.1 C 83 18 129/76 08/07/18 20:45 85 16 145/69 H Pulse Ox 08/08/18 17:50 95 08/08/18 17:35 94 08/08/18 17:20 96 08/08/18 17:10 95 08/08/18 17:00 93 08/08/18 16:50 92 08/08/18 16:40 94 08/08/18 16:30 97 08/08/18 16:20 100 08/08/18 16:10 100 08/08/18 16:02 100 08/08/18 13:37 95 08/08/18 07:56 98 08/07/18 22:40 98 08/07/18 20:45 96 Pain Intensity Left Chest: Pain Intensity: 2 Notes Mental Status: alert / awake / arousable and participated in evaluation Patient Amnestic to Procedure: Yes Nausea / Vomiting: adequately controlled Pain: adequately controlled Airway Patency, RR, SpO2: see Notes below BP & HR: stable & adequate Hydration State: stable & adequate Anesthetic Complications: no major complications apparent Notes: Patient has severe COPD/emphysema.Pt is s/p bronchoscopy and left VATS for LLL bullectomy/Lobectomy after having a spontaneous pneumothorax. Anesthetic and procedure were uneventful. Pt. was subsequently extubated in OR.In PACU ,pt was hypoventilating and difficult to arouse He was placed on bipap and respirations and mentation improved. I had an ABG drawn w/ results of: PH 7.27/PaCO2-76/PaO2-61/HCO3-34/BE-+ 5.2/O2 Sat 88.8% on 3l/m NC.I have discussed this case w/ Dr Irvin Cantor and he is in agreement that the pt. should be transferred to ICU,hence, my consulting him.
[2018-08-08] MEDS ORDERED: MoRPHine SULFATE 2 MG/ML CARP IV PRN (18:51)
[2018-08-08] MEDS: D5W AND 1/2NSS 1,000 ML IV SCH (19:35)
[2018-08-08] MEDS: DOCUSATE SODIUM 100 MG CAP PO SCH (20:37)
[2018-08-08] MEDS: METOCLOPRAMIDE HCL INJ 5 MG/ML 2 ML VIAL IV SCH (20:37)
[2018-08-08] MEDS: ACETAMINOPHEN 1,000 MG/100 ML VIAL IV SCH (20:38)
--- NOTE | 2018-08-08 22:26 | Operative Report ---
DATE OF OPERATION: 08/08/2018 PREOPERATIVE DIAGNOSES: 1. Spontaneous left pneumothorax. 2. Large bleb superior segment left lower lobe. 3. Atelectasis, left lower lobe. POSTOPERATIVE DIAGNOSES: 1. Spontaneous left pneumothorax. 2. Large bleb superior segment left lower lobe. 3. Atelectasis, left lower lobe. PROCEDURE: 1. Fiberoptic bronchoscopy. 2. Left thoracoscopy with resection of bleb from superior segment left lower lobe. SURGEON: Chandrakant Cortes MD TELEPHONE ADVICE NURSE: Aniket BARRAZA and Yasemin BARRAZA ANESTHESIA: General anesthesia with single lumen intubation. INDICATION FOR PROCEDURE AND FINDINGS: Edwin Vazquez is a 58-year-old male that I know of. I operated on his mother last year and did a lobectomy for carcinoma of the lung. I have met him in the office and at the bedside. The patient is a heavy cigarette smoker although he did quit smoking 6 months ago. He is on steroids and oxygen. The patient was in his usual state of health, although he states he has been coughing a bit more and developed acute shortness of breath and left-sided chest pain and was found to have a large pneumothorax. A small Thora-Vent was placed and this resulted in resolution; however, he never opened up his left lower lobe. We did a CT scan and saw he had complete collapse of left lower lobe. Six months ago, he underwent a CT scan which showed a large isolated bleb in the superior segment left lower lobe. After reviewing his CT scan and a long discussion with the patient I felt the best thing to do would be to proceed with a left thoracoscopy and a bronchoscopy. On 08/08/2018, the patient underwent an uncomplicated bronchoscopy. He had a large amount of sputum but it was thick, but relatively light colored. I suctioned out his left lower lobe in particular and saw no endobronchial lesions. In fact, I closely inspected all of his airways and saw no endobronchial lesions. The patient was then turned in on his side. Upon going in, it could be seen that he did indeed have ruptured the large bleb in the superior segment of lower lobe. We did a generous wedge resection. This lung did not look good. It had a hemorrhagic appearance. He had no air leak at the conclusion of the case. Her lung expanded nicely. DESCRIPTION OF PROCEDURE: The patient was brought to Operating Room and laid in supine position, general anesthesia induced and general endotracheal intubation was performed. The fiberoptic bronchoscope was then placed through an adapter after appropriate timeout had been called and prophylactic antibiotics given. Upon entering the airway it could be seen there was a small amount of whitish sputum in the right upper lobe orifice and in the bronchus intermedius, but this was a scant amount and was easily suction clear. Upon going into the left lower lobe; however, there was a greater amount in the left upper lobe bronchus, which was suctioned out, but the left lower lobe bronchus was completely filled with this very thick and inspissated sputum. I went in initially with a small scope and had to switch out to a therapeutic scope and then aggressively suctioned and lavaged this until it was completely clear. I saw no endobronchial lesions. I then slowly withdrew the bronchoscope and saw no other evidence of bleeding or endobronchial lesions. The endotracheal tube was in the correct position. I then withdrew the bronchoscope. The patient was turned into the right lateral decubitus position. The left chest prepped and draped in usual sterile fashion. I removed the Thora-Vent and then watched his chest and prepped it. After appropriate timeout had been called, I placed a 5 mm trocar through this thoracoscopy port. Upon placing the scope, it could be seen there were no adhesions which did not surprise me as the patient had complete collapse of his lung before having in the Thora-Vent placed. I then placed another 5 mm port posterior to the scapula. We then could see quite nicely and I put a 12 mm port just anterior to the mid axillary line couple of interspaces above the diaphragm. We were then able to inspect the lung closely and saw no blebs at all on the upper lobe including the lingula and superior segment. Upon going to the lower lobe there was a hemorrhagic issue with this. We did insufflate CO2 and it did collapse the lung nicely even on one lung ventilation as we were at low volumes. We could see that there was air leaking from this area. Grabbing an Endo-INEZ I then removed a sizable segment to remove all of the hemorrhagic area. We delivered this off the field in an Endobag. I closely inspected the staple line and the lung expanded nicely and he had no evidence of an air leak. It should be noted that we performed a block prior to the case starting; 266 mg of Exparel mixed with 250 mL of normal saline, and 30 mL of 0.5% bupivacaine. He was injected into each of the port sites before making an incision. We then injected it into the interspaces from the 2nd through 11th interspace under thoracoscopic guidance and filled the interspace completely. After we had removed the superior segment of the left lower lobe through an Endobag and saw there was no significant air leak a 24-[place] chest tube was placed through the 12 mm port directed towards the apex. It held in place with heavy silk suture. A 4-0 Monocryl was used in running subcuticular fashion to approximate the wound edges of all the incisions. He tolerated it quite well with no air leak; however, he had very poor lungs and was on a BiPAP upon his transfer to the Postanesthesia Care Unit. I attest to the content of the Intraoperative Record and any orders documented therein. Any exceptions are noted below. MANINDER
[2018-08-09] MEDS: ACETAMINOPHEN 1,000 MG/100 ML VIAL IV SCH (03:35)
[2018-08-09] MEDS: METOCLOPRAMIDE HCL INJ 5 MG/ML 2 ML VIAL IV SCH ×2 (03:35→12:01)
[2018-08-09] MEDS: D5W AND 1/2NSS 1,000 ML IV SCH (05:41)
--- NOTE | 2018-08-09 07:00 | XRay Report ---
XR chest 1V portable HISTORY: 58 years-old Male bleb stapling follow-up study in a patient with prior left lung surgery COMPARISON: Chest radiograph 08/08/2018 TECHNIQUE: Portable AP view of the chest FINDINGS: Cardiac mediastinal and hilar silhouettes are within normal limits. Right lung is clear. Decreased enriquez bcutaneous emphysema about the left chest wall. Stable positioning of the left-sided chest tube, dist al tip terminating adjacent to the left lung apex. The previously described tiny left pneumothorax is not definitively seen. Postoperative changes of the left lung. Probable trace bilateral pleural effu sions. IMPRESSION: 1. Postoperative changes of the left lung with stable positioning of the left chest tube. The previou sly noted tiny left pneumothorax is not identified on today's study. 2. Probable trace bilateral pleural effusions. The above report was generated using voice recognition software. It may contain grammatical, syntax o r spelling errors. Electronically signed by: Daniel Hayes M.D. 08/09/2018 6:58 AM
--- NOTE | 2018-08-09 07:51 | Anesthesiology Progress Note ---
Date of Service August 09, 2018 Anesthesia Post Procedure Vital Signs Vital Signs: Temp Pulse Pulse Pulse Resp BP BP 08/09/18 04:01 36.6 C 76 22 129/71 08/09/18 03:35 81 21 134/86 08/09/18 02:01 82 16 142/87 H 08/09/18 01:20 87 21 133/80 08/09/18 00:00 36.8 C 65 15 117/78 08/08/18 23:00 75 20 120/70 08/08/18 22:00 75 19 120/74 08/08/18 21:00 94 H 22 124/79 08/08/18 20:00 36.8 C 90 21 102/64 08/08/18 19:10 94 H 18 08/08/18 19:05 85 20 08/08/18 19:00 83 17 109/73 08/08/18 18:57 86 17 08/08/18 18:42 36.6 C 87 23 127/69 08/08/18 18:20 84 18 131/64 08/08/18 18:05 83 22 124/68 08/08/18 17:50 87 20 133/67 08/08/18 17:35 90 16 138/74 08/08/18 17:20 84 17 137/72 08/08/18 17:10 85 12 130/86 08/08/18 17:00 36.4 C L 83 19 132/77 08/08/18 16:50 85 22 122/75 08/08/18 16:40 82 20 144/69 H 08/08/18 16:30 88 20 139/78 08/08/18 16:20 91 H 90 20 143/72 H 08/08/18 16:10 88 2 L 151/79 H 08/08/18 16:02 35.9 C L 95 H 2 L 139/86 08/08/18 13:37 36.4 C L 90 18 116/88 08/08/18 07:56 36.7 C 72 16 144/78 H Pulse Ox 08/09/18 04:01 100 08/09/18 03:35 98 08/09/18 02:01 96 08/09/18 01:20 98 08/09/18 00:00 99 08/08/18 23:00 98 08/08/18 22:00 98 08/08/18 21:00 98 08/08/18 20:00 97 08/08/18 19:10 98 08/08/18 19:05 98 08/08/18 19:00 97 08/08/18 18:57 96 08/08/18 18:42 96 08/08/18 18:20 96 08/08/18 18:05 95 08/08/18 17:50 95 08/08/18 17:35 94 08/08/18 17:20 96 08/08/18 17:10 95 08/08/18 17:00 93 08/08/18 16:50 92 08/08/18 16:40 94 08/08/18 16:30 97 08/08/18 16:20 100 08/08/18 16:10 100 08/08/18 16:02 100 08/08/18 13:37 95 08/08/18 07:56 98 Pain Intensity Left Chest: Pain Intensity: 5 Notes Mental Status: alert / awake / arousable and participated in evaluation Patient Amnestic to Procedure: Yes Nausea / Vomiting: adequately controlled Pain: adequately controlled Airway Patency, RR, SpO2: stable & adequate BP & HR: stable & adequate Hydration State: stable & adequate Anesthetic Complications: no major complications apparent and Pt Satisfied with anesthetic care
[2018-08-09] MEDS: FLUTICASONE/SALMETEROL 250/50 (ADVAIR) 14 PUFF/1 INHALER INH SCH ×2 (08:22→20:05)
[2018-08-09] MEDS: DOCUSATE SODIUM 100 MG CAP PO SCH ×2 (08:22→20:04)
[2018-08-09] MEDS: TAMSULOSIN HCL 0.4 MG CAP PO SCH (08:24)
[2018-08-09] MEDS: predniSONE 20 MG TAB PO SCH ×2 (08:25→20:04)
[2018-08-09] MEDS: TIOTROPIUM BROMIDE 5 PUFF/90 MCG INH INH SCH (08:25)
[2018-08-09] MEDS: HEPARIN SOD 5,000 UNIT/0.5 ML VIAL SQ SCH ×2 (08:25→20:10)
--- NOTE | 2018-08-09 08:53 | Hospitalist Progress Note ---
Date of Service August 09, 2018 Assessment & Plan (1) Acute on chronic respiratory failure with hypoxia and hypercapnia: - Related to L PTX in the setting of bleb from underlying COPD - Baseline 2 L NC at home use - Post-operatively did have some difficulty weaning due to underlying poor lungs and was initially placed in ICU on 08/08 but has successfully weaned to baseline O2 (2) Pneumothorax: - S/P Thoravent placement in ED and now S/P chest tube placement; S/P L thorascopy with bleb resection of LLL and flex bronchoscopy -- CT with evidence of L PTX with complete collapse of the LLL prior to surgical intervention - Maintain pain management - CT Surg following - appreciate surgical management (3) COPD (chronic obstructive pulmonary disease): - Recent admission for COPD exacerbation; completed Rocephin/Zithro - Finishing steroid taper from previous admission - will further taper of 20 mg BID x 2 days then 10 mg BID x 2 days then back to baseline 10 mg daily as he has been chronically on this dose since approx. April and pending lung assessment may be able to wean sooner -- Does have leukocytosis which is likely steroid induced - no signs of infection at current time - Continue nebs PRN; Advair and Spiriva (4) BPH (benign prostatic hyperplasia): - Continue Flomax 0.4 mg daily (5) Pulmonary nodule: - CT in Dec 2017 with nodule of JADE -- repeat CT chest did not identify previously noted nodule. (6) DVT prophylaxis: - SCDs; Heparin Dispo: Pending clinical improvement and chest tube management; anticipate return home Subjective Reports feeling okay but had poor sleep overnight. Reports pain is doing okay with chest tube placement. Ambulated the hallways this morning. Bronchial washings are pending. Tolerating diet without issue. No other complaints Review of Systems Constitutional: + fatigue; no fever and no chills Respiratory: + dyspnea on exertion; no cough Cardiovascular: + edema (chronic LLE); no chest pain and no lightheadedness Gastrointestinal: no abdominal pain, no nausea, no vomiting, no constipation and no diarrhea/loose stools Genitourinary: no dysuria Integumentary: no rash Physical Exam Constitutional: WD/WN, vitals as above Eyes: + anicteric sclerae ENMT: Ears: no hearing impairment Neck: trachea midline Respiratory: normal respiratory effort Auscultation: + diminished lung sounds Cardiovascular: RRR, no murmur, no edema Chest (Breasts): Additional Comments: L sided chest tube placed Gastrointestinal (Abdomen): Inspection/Auscultation: normal bowel sounds Percussion/Palpation: abdomen soft; abdomen nontender Musculoskeletal: Head/Neck/Chest: normocephalic, head atraumatic and neck supple Skin: no rashes, warm and dry Neurologic: moves all extremities Psychiatric: A+Ox3, euthymic affect Results & Data Vital Signs (Past 12 Hours) Vital Signs Temp Pulse Resp BP Pulse Ox 08/09/18 04:01 36.6 C 76 22 129/71 100 08/09/18 03:35 81 21 134/86 98 08/09/18 02:01 82 16 142/87 H 96 08/09/18 01:20 87 21 133/80 98 08/09/18 00:00 36.8 C 65 15 117/78 99 08/08/18 23:00 75 20 120/70 98 08/08/18 22:00 75 19 120/74 98 08/08/18 21:00 94 H 22 124/79 98 (1) BPH (benign prostatic hyperplasia) Lower urinary tract symptom presence: symptoms absent Qualified Code(s): N40.0 - Benign prostatic hyperplasia without lower urinary tract symptoms
[2018-08-09] MEDS: ACETAMINOPHEN 325 MG TAB PO SCH ×3 (09:04→20:13)
[2018-08-09] MEDS: CALCIUM CARBONATE 500 MG CHEWABLE TAB PO PRN (10:15)
--- NOTE | 2018-08-09 16:15 | XRay Report ---
SINGLE VIEW CHEST CLINICAL HISTORY: Chest tube removal. FINDINGS: 2 AP, portable, upright chest radiographs are compared to study performed earlier the same day 08/09/2018 and correlated with chest CT dated 08/07/2018. The heart is top normal for projection, no ting atherosclerotic calcification of the thoracic aorta. Emphysema and chronic interstitial thickeni ng are similar to previous. A left apical chest tube has been removed from earlier today. No suture m aterial projects over the left midlung. No residual pneumothorax is identified. Pleural fluid and ate lectasis are seen at the left lung base. The right lung appears clear. The skeletal structures are os teopenic. The bony thorax is grossly intact. Postoperative change is noted in the left shoulder. Subc utaneous emphysema is seen along the left chest wall. IMPRESSION: 1. The left apical chest tube has been removed. No residual pneumothorax is clearly seen. 2. There is trace pleural fluid at the left lung base with left basilar atelectasis. 3. Emphysema. Electronically signed by: Hung Reynoso M.D. 08/09/2018 4:14 PM
--- NOTE | 2018-08-09 17:51 | Progress Note ---
DATE: 08/09/2018 The patient is seen today. We removed his chest tube this afternoon 1 day after we did a thoracoscopic bleb resection on the left. He looks very good. He feels better than he did preop. He does have some pain of course from the surgery yesterday, but has done very well. He had no air leak, very little drainage. I was pleased with his x-ray. Chest tube was removed and it actually looked quite good. I am quite pleased with his overall progress from this procedure and I am curious to see what his pathology shows.
[2018-08-10] MEDS: ACETAMINOPHEN 325 MG TAB PO SCH ×4 (04:20→22:09)
[2018-08-10 07:24] LABS: Mean Corpuscular Hgb Conc 33.3 g/dL (32-36); Mean Corpuscular Volume 96.2 fL (80-100); Mean Platelet Volume 9.8 fL (7.4-10.4); Platelet Count 202 K/uL (130-400); RDW Coefficient of Variation 13.4 % (11.5-14.5); RDW Standard Deviation 46.8 fL (36.4-46.3); Red Blood Count 3.43 M/uL (4.7-6.1); White Blood Count 12.21 K/uL (4.8-10.8)
[2018-08-10 08:00] LABS: BUN Creatinine Ratio 10.4 (10-20); Calcium 8.8 mg/dl (8.5-10.1); Creatinine Clr Calc Pharmacy 106.8 ml/min; Est GFR (African American) 125.1; Est GFR (Non-African American) 107.9; Potassium 3.8 mmol/L (3.5-5.1)
[2018-08-10] MEDS: FLUTICASONE/SALMETEROL 250/50 (ADVAIR) 14 PUFF/1 INHALER INH SCH ×2 (08:55→20:20)
[2018-08-10] MEDS: predniSONE 20 MG TAB PO SCH ×2 (08:56→20:23)
[2018-08-10] MEDS: DOCUSATE SODIUM 100 MG CAP PO SCH ×2 (08:56→20:21)
[2018-08-10] MEDS: TAMSULOSIN HCL 0.4 MG CAP PO SCH (08:56)
[2018-08-10] MEDS: TIOTROPIUM BROMIDE 5 PUFF/90 MCG INH INH SCH (08:56)
[2018-08-10] MEDS: HEPARIN SOD 5,000 UNIT/0.5 ML VIAL SQ SCH ×2 (08:58→22:08)
[2018-08-10] MEDS: CALCIUM CARBONATE 500 MG CHEWABLE TAB PO PRN (09:59)
--- NOTE | 2018-08-10 16:46 | Hospitalist Progress Note ---
Date of Service August 10, 2018 Assessment & Plan (1) Acute on chronic respiratory failure with hypoxia and hypercapnia: - Related to L PTX in the setting of bleb from underlying COPD - Baseline 2 L NC at home use - Post-operatively did have some difficulty weaning due to underlying poor lungs and was initially placed in ICU on 08/08 but has successfully weaned to baseline O2 (2) Pneumothorax: - S/P Thoravent placement in ED and now S/P chest tube placement and removal; S/P L thorascopy with bleb resection of LLL and flex bronchoscopy on 08/09 - Maintain pain management - Cx with few of aspergillus - discussed with pulm that this typically is co lonization in a rather stable individual - could send for IgE levels to assess for reactivity and typically this does not need treatment - can discuss with CT Surg - CT Surg following - appreciate surgical management (3) COPD (chronic obstructive pulmonary disease): - Recent admission for COPD exacerbation; completed Rocephin/Zithro - Finishing steroid taper from previous admission - will further taper of 20 mg BID x 2 days then 10 mg BID x 2 days then back to baseline 10 mg daily as he has been chronically on this dose since approx. April and pending lung assessment may be able to wean sooner -- Does have leukocytosis which is likely steroid induced - no signs of infection at current time - Continue nebs PRN; Advair and Spiriva (4) BPH (benign prostatic hyperplasia): - Continue Flomax 0.4 mg daily (5) Pulmonary nodule: - CT in Dec 2017 with nodule of JADE -- repeat CT chest did not identify previously noted nodule. (6) DVT prophylaxis: - SCDs; Heparin Dispo: Possible D/C home next 1-2 days Subjective Reports that he is doing well. Some mild discomfort at site of previous chest tube. Feels that breathing is much improved since coming in Trying to ambulate the halls to see how he is feeling. States he does feel better now that he has gotten some rest as well. On his baseline O2. Tolerating diet. Verbalizes no other complaints Review of Systems Constitutional: no fever and no chills Respiratory: + dyspnea on exertion; no cough, no dyspnea and no wheezing Cardiovascular: no chest pain and no lightheadedness Gastrointestinal: no abdominal pain, no nausea, no vomiting, no constipation and no diarrhea/loose stools Genitourinary: no dysuria Integumentary: no rash Physical Exam Constitutional: WD/WN, vitals as above Eyes: + anicteric sclerae ENMT: Ears: no hearing impairment Neck: trachea midline Respiratory: normal respiratory effort Auscultation: + diminished lung sounds Cardiovascular: RRR, no murmur, no edema Gastrointestinal (Abdomen): Inspection/Auscultation: normal bowel sounds Percussion/Palpation: abdomen soft; abdomen nontender Musculoskeletal: Head/Neck/Chest: normocephalic, head atraumatic and neck supple Skin: no rashes, warm and dry Neurologic: moves all extremities Psychiatric: A+Ox3, euthymic affect Results & Data Vital Signs (Past 12 Hours) Vital Signs Temp Pulse Pulse Resp BP Pulse Ox 08/10/18 15:11 36.2 C L 84 16 123/71 97 08/10/18 07:35 36.7 C 80 16 130/70 96 (1) BPH (benign prostatic hyperplasia) Lower urinary tract symptom presence: symptoms absent Qualified Code(s): N40.0 - Benign prostatic hyperplasia without lower urinary tract symptoms
--- NOTE | 2018-08-10 19:12 | Progress Note ---
DATE: 08/10/2018 HISTORY OF PRESENT ILLNESS: Mr. Vazquez is now 2 days status post a thoracoscopic wedge resection for a spontaneous pneumothorax. I am a bit concerned about the hemorrhagic appearance of the superior segment left lower lobe and while this was noted there was no evidence of malignancy or infection. He did have a large bleb which appeared to have ruptured. The patient feels better today, but he got his chest tube out yesterday. His x-ray looked fine after he pulled the tube. At this point, I think he is getting close to being ready for home. I was pleased that his pathology sample did not show anything worse.
[2018-08-11] MEDS: ACETAMINOPHEN 325 MG TAB PO SCH ×4 (04:45→21:52)
[2018-08-11] MEDS: DOCUSATE SODIUM 100 MG CAP PO SCH ×2 (07:23→21:41)
[2018-08-11] MEDS: FLUTICASONE/SALMETEROL 250/50 (ADVAIR) 14 PUFF/1 INHALER INH SCH ×2 (07:23→21:41)
[2018-08-11] MEDS: predniSONE 10 MG TABLET PO SCH ×2 (07:24→21:46)
[2018-08-11] MEDS: TIOTROPIUM BROMIDE 5 PUFF/90 MCG INH INH SCH (07:25)
[2018-08-11] MEDS: HEPARIN SOD 5,000 UNIT/0.5 ML VIAL SQ SCH ×2 (07:26→21:47)
[2018-08-11] MEDS: TAMSULOSIN HCL 0.4 MG CAP PO SCH (07:26)
[2018-08-11] MEDS: CALCIUM CARBONATE 500 MG CHEWABLE TAB PO PRN ×2 (08:49→21:41)
--- NOTE | 2018-08-11 12:27 | Surgery Progress Note ---
Date of Service August 11, 2018 Assessment & Plan (1) Pneumothorax: -pt. is s/p left VATS with bleb resection -path. did not show any malignancy -continue ambulation, coughing deep breathing (2) Atelectasis of left lung: -pt. is s/p FOB on 08/08/18 -cultures from LLL bronchial washing are notable fo Aspergillus -due to culture results will request ID opinion on whether this should be treated; primary service aware and they will place order for ID consult Subjective Pt. doing well. He has ambulated in hallway and is tolerating diet. No voiding difficulty. He notes less pain since chest tube removed. Physical Exam Constitutional: well developed and well nourished; no acute distress Respiratory: BS with only slight decrease at bases. No wheezing Musculoskeletal: No calf tenderness Results & Data Vital Signs (Past 12 Hours) Vital Signs Temp Pulse Resp BP Pulse Ox 08/11/18 07:22 36.3 C L 71 20 122/61 96 (1) Pneumothorax Pneumothorax type: spontaneous, primary Qualified Code(s): J93.11 - Primary spontaneous pneumothorax
--- NOTE | 2018-08-11 14:01 | Infectious Disease Consult ---
Date of Consultation August 11, 2018 Assessment & Plan (1) Pneumothorax: resolved, likely related to underlying emphysema. suspect aspergillus in sputum represents oral navjot and not true pathogen in the absence of symptoms. he is afebrile, clinically stable off of antimicrobials, no infiltrate noted on cxr/ct, no cough or hemoptysis to suggest invasive disease. would hold off on treatment with antifungals at this time. No new ID recs. (2) Atelectasis of left lung: (3) Leukocytosis: improving off of abx, suspect reactive leukocytosis due to pneumothorax, now resolved. History of Present Illness Attending Physician: Anatoly Marsh DO pt admitted with acute onset sob, was found on ct to have left upper lobe pneumothorax, underwent chest tube placement, tolerated well. had eval by ct surgery, undewent bronch with bleb resection, tolerated well. Chest tube now out. afebrile since admission, cultures done at time of bronch, afb smear negative, fungal smear negative, routine culture with dawood aspergillus. currently on no treatment. ID asked to eval re aspergillus in bronch culture. he was recently hospitalized for copd exacerbation and treated with rocephin and azithro, tolerated well, was also placed on steroid taper. remains on this, wbc was 28 in ER, now 12. No f/c. denies fevers at home. min cough, non productive, denies hemopytsis/blood tinged sputum. no abd pain, no n/v/d. chest tube out, no pain at tube site, dressing intact. NC in place, chronic O2 at home. no wt loss, no cp, denies sob, justin, wheeze. currently on no abx. blood cultures negative from ER. sitting up in bed on my exam, comfortable, offers no complaints. Allergies Allergy/AdvReac Type Severity Reaction Status Date / Time No Known Allergies Allergy Unverified 08/06/18 15:23 Home Medications Home Medications Medication Instructions Recorded Confirmed Type albuterol sulfate 2 puff INHALATION Q4H PRN 01/08/18 08/06/18 History fluticasone propion-salmeterol 1 puff INHALATION BID 01/08/18 08/06/18 History tiotropium bromide 1 puff INHALATION DAILY 01/08/18 08/06/18 History polyethylene glycol 3350 [Miralax] 17 g PO QAM #1 btl 01/21/18 08/06/18 Rx tamsulosin [Flomax] 0.4 mg PO DAILY #30 cap 01/21/18 08/06/18 Rx prednisone 10 mg PO DAILY 07/24/18 08/06/18 History albuterol sulfate 2.5 mg INH Q4H #1 box 08/02/18 08/06/18 Rx guaifenesin [Mucinex] 600 mg PO Q12 #60 tab 08/02/18 08/06/18 Rx lorazepam 0.5 mg PO HS PRN #15 tab 08/02/18 08/06/18 Rx Patient History Medical History Steroid-dependent COPD (Chronic) Chronic respiratory failure (Chronic) COPD exacerbation (Acute) Pulmonary nodule (Chronic) Tobacco abuse Surgical History No pertinent past surgical history Family History Father Family history non-contributory Social History Preferred Language: Sami Communication Ability: Effective Electric [employer]ater Required: No Beliefs That Will Affect Care: None Current Living Situation: Parent Current Living Situation Comment: with mom Other Information That Helps Us Care for You: No Feels Safe at Home: Yes Safety Concerns: Feels Safe At This Time Smoking Status: Former smoker Tobacco Type: cigarettes Cigarettes Per Day: 20 Do You Dip or Chew Tobacco: No Smoking End Date: 12/2017 Second Hand Exposure: No Tobacco Cessation Education Requested by Patient: No Hx Alcohol Use: Yes Alcohol type: beer Hx Substance Use: No Review of Systems Review of Systems: All systems reviewed & are unremarkable except as noted in HPI & below Physical Exam Constitutional: WD/WN, vitals as above Eyes: PERRL, conjunctivae normal, anicteric sclerae ENMT: external ear and nose normal, oropharynx normal Neck: normal visual inspection Respiratory: normal respiratory effort, lungs clear to auscultation Auscultation: + diminished lung sounds Cardiovascular: RRR, no murmur, no edema Gastrointestinal (Abdomen): normal bowel sounds, soft, nontender, no hepatosplenomegaly Musculoskeletal: no cyanosis or clubbing, extremities motor strength 5/5 Skin: no rashes, warm and dry Psychiatric: A+Ox3, euthymic affect Results & Data Vital Signs (Past 12 Hours) Vital Signs Temp Pulse Resp BP Pulse Ox 08/11/18 07:22 36.3 C L 71 20 122/61 96 Laboratory Results Microbiology 08/08/18 Unknown Bronch Wash,Left Lower Lobe Gram Stain - Final 08/08/18 Unknown Bronch Wash,Left Lower Lobe Bronchoalveolar Lavage Culture - Final Aspergillus fumigatus 08/08/18 Unknown Bronch Wash,Left Lower Lobe Acid Fast Bacilli Smear - Final 08/08/18 Unknown Bronch Wash,Left Lower Lobe Fungal Smear - Final 08/06/18 15:15 Blood Aerobic Blood Culture - Preliminary No growth in Aerobic bottle after 48 hours. 08/06/18 15:15 Blood Anaerobic Blood Culture - Final 08/06/18 17:44 Blood Aerobic Blood Culture - Preliminary No growth in Aerobic bottle after 48 hours. 08/06/18 17:44 Blood Anaerobic Blood Culture - Preliminary No growth in Anaerobic bottle after 48 hours. (1) Pneumothorax Pneumothorax type: spontaneous, primary Qualified Code(s): J93.11 - Primary spontaneous pneumothorax
--- NOTE | 2018-08-11 17:59 | Hospitalist Progress Note ---
Date of Service August 11, 2018 Assessment & Plan (1) Acute on chronic respiratory failure with hypoxia and hypercapnia: - Related to L PTX in the setting of bleb from underlying COPD - Baseline 2 L NC at home use - Post-operatively did have some difficulty weaning due to underlying poor lungs and was initially placed in ICU on 08/08 but has successfully weaned to baseline O2 (2) Pneumothorax: - S/P Thoravent placement in ED and now S/P chest tube placement and removal; S/P L thorascopy with bleb resection of LLL and flex bronchoscopy on 08/09 - Maintain pain management - Cx with few of aspergillus - discussed with pulm that this typically is co lonization in a rather stable individual - could send for IgE levels to assess for reactivity and typically this does not need treatment - CT Surg following - appreciate surgical management- discussed with Arash Vines and request ID input and plan to not treat at this time as likely contamination from mouth - cleared for D/C from their perspective with outpatient F/U (3) COPD (chronic obstructive pulmonary disease): - Recent admission for COPD exacerbation; completed Rocephin/Zithro - Finishing steroid taper from previous admission - 10 mg BID x 2 days then back to baseline 10 mg daily as he has been chronically on this dose since approx. April and pending lung assessment may be able to wean sooner -- Does have leukocytosis which is likely steroid induced/reactive - Continue nebs PRN; Advair and Spiriva (4) BPH (benign prostatic hyperplasia): - Continue Flomax 0.4 mg daily (5) Pulmonary nodule: - CT in Dec 2017 with nodule of JADE -- repeat CT chest did not identify previously noted nodule. (6) DVT prophylaxis: - SCDs; Heparin Dispo: Possible D/C home next 1-2 days Subjective Reports doing better today. States he was laying on his R side and got some increased SOB and felt like it took some time for him to calm down. Seems to be experiencing some anxiety from the extent of his condition. However states he feels like he hasn't felt this good since about December. Reports a nonproductive cough but feels like his coughing is doing the same effect as a flutter valve. Will try and use Mucinex to see if this thins secretions better to expectoration. Tolerating diet without issue. Continues on his baseline O2. ID consulted for aspergillus but likely this is normal oral navjot with cross contamination Review of Systems Constitutional: + fatigue; no fever and no chills Ear, Nose, Mouth, Throat: no sore throat and no dysphagia Respiratory: + cough and + dyspnea on exertion; no dyspnea, no sputum production and no wheezing Cardiovascular: no chest pain, no palpitations and no lightheadedness Gastrointestinal: no abdominal pain, no nausea, no vomiting, no constipation and no diarrhea/loose stools Genitourinary: no dysuria Integumentary: no rash Physical Exam Constitutional: WD/WN, vitals as above Eyes: + anicteric sclerae ENMT: Ears: no hearing impairment Neck: trachea midline Respiratory: normal respiratory effort Auscultation: + diminished lung sounds Cardiovascular: RRR, no murmur, no edema Chest (Breasts): Additional Comments: Dressing applied to thorax C/D/I Gastrointestinal (Abdomen): Inspection/Auscultation: normal bowel sounds Percussion/Palpation: abdomen soft; abdomen nontender Musculoskeletal: Head/Neck/Chest: normocephalic, head atraumatic and neck supple Skin: no rashes, warm and dry Neurologic: moves all extremities Psychiatric: A+Ox3, euthymic affect Results & Data Vital Signs (Past 12 Hours) Vital Signs Temp Pulse Resp BP Pulse Ox 08/11/18 15:26 37.0 C 80 17 125/68 98 08/11/18 07:22 36.3 C L 71 20 122/61 96 PG Care Time/CCT Total # of Minutes Spent Total Time Spent with Patient: Total time spent is greater than 50% in coordination of care (as documented) at patient's floor/unit and/or counseling patient: (1) BPH (benign prostatic hyperplasia) Lower urinary tract symptom presence: symptoms absent Qualified Code(s): N40.0 - Benign prostatic hyperplasia without lower urinary tract symptoms
[2018-08-11] MEDS: guaiFENesin 600 MG TABCR PO SCH (21:44)
[2018-08-11] MEDS: ALBUTEROL HFA 8 GM INHALER INH PRN (21:44)
[2018-08-12] MEDS: ACETAMINOPHEN 325 MG TAB PO SCH ×4 (04:28→21:05)
[2018-08-12] MEDS: ALBUTEROL HFA 8 GM INHALER INH PRN ×4 (04:29→21:04)
[2018-08-12] MEDS: TIOTROPIUM BROMIDE 5 PUFF/90 MCG INH INH SCH (08:49)
[2018-08-12] MEDS: FLUTICASONE/SALMETEROL 250/50 (ADVAIR) 14 PUFF/1 INHALER INH SCH ×2 (08:49→21:04)
[2018-08-12] MEDS: guaiFENesin 600 MG TABCR PO SCH ×2 (08:50→21:05)
[2018-08-12] MEDS: TAMSULOSIN HCL 0.4 MG CAP PO SCH (08:50)
[2018-08-12] MEDS: predniSONE 10 MG TABLET PO SCH ×2 (08:50→21:06)
[2018-08-12] MEDS: HEPARIN SOD 5,000 UNIT/0.5 ML VIAL SQ SCH ×2 (08:52→21:08)
[2018-08-12] MEDS: DOCUSATE SODIUM 100 MG CAP PO SCH ×2 (08:55→21:05)
--- NOTE | 2018-08-12 10:49 | Surgery Progress Note ---
Date of Service August 12, 2018 Assessment & Plan (1) Pneumothorax: -pt. is s/p left VATS with bleb resection -path. did not show any malignancy -continue ambulation, coughing deep breathing, and pain control measures -pt. ok for d/c from thoracic surgery standpoint; we will call him for a follow- up and repeat CXR (2) Atelectasis of left lung: -pt. is s/p FOB on 08/08/18 -cultures from LLL bronchial washing are notable fo Aspergillus -ID input noted--no treatment in the absence of symptoms as this may be an oral contaminant Subjective Pt. doing well and he notes a good night last night He continues to ambulate in hallway and is tolerating diet. No voiding difficulty. Physical Exam Constitutional: WD/WN, vitals as above well developed and well nourished; no acute distress Respiratory: BS with slight decrease at bases Cardiovascular: Rate/Rhythm: regular rate and regular rhythm Musculoskeletal: no calf tenderness Results & Data Vital Signs (Past 12 Hours) Vital Signs Temp Pulse Resp BP BP Pulse Ox 08/12/18 07:17 36.7 C 69 16 116/68 97 08/11/18 23:47 36.6 C 72 14 127/68 98 (1) Pneumothorax Pneumothorax type: spontaneous, primary Qualified Code(s): J93.11 - Primary spontaneous pneumothorax
--- NOTE | 2018-08-12 13:47 | Hospitalist Progress Note ---
Date of Service August 12, 2018 Assessment & Plan (1) Acute on chronic respiratory failure with hypoxia and hypercapnia: - Related to L PTX in the setting of bleb from underlying COPD - Baseline 2 L NC at home use - Post-operatively did have some difficulty weaning due to underlying poor lungs and was initially placed in ICU on 08/08 but has successfully weaned to baseline O2 (2) Pneumothorax: - S/P Thoravent placement in ED and now S/P chest tube placement and removal; S/P L thorascopy with bleb resection of LLL and flex bronchoscopy on 08/09 - Maintain pain management - Cx with few of aspergillus - discussed with pulm that this typically is c olonization in a rather stable individual - could send for IgE levels to assess for reactivity and typically this does not need treatment - CT Surg following - appreciate surgical management- requested ID input and plan to not treat at this time as likely contamination from mouth - cleared for D/C from their perspective with outpatient F/U (3) COPD (chronic obstructive pulmonary disease): - Recent admission for COPD exacerbation; completed Rocephin/Zithro - Finishing steroid taper from previous admission - Will continue with 10 mg BID at this time given more wheezing on examination today -- Does have leukocytosis which is likely steroid induced/reactive - Continue nebs PRN; Advair and Spiriva (4) BPH (benign prostatic hyperplasia): - Continue Flomax 0.4 mg daily (5) Pulmonary nodule: - CT in Dec 2017 with nodule of JADE -- repeat CT chest did not identify previously noted nodule (6) DVT prophylaxis: - SCDs; Heparin Dispo: Home tomorrow Subjective Patient reports doing okay today. Feels like his mucous is thinning some and is able to cough better. Does have some wheezing on examination today. Is a little nervous about his lungs going forward and his incisions site. Doing well otherwise. Planning on home tomorrow. Review of Systems Constitutional: + fatigue; no fever and no chills Respiratory: + cough, + dyspnea on exertion (improving) and + sputum production; no dyspnea and no wheezing Cardiovascular: no chest pain, no palpitations and no edema Gastrointestinal: no abdominal pain, no nausea, no vomiting, no constipation and no diarrhea/loose stools Genitourinary: no dysuria Integumentary: no rash Physical Exam Constitutional: WD/WN, vitals as above Eyes: + anicteric sclerae ENMT: Ears: no hearing impairment Neck: trachea midline Respiratory: normal respiratory effort Auscultation: + wheezes Cardiovascular: RRR, no murmur, no edema Chest (Breasts): Additional Comments: + multiple dressings to thorax C/D/I Gastrointestinal (Abdomen): Inspection/Auscultation: normal bowel sounds Percussion/Palpation: abdomen soft; abdomen nontender Musculoskeletal: Head/Neck/Chest: normocephalic, head atraumatic and neck supple Skin: no rashes, warm and dry Neurologic: moves all extremities Psychiatric: A+Ox3, euthymic affect Results & Data Vital Signs (Past 12 Hours) Vital Signs Temp Pulse Resp BP Pulse Ox 08/12/18 07:17 36.7 C 69 16 116/68 97 PG Care Time/CCT Total # of Minutes Spent Total Time Spent with Patient: Total time spent is greater than 50% in coordination of care (as documented) at patient's floor/unit and/or counseling patient: (1) BPH (benign prostatic hyperplasia) Lower urinary tract symptom presence: symptoms absent Qualified Code(s): N40.0 - Benign prostatic hyperplasia without lower urinary tract symptoms
[2018-08-12] MEDS: LOPERAMIDE HCL 2 MG CAP PO PRN (15:39)
[2018-08-13] MEDS: ACETAMINOPHEN 325 MG TAB PO SCH ×4 (04:34→22:13)
[2018-08-13] MEDS: ALBUTEROL HFA 8 GM INHALER INH PRN ×3 (04:34→14:31)
[2018-08-13] MEDS: LOPERAMIDE HCL 2 MG CAP PO PRN ×2 (04:37→19:51)
--- NOTE | 2018-08-13 07:54 | Surgery Progress Note ---
Date of Service August 13, 2018 Assessment & Plan (1) Pneumothorax: -pt. is s/p left VATS with bleb resection -path. did not reveal any malignancy -continue ambulation, coughing deep breathing, and pain control measures as noted previously -pt. stablefor d/c from thoracic surgery standpoint; we will call him for a follow-up and repeat CXR (2) Atelectasis of left lung: -pt. is s/p FOB on 08/08/18 -cultures from LLL bronchial washing are notable fo Aspergillus -ID input noted--no treatment in the absence of symptoms as this may be an oral contaminant Subjective Pt. doing well. No worsening SOB. He notes minor incisional pain. Physical Exam Physical Exam: Incisions examined and are clean without drainage or signs of infection Constitutional: WD/WN, vitals as above well developed and well nourished; no acute distress Respiratory: BS with slight decrease Cardiovascular: Rate/Rhythm: regular rate and regular rhythm Results & Data Vital Signs (Past 12 Hours) Vital Signs Temp Pulse Pulse Resp BP Pulse Ox 08/13/18 07:37 36.5 C 72 17 124/72 98 08/12/18 23:49 36.8 C 84 14 127/72 96 (1) Pneumothorax Pneumothorax type: spontaneous, primary Qualified Code(s): J93.11 - Primary spontaneous pneumothorax
[2018-08-13] MEDS: DOCUSATE SODIUM 100 MG CAP PO SCH ×2 (08:40→19:51)
[2018-08-13] MEDS: TAMSULOSIN HCL 0.4 MG CAP PO SCH (08:42)
[2018-08-13] MEDS: guaiFENesin 600 MG TABCR PO SCH ×2 (08:42→22:12)
[2018-08-13] MEDS: FLUTICASONE/SALMETEROL 250/50 (ADVAIR) 14 PUFF/1 INHALER INH SCH ×2 (08:42→22:32)
[2018-08-13] MEDS: TIOTROPIUM BROMIDE 5 PUFF/90 MCG INH INH SCH (08:42)
[2018-08-13] MEDS: predniSONE 10 MG TABLET PO SCH ×2 (08:42→22:13)
[2018-08-13] MEDS: HEPARIN SOD 5,000 UNIT/0.5 ML VIAL SQ SCH ×2 (08:43→22:15)
[2018-08-13 08:55] LABS: Hemoglobin 11.3 g/dL (14.0-18.0); Mean Corpuscular Hgb Conc 32.3 g/dL (32-36); Mean Corpuscular Volume 98.3 fL (80-100); Mean Platelet Volume 9.4 fL (7.4-10.4); Platelet Count 199 K/uL (130-400); RDW Coefficient of Variation 13.8 % (11.5-14.5); RDW Standard Deviation 48.6 fL (36.4-46.3); Red Blood Count 3.56 M/uL (4.7-6.1); White Blood Count 12.84 K/uL (4.8-10.8)
[2018-08-13 09:20] LABS: BUN Creatinine Ratio 12.2 (10-20); Calcium 9.3 mg/dl (8.5-10.1); Creatinine Clr Calc Pharmacy 137.3 ml/min; Est GFR (African American) 137.3; Est GFR (Non-African American) 118.5
--- NOTE | 2018-08-13 14:28 | Hospitalist Progress Note ---
Date of Service August 13, 2018 Assessment & Plan (1) Acute on chronic respiratory failure with hypoxia and hypercapnia: - Related to L PTX in the setting of bleb from underlying COPD - Baseline 2 L NC at home use - Post-operatively did have some difficulty weaning due to underlying poor lungs and was initially placed in ICU on 08/08 but has successfully weaned to baseline O2 (2) Pneumothorax: - S/P Thoravent placement in ED and now S/P chest tube placement and removal; S/P L thorascopy with bleb resection of LLL and flex bronchoscopy on 08/09 - Maintain pain management - Cx with few of aspergillus - discussed with pulm that this typically is c olonization in a rather stable individual - could send for IgE levels to assess for reactivity and typically this does not need treatment - CT Surg following - appreciate surgical management- requested ID input and plan to not treat at this time as likely contamination from mouth - cleared for D/C from their perspective with outpatient F/U (3) COPD (chronic obstructive pulmonary disease): - Recent admission for COPD exacerbation; completed Rocephin/Zithro - Finishing steroid taper from previous admission - Will continue with 10 mg BID at this time given more wheezing on examination today but likely can resume daily dosing on D/C -- Does have leukocytosis which is likely steroid induced/reactive - Continue nebs PRN; Advair and Spiriva (4) BPH (benign prostatic hyperplasia): - Continue Flomax 0.4 mg daily (5) Pulmonary nodule: - CT in Dec 2017 with nodule of JADE -- repeat CT chest did not identify previously noted nodule (6) DVT prophylaxis: - SCDs; Heparin Dispo: Reports he wouldn't have a ride until tomorrow, medically optimal for discharge Subjective Reports feeling okay today. Some mild chest discomfort at previous chest tube sites. Feels like breathing is slightly better and ambulating hallways.. Labs are stable. No new symptoms. Does appear to have some fear about returning home given his experience the last time he was discharged. States he doesn't have a ride until tomorrow Review of Systems Constitutional: no fever and no chills Respiratory: + cough, + dyspnea on exertion (improving) and + sputum production; no dyspnea and no wheezing Cardiovascular: + chest pain (at previous chest tube site) Gastrointestinal: no abdominal pain, no nausea, no vomiting, no constipation and no diarrhea/loose stools Genitourinary: no dysuria Integumentary: no rash Physical Exam Constitutional: WD/WN, vitals as above Eyes: + anicteric sclerae ENMT: Ears: no hearing impairment Neck: trachea midline Respiratory: normal respiratory effort Auscultation: + wheezes (minimal in RUL) Cardiovascular: RRR, no murmur, no edema Chest (Breasts): Additional Comments: a couple well approximated surgical incisions on lateral chest wall and back, more ecchymosis of incision site closer to axilla; no erythema or drainage Gastrointestinal (Abdomen): Inspection/Auscultation: normal bowel sounds Percussion/Palpation: abdomen soft; abdomen nontender Musculoskeletal: Head/Neck/Chest: normocephalic, head atraumatic and neck supple Skin: no rashes, warm and dry Neurologic: moves all extremities Psychiatric: A+Ox3, euthymic affect Results & Data Vital Signs (Past 12 Hours) Vital Signs Temp Pulse Resp BP Pulse Ox 08/13/18 07:37 36.5 C 72 17 124/72 98 PG Care Time/CCT Total # of Minutes Spent Total Time Spent with Patient: Total time spent is greater than 50% in coordination of care (as documented) at patient's floor/unit and/or counseling patient: (1) BPH (benign prostatic hyperplasia) Lower urinary tract symptom presence: symptoms absent Qualified Code(s): N40.0 - Benign prostatic hyperplasia without lower urinary tract symptoms
[2018-08-14] MEDS: ACETAMINOPHEN 325 MG TAB PO SCH ×2 (04:28→10:12)
[2018-08-14] MEDS: ALBUTEROL HFA 8 GM INHALER INH PRN ×2 (04:28→08:31)
[2018-08-14] MEDS: FLUTICASONE/SALMETEROL 250/50 (ADVAIR) 14 PUFF/1 INHALER INH SCH (08:30)
[2018-08-14] MEDS: TIOTROPIUM BROMIDE 5 PUFF/90 MCG INH INH SCH (08:30)
[2018-08-14] MEDS: predniSONE 10 MG TABLET PO SCH (08:31)
[2018-08-14] MEDS: TAMSULOSIN HCL 0.4 MG CAP PO SCH (08:31)
[2018-08-14] MEDS: DOCUSATE SODIUM 100 MG CAP PO SCH (08:31)
[2018-08-14] MEDS: guaiFENesin 600 MG TABCR PO SCH (08:31)
[2018-08-14] MEDS: HEPARIN SOD 5,000 UNIT/0.5 ML VIAL SQ SCH (08:33)
[2018-08-14] MEDS: LOPERAMIDE HCL 2 MG CAP PO PRN (08:36)
--- NOTE | 2018-08-14 09:59 | XRay Report ---
XR chest 1V portable CLINICAL HISTORY: F/U resolved PTX COMPARISON STUDY: Chest CT August 07, 2018. Chest radiograph August 09, 2018. FINDINGS: Postoperative findings within the left lung are noted. There is no pneumothorax. Cardiomedi astinal silhouette is stable. There is no evidence for pneumonia or pulmonary edema. Postoperative fi ndings within the left shoulder are incidentally noted. IMPRESSION: No acute cardiopulmonary findings. No pneumothorax. Electronically signed by: Ari Gilbert M.D. 08/14/2018 9:57 AM
--- NOTE | 2018-08-14 15:02 | Discharge Summary ---
Date of Service August 14, 2018 Admission HPI Per Admitting Provider Mr. Vazquez is a 58 year old male with past medical history of COPD, BPH, Chronic respiratory failure with hypoxia and hypercapnia who presented to the ER with acute shortness of breath. He was recently admitted from 07/24-08/02/18 for an acute COPD exacerbation; pt. was advised to complete a steroid taper as an outpatient. He also completed a course of Rocephin/Azithromax during his admission. Pt. reports breathing was improving at home; he developed acute shortness of breath this morning. Has shortness of breath that is constant, both at rest and with exertion. Also complains of left sided chest pain and palpitations. Denies URI symptoms, cough, pharyngitis, LE edema, abd pain, constipation or diarrhea, dysuria or hematuria, nausea or vomiting. ER course: CXR showed a moderate to large left pneumothorax. Thoravent was placed; repeat CXR showed significant decrease in size of left pneumothorax. Will be admitted for treatment of left sided pneumothorax. Principal Diagnosis Pneumothorax 2/2 Bleb Rupture with Recent COPD Exacerbation Discharge Exam Constitutional WD/WN, vitals as above Eyes + anicteric sclerae ENMT Ears: no hearing impairment Neck trachea midline Respiratory normal respiratory effort Auscultation: + wheezes (minimal in RUL) Cardiovascular RRR, no murmur, no edema Chest (Breasts) Additional Comments: 2 incision sites on lateral L chest wall well approximated with some ecchymosis but no erythema or drainage; one incision on L back well- approximated without erythema or drainage Gastrointestinal (Abdomen) Inspection/Auscultation: normal bowel sounds Percussion/Palpation: abdomen soft; abdomen nontender Musculoskeletal Head/Neck/Chest: normocephalic, head atraumatic and neck supple Skin no rashes, warm and dry Neurologic moves all extremities Psychiatric A+Ox3, euthymic affect Discharge Data Allergies Allergy/AdvReac Type Severity Reaction Status Date / Time No Known Allergies Allergy Unverified 08/06/18 15:23 Consultations 08/06/18 16:47 ED Decision to Admit Stat 08/06/18 18:47 Consult Thoracic Surgery Routine 08/08/18 17:53 Consult Rehabilitation Tech Stat 08/08/18 18:08 Consult Case Management - Discharge Planning Routine 08/11/18 12:28 Consult Infectious Diseases Routine Procedures Performed Operation Date: 08/08/18 09:20 Actual Procedures s Flexible Bronchoscopy, - Chandrakant Cortes MD, FACS p Left Thoracoscopy with Bleb Resection(Left) - Chandrakant Cortes MD, FACS Ordered Studies 08/07/18 09:44 CT chest wo con Routine Hospital Course (1) Acute on chronic respiratory failure with hypoxia and hypercapnia: - Related to L PTX in the setting of bleb from underlying COPD - Baseline 2 L NC at home use - Post-operatively did have some difficulty weaning from vent due to underlying poor lungs and was initially placed in ICU on 08/08 but has successfully weaned to baseline O2 (2) Pneumothorax: - S/P Thoravent placement in ED and now S/P chest tube placement and removal; S/P L thorascopy with bleb resection of LLL and flex bronchoscopy on 08/09 - Cx with few of aspergillus - discussed with pulm that this typically is colonization in a rather stable individual - could send for IgE levels to assess for reactivity and typically this does not need treatment - CT Surg following - requested ID input and plan to not treat at this time for aspergillus as likely contamination from mouth - has F/U appointment for 08/15 (3) COPD (chronic obstructive pulmonary disease): - Recent admission for COPD exacerbation; completed Rocephin/Zithro - Finishing steroid taper from previous admission - Will continue with 10 mg BID x 3-4 more days at this time given wheezing on examination today but likely can resume daily dosing on / -- Does have leukocytosis which is likely steroid induced/reactive -- Reports his breathing feels better than it has since December - Continue nebs PRN; Advair and Spiriva; Mucinex BID (4) BPH (benign prostatic hyperplasia): - Continue Flomax 0.4 mg daily (5) Pulmonary nodule: - CT in Dec 2017 with nodule of JADE -- repeat CT chest did not identify previously noted nodule Total Time Total Time Spent Total Time Spent (In Minutes): Greater than 30 minutes Discharge Plan Discharge Items Patient Disposition: Home - Self-Care Reason For Visit: PNEUMOTHORAX Discharge Diagnosis: Pneumothorax Discharge Goals: Decrease discomfort, Improve disease control and Prevent disease Activity: Resume your previous activity Non-emergency contact: Primary Care Provider and Surgeon Call non-emergency contact if: you have any medication questions, your symptoms worsen and you have a fever Follow-up/Referrals: Chandrakant Cortes MD, FACS [Surgeon] - 08/15/18 1:30 pm (A follow-up appointment has been made on your behalf at Dr. Cortes's office. Please get a chest x-ray anytime prior to the appointment for Dr. Cortes to review. Please call the office with any questions or concerns. ) Ethan Berman MD [Primary Care Provider] - Diet: Heart Healthy Addtl Provider Instructions: Pneumothorax (Collapsed Lung): - You were admitted because a bleb (basically a air bubble in the lung) popped and put air outside of your lungs. When this happens it can cause your lung to deflate some and makes breathing harder. Thankfully with a tube to help remove the air and a surgical repair, your lungs are back to being inflated properly. - Your incision sites look good and you may have some tenderness in the rib cage for a couple weeks but should continue to improve. If you notice any increased redness or drainage from the surgical sites please call Dr. Cortes's office. - You were also treated for a bronchitis when you were here recently. Will finish off a steroid taper and recommend to continue your inhalers to keep the wheezing under control. With everything that has gone on in the past couple weeks, it may take a couple more weeks until you are back to normal. -- Since you have been on the Prednisone 10 mg daily for awhile recommend taking 10 mg twice a day for the next 3-4 days then continue that 10 mg dose just daily. Now that you had the procedure hopefully this will put your lungs in a better place that you may be able to come off the steroids altogether. Please talk with your family doctor about this. - Recommend to take it easier and to gradually increase your activity. Take breaks as needed because you may get some shortness of breath when walking around but should improve when you rest. Continue your oxygen as previously prescribed as well. - You may use Tylenol as needed for discomfort until the ribs completely heal. - Dr. Cortes has a follow-up for you on Wednesday at 1:30 PM - you do not need to get another chest xray - the one you got today can be used for your appointment Diarrhea: - May use imodium as needed. This can be over the counter and follow directions for dosing Home Medications: - Please continue your home medications as previously prescribed. We did not make any adjustments to these. Prescriptions: Continued guaifenesin [Mucinex] 600 mg Tablet Extended Release 12hr 600 mg PO Q12 Qty: 60 RF: 0 albuterol sulfate 2.5 mg /3 mL (0.083 %) solution for nebulization 2.5 mg INH Q4H Qty: 1 RF: 2 lorazepam 0.5 mg tablet 0.5 mg PO HS PRN (Reason: sleep) Qty: 15 RF: 0 fluticasone propion-salmeterol 250-50 mcg/dose blister with device 1 puff Inhalation BID RF: 0 albuterol sulfate 90 mcg/actuation HFA aerosol inhaler 2 puff Inhalation Q4H PRN (Reason: Shortness Of Breath) RF: 0 tiotropium bromide 18 mcg capsule, w/inhalation device 1 puff Inhalation DAILY RF: 0 polyethylene glycol 3350 [Miralax] 17 gram Powder In Packet 17 g PO QAM Qty: 1 RF: 0 tamsulosin [Flomax] 0.4 mg capsule 0.4 mg PO DAILY Qty: 30 RF: 2 prednisone 10 mg Tablet 10 mg PO DAILY 14 Days Qty: 14 RF: 0 Stand-Alone Forms: [facility] Discharge Orders: Discharge Order (Routine); Ordered 08/14/18 Ordered By: Yuko Pierce Admission Data Admit Date/Time: 08/06/18 17:31 Attending Provider: Anatoly Marsh Admit Provider: Hung Johnson Primary Care Provider: Ethan Berman Other Providers: Tommie Cantor ; Chandrakant Cortes ; Anatoly Marsh ; Nicolasa Day Service: Intensive Care Unit Other Interventions: Discharge Summary Assessment (RN) Last Done: 08/14/18 10:25 Pending Studies at Discharge: No DC Date/Time DO NOT enter until pt leaves facility: 08/14/18 13:32
--- NOTE | 2018-08-21 20:38 | Operative Report ---
DATE OF OPERATION: 08/08/2018 ADDENDUM PROCEDURE: Left thoracoscopy with apical bleb resection of the superior segment of left lower lobe. PREOPERATIVE DIAGNOSIS: Spontaneous left pneumothorax. POSTOPERATIVE DIAGNOSIS: Spontaneous left pneumothorax. ANESTHESIA: General anesthesia, endotracheal intubation with single lumen tube. DESCRIPTION OF PROCEDURE: Mr. Vazquez underwent an uncomplicated left thoracoscopy with wedge resection of a bleb which was large in the superior segment of the left lower lobe. He did very well with the procedure. Mr. Vines was present for the entire case and was instrumental in holding the camera. He also closed the skin incisions at the conclusion. I attest to the content of the Intraoperative Record and any orders documented therein. Any exception s are noted below.
== END 2018-08-14 13:32 | disposition home or self-care (01) | DRG 163 ==
LOC: ED 14:57 → SUATTDRO 17:31 → 3N 17:31 → 1E 08-08 18:27 → 3N 08-09 10:22
DX: J93.83 Other pneumothorax; N40.0 Benign prostatic hyperplasia without lower urinary tract symptoms; R91.1 Solitary pulmonary nodule; J96.21 Acute and chronic respiratory failure with hypoxia; Z79.52 Long term (current) use of systemic steroids; J43.9 Emphysema, unspecified; Z87.891 Personal history of nicotine dependence; J98.11 Atelectasis

== ENCOUNTER 2019-10-23 20:50 | Inpatient (IN) ==
[2019-10-23] MEDS ORDERED: ALBUT/IPRATROP 3MG/0.5MG NEB 3 ML VIAL NEB STA (21:47)
[2019-10-23 22:07] LABS: Basophils # (auto) 0.01 K/uL (0-0.2); Basophils % (auto) 0.1 %; Hemoglobin 14.1 g/dL (14.0-18.0); Immature Granulocytes # (auto) 0.02 K/uL (0.00-0.02); Immature Granulocytes % (auto) 0.2 %; Lymphocytes # (auto) 0.56 K/uL (1.2-3.4); Lymphocytes % (auto) 6.2 %; Mean Corpuscular Hgb Conc 31.3 g/dL (32-36); Mean Platelet Volume 9.9 fL (7.4-10.4); Monocytes # (auto) 0.35 K/uL (0.11-0.59); Monocytes % (auto) 3.9 %; Neutrophils # (auto) 8.06 K/uL (1.4-6.5); Neutrophils % (auto) 89.6 %; Platelet Count 382 K/uL (130-400); RDW Coefficient of Variation 12.8 % (11.5-14.5); RDW Standard Deviation 47.9 fL (36.4-46.3); Red Blood Count 4.41 M/uL (4.7-6.1)
[2019-10-23 22:21] LABS: Partial Thromboplastin Ratio 0.9; Partial Thromboplastin Time 25.1 Seconds (21.0-31.0); Prothrombin Time 10.5 Seconds (9.0-12.0)
[2019-10-23 22:23] LABS: Alanine Aminotransferase 14 U/L (12-78); Albumin Level 3.7 gm/dl (3.4-5.0); Anion Gap 0 (3-11); Aspartate Aminotransferase 13 U/L (15-37); BUN Creatinine Ratio 4.8 (10-20); Blood Urea Nitrogen 3 mg/dl (7-18); Calcium 9.6 mg/dl (8.5-10.1); Carbon Dioxide 39 mmol/L (21-32); Chloride 99 mmol/L (98-107); Est GFR (African American) 120.4; Est GFR (Non-African American) 103.9; Glucose 108 mg/dl (70-99); Potassium 4.5 mmol/L (3.5-5.1); Sodium 138 mmol/L (136-145)
[2019-10-23 22:27] LABS: Alkaline Phosphatase 67 U/L (45-117); Bilirubin,Total 0.4 mg/dl (0.2-1); Globulin 3.6 gm/dl (2.5-4.0); Total Protein 7.3 gm/dl (6.4-8.2); Troponin I < 0.015 ng/ml (0-0.045)
[2019-10-23 22:30] LABS: D Dimer 580 ug/L FEU (0-500)
[2019-10-23] MEDS ORDERED: OPTIRAY 320 125ml IV ONE (23:32)
[2019-10-24] MEDS ORDERED: methylPREDNISolone 125 MG/2 ML VIAL IV STA (00:40)
[2019-10-24] MEDS ORDERED: ALBUT/IPRATROP 3MG/0.5MG NEB 3 ML VIAL NEB STA (00:40)
--- NOTE | 2019-10-24 03:49 | History & Physical Report ---
Date of Service October 24, 2019 Assessment & Plan (1) COPD exacerbation: Gibson Vazquez is a 59 y/o male with past medical hx of COPD, cataracts, chronic respiratory failure with hypoxia and hypercapnia, weight loss, pulmonary nodule who presents for dyspnea with acute COPD exacerbation. - He failed outpatient therapy with failure on oral Pred - CTA chest in ED showed no PE, mild to moederate emphysematous changes, several bulla in left mid lung, no pneumothorax or pleural effusion, no acute disease infiltrate, moderate multilevel degenerative changes in thoracic spine including chronic appearing 15% compression fracture at T6 and L1. No acute compression fracture or subluxation is seen. - In ED he received, solumedrol 125mg IV, duoneb x2, c/w Methypred 40mg IV q6h - c/w spiriva 1 puff daily, c/w home advair 250/50 - Duonebs scheduled q6h - Azithromycin 500mg, followed by 250mg x 4 days - Pulmonary toilet, mucinex/flutter valve/incentive spirometry - Smoking cessation, unfortunately he started smoking again, provided smoking cessation at bedside. - He has very poor lung function at baseline, he is at his O2 requirement baseline - Automatic Teller Machine Servicer consult, he has very poor intake, concerned that he is not getting adequate caloric intake to meet metabolic demands from work of breathing with terrible COPD/lung disease. Provided education to patient to increase protein intake. - PT/OT as he needs to ambulate for his COPD and he needs to build/not lose any strength. DVT ppx: Lovenox 40mg SQ daily Dispo: Med/surg tele Obs Code: full FENGI: Regular diet, Pepcid 40mg PO daily (2) BPH (benign prostatic hyperplasia): c/w home Flomax 0.4mg daily (3) Tobacco abuse: as above Nicotine patch 7mg ordered History of Present Illness Chief Complaint: Dyspnea Primary Care Provider: Ethan Berman MD Gibson Vazquez is a 59 y/o male with past medical hx of COPD, cataracts, chronic respiratory failure with hypoxia and hypercapnia, weight loss, pulmonary nodule who presents for dyspnea. He notes symptoms feel like prior acute COPD episodes. He notes that for over the past week he has been more short of breath with more tightness in chest. He notes he has been taking his home inhalers as prescribed but has not had improvement. He notes that he was started on Prednisone taper 10/19 and is currently tapered down to 10mg. He notes that he did not feel any improvement with PO prednisone. In Ed, He received IV Methylpred, albuterol treatments which he notes did not provide any relief. He notes that his chronic cough has not changed from baseline and he his cough has been non-productive. He denies any other chest pain outside of the tightness. He denies any nausea, vomiting, fever, chills. He notes he has cataracts and has trouble seeing the knob on his home O2. He is on 2L at rest and 3L with exertion. He notes not increasing O2 to help because he can't see the knobs. He is already in process of getting surgical correction for cataracts. He has a long standing smoking history from early adolescence to 2018 when he stopped. When asked if any more social stressors, he notes "not really"....."my mom about 4 weeks ago." He then notes he has started smoking again to cope with loss of his mother. When asked about nutrition, he notes only eating two bites of pasta today, no lunch, no breakfast. Cannot recall what he ate yesterday. Allergies Allergy/AdvReac Type Severity Reaction Status Date / Time No Known Allergies Allergy Unverified 10/23/19 22:46 Home Medications Home Medications Medication Instructions Recorded Confirmed Type fluticasone propion-salmeterol 1 puff INHALATION BID 01/08/18 10/23/19 History tiotropium bromide 1 puff INHALATION DAILY 01/08/18 10/23/19 History lorazepam 0.5 mg PO HS PRN #15 tab 08/02/18 10/23/19 Rx Portable Oxygen #1 ea 02/08/19 10/23/19 Rx albuterol sulfate 90 mcg/actuation 2 puffs INH Q6H PRN #8.5 gm 09/11/19 10/23/19 Rx aerosol inhaler albuterol sulfate 2.5 mg INH UD PRN 10/16/19 10/23/19 History guaifenesin [Mucinex] 400 mg PO BID 10/16/19 10/23/19 History prednisone 10 mg PO .TAPER UD 10/16/19 10/23/19 History tamsulosin [Flomax] 0.4 mg PO DAILY 10/16/19 10/23/19 History Past Med/Surg History Medical History (Updated 10/24/19 @ 04:14 by Foreign Tucker DO) Chronic respiratory failure PT NOT SURE COPD (chronic obstructive pulmonary disease) LAST FLARE UP JULY 2018 - COLLAPSED LUNG LEFT Enlarged prostate Oxygen dependent 24 HOURS A DAY, 2 L AT REST, 3 L WITH ACTIVITY Steroid-dependent COPD Tobacco abuse Surgical History History of colonoscopy History of lung surgery BLEB History of shoulder surgery LEFT Family History Father Family history non-contributory Social History Smoking Status: Never smoker Cigarettes Per Day: 3 CIGS/ PER DAY - ADVISED NPO; Second Hand Exposure: No; Hx Alcohol Use: No Hx Substance Use: No Preferred Language: Bengali Communication Ability: Effective Matlab Developer Required: No Beliefs That Will Affect Care: None Current Living Situation: Family Current Living Situation Comment: LIVES WITH BROTHER Feels Safe at Home: Yes Review of Systems Review of Systems: All systems reviewed & are unremarkable except as noted in HPI & below Constitutional: no fever and no chills Eyes: as per Subjective / HPI Ear, Nose, Mouth, Throat: no nasal congestion, no nasal obstruction and no epistaxis Respiratory: as per Subjective / HPI; no hemoptysis Cardiovascular: no syncope and no edema Gastrointestinal: no nausea and no vomiting Genitourinary: no dysuria and no urinary frequency Musculoskeletal: no back pain and no body aches Integumentary: no rash Neurologic: no localized weakness and no numbness Physical Exam Constitutional: + thin and cooperative; + not healthy appearing Neck: normal visual inspection and trachea midline Respiratory: able to speak in complete sentences; no respiratory distress Auscultation: + diminished lung sounds (very poor movement diffusely) and + wheezes (diffuse expiratory) Cardiovascular: Rate/Rhythm: regular rate and regular rhythm Extremities: no edema Gastrointestinal (Abdomen): Percussion/Palpation: abdomen soft; abdomen nontender, no guarding and abdomen not rigid Musculoskeletal: Head/Neck/Chest: normocephalic and head atraumatic Skin: no rashes, warm and dry Neurologic: moves all extremities and awake Psychiatric: Orientation: alert and oriented x 3 Mood: + anxious mood Results & Data Results & Data ([facility]) Vital Signs (Past 12 Hours) Vital Signs Temp Pulse Pulse Pulse Resp Resp BP 10/24/19 02:10 75 18 10/24/19 00:50 78 16 10/24/19 00:27 90 20 10/24/19 00:23 90 20 10/23/19 22:30 77 18 10/23/19 22:20 78 15 10/23/19 22:10 82 10/23/19 22:04 81 H 10/23/19 22:01 82 22 10/23/19 22:00 79 124/85 10/23/19 21:57 10/23/19 21:56 81 10/23/19 21:52 85 129/69 10/23/19 21:01 10/23/19 20:52 37.1 C 87 20 139/83 BP Pulse Ox Pulse Ox 10/24/19 02:10 114/70 97 10/24/19 00:50 97 10/24/19 00:27 114/68 94 10/24/19 00:23 97 10/23/19 22:30 110/92 97 10/23/19 22:20 97 10/23/19 22:10 99 10/23/19 22:04 98 10/23/19 22:01 98 10/23/19 22:00 98 10/23/19 21:57 96 10/23/19 21:56 98 10/23/19 21:52 98 10/23/19 21:01 95 10/23/19 20:52 96 Laboratory Results Laboratory Results - last 24 hr 10/23/19 10/23/19 10/23/19 21:55 21:55 21:55 WBC 9.00 RBC 4.41 L Hgb 14.1 Hct 45.0 MCV 102.0 H MCH 32.0 MCHC 31.3 L RDW Std Deviation 47.9 H RDW Coeff of Renato 12.8 Plt Count 382 MPV 9.9 Immature Gran % (Auto) 0.2 Neut % (Auto) 89.6 Lymph % (Auto) 6.2 Ashe % (Auto) 3.9 Eos % (Auto) 0.0 Baso % (Auto) 0.1 Neut # (Auto) 8.06 H Lymph # (Auto) 0.56 L Ashe # (Auto) 0.35 Eos # (Auto) 0.00 Baso # (Auto) 0.01 Immature Gran # (Auto) 0.02 PT 10.5 INR 1.0 APTT 25.1 PTT Ratio 0.9 D-Dimer 580 H* Sodium 138 Potassium 4.5 Chloride 99 Carbon Dioxide 39 H Anion Gap 0 L BUN 3 L Creatinine 0.69 Est Cr Clr Drug Dosing Not Reportable Est GFR ( Amer) 120.4 Est GFR (Non-Af Amer) 103.9 BUN/Creatinine Ratio 4.8 L Glucose 108 H Calcium 9.6 Total Bilirubin 0.4 AST 13 L ALT 14 Alkaline Phosphatase 67 Troponin I < 0.015 Total Protein 7.3 Albumin 3.7 Globulin 3.6 Albumin/Globulin Ratio 1.0 Code Status & VTE Plan Code Status Full Code VTE Prophylaxis Plan VTE Prophylaxis will be ordered: Yes Supervising Physician Co-Signing Physician Notes Patient seen and examined, chart reviewed, case discussed with Dr. Lloyd and I agree with his assessment and plan as documented above. Briefly, patient is a 59-year-old male presenting with progressive shortness of breath COPD exacerbation, unresponsive to outpatient therapy. He denies chest pain, palpitations. He does have a dry cough. He had recent COVID 19 testing performed for a planned cataract procedure which was negative on 10/20/2019. On exam patient afebrile, hemodynamically stable, tachypneic Skinwarm, dry, intact HEENTnormocephalic/atraumatic, pupils equal and reactive to light, extraocular muscles intact Heart+ S1/S2, regular, no murmur/rub/gallops Lungsmarkedly diminished airflow bilaterally, no rales/rhonchi/wheezes Abdomen+ bowel sounds, soft, nontender, nondistended Neuroawake alert and oriented x4, grossly nonfocal, tremulous Labs and images reviewed. Elevated d-dimer of 580 slightly below age-adjusted cut of. CTA with no evidence of PE. assessment/[id number] male presenting with presumed COPD exacerbation, no improvement with outpatient therapy Observation to medical floor Nebs, steroids, azithromycin per resident HPI Mucinex, flutter valve, incentive spirometry Encourage smoking cessation Remainder of plan as above Resident Activity Tracking Resident Involvement: Resident Care Provided Care Provided: Adult Hospital Medicine (1) BPH (benign prostatic hyperplasia) Lower urinary tract symptom presence: symptoms absent Qualified Code(s): N40.0 - Benign prostatic hyperplasia without lower urinary tract symptoms
--- NOTE | 2019-10-24 04:58 | Billing Data ---
Date of Service October 24, 2019 Coding Level of Care Code 46050 OBS Care - Level 2
[2019-10-24] MEDS ORDERED: MELATONIN 3 MG TAB PO PRN (05:55)
[2019-10-24] MEDS ORDERED: POLYETHYLENE (MIRALAX) 17 GM PACK PO PRN (05:55)
[2019-10-24] MEDS ORDERED: ONDANSETRON INJ 2 MG/ML 2 ML VIAL IV PRN (05:55)
[2019-10-24] MEDS ORDERED: AZITHROMYCIN 250 MG TAB PO ONE (05:55)
[2019-10-24] MEDS ORDERED: ALBUT/IPRATROP 3MG/0.5MG NEB 3 ML VIAL INH SCH (07:00)
[2019-10-24] MEDS: methylPREDNISolone 30 MG in SYRINGE 0 ML IV SCH ×3 (07:41→23:51)
[2019-10-24] MEDS: FLUTICASONE/VILANTEROL 100/25MCG 14 PUFFS/INHALER INH SCH (07:41)
[2019-10-24] MEDS: TAMSULOSIN HCL 0.4 MG CAP PO SCH (07:42)
[2019-10-24] MEDS: FAMOTIDINE 40 MG TABLET PO SCH (07:42)
[2019-10-24] MEDS: guaiFENesin 600 MG TABCR PO SCH ×2 (07:42→20:13)
[2019-10-24] MEDS: NICOTINE 7 MG/24 HR TDSY TD SCH (07:43)
[2019-10-24] MEDS: ENOXAPARIN INJ 40 MG/0.4 ML SYR SQ SCH (07:43)
--- NOTE | 2019-10-24 07:46 | CT Scan Report ---
CT ANGIOGRAPHY OF THE CHEST, PULMONARY EMBOLUS PROTOCOL CLINICAL HISTORY: Chest pain. Shortness of breath. COMPARISON STUDY: Chest CT September 01, 2019. Chest radiograph October 23, 2019. TECHNIQUE: Following IV administration of 119 mL of Optiray-320, helical axial images of the chest we re obtained utilizing the pulmonary embolus protocol. Maximal intensity projections and sagittal and coronal reformats were viewed on an independent 3D workstation. IV contrast was administered withou t complication. Automated exposure control was utilized for the study. A dose lowering technique wa s utilized adhering to the principles of ALARA. CT DOSE: 265.75 mGy.cm FINDINGS: No pulmonary emboli are identified. There is no thoracic aortic dissection. The size of th e heart is normal. There is moderate coronary artery calcification. There is no pericardial effusion. No enlarged thoracic lymph nodes are present. Severe emphysema is noted. Suspected large bulla withi n the left lower lobe are noted. There are postoperative findings within the left lower lobe. A locul ated pneumothorax could appear similar. This is unchanged since prior examination of September 01, 2019. Th ere is no consolidation to suggest pneumonia. There is mild bronchial wall thickening. No pleural eff usion is noted. Upper abdomen is unremarkable. IMPRESSION: 1. No pulmonary emboli identified. 2. No acute findings within the chest. 3. Severe emphysema. ACT 112: Negative or not required by law. Electronically signed by: Ari Gilbert M.D. 10/24/2019 7:44 AM
--- NOTE | 2019-10-24 07:52 | XRay Report ---
XR chest 1V portable CLINICAL HISTORY: Dyspnea COMPARISON STUDY: Chest CT September 01, 2019. FINDINGS: Lung hyperexpansion with underlying emphysema is noted. There is no pneumothorax or pleural effusion. There is no consolidation. Pulmonary vascularity is normal. Cardiac size is normal. Medias tinal contours are unremarkable. There are postoperative findings within the left lower lobe and left shoulder. IMPRESSION: 1. No acute cardiopulmonary findings. 2. Emphysema. ACT 112: Negative or not required by law. Electronically signed by: Ari Gilbert M.D. 10/24/2019 7:50 AM
--- NOTE | 2019-10-24 08:02 | Emergency Department Note ---
History of Present Illness General Chief complaint: Shortness of Breath/Dyspnea Stated complaint: COPD, SOB, CHEST TIGHTNESS LEFT SIDE Time Seen by Provider: 10/23/19 21:33 Source: patient Mode of arrival: ambulatory Limitations: no limitations History of Present Illness Maximum Pain Intensity: 2 This patient is a 59-year-old male who presents to the emergency department for evaluation of shortness of breath. The patient states that he has had worsening symptoms over the past 5 to 6 weeks, with more severe symptoms the past 3 days. He reports a pressure across his lower chest. He states the pressure is now left-sided. He states it is difficult to take a deep breath and he has some pain in his lower ribs when he takes a deep breath. The patient has used his nebulizers and inhalers without relief. He has been using Mucinex for a cough. Patient states that he uses 2 to 3 L of oxygen chronically at home. He is currently on prednisone which was prescribed by his primary care provider but this has not helped his symptoms. He states that his symptoms are worse when he is laying down or exerting himself. He states that he is unable to do much activity at all without becoming short of breath. He denies any fevers. He denies recent travel. He smokes 3 cigarettes/day. He does have a pending COVID test which was ordered for cataract surgery this week. Home Medications Home Medications Medication Instructions Recorded Confirmed Type fluticasone propion-salmeterol 1 puff INHALATION BID 01/08/18 10/23/19 History tiotropium bromide 1 puff INHALATION DAILY 01/08/18 10/23/19 History lorazepam 0.5 mg PO HS PRN #15 tab 08/02/18 10/23/19 Rx Portable Oxygen #1 ea 02/08/19 10/23/19 Rx albuterol sulfate 90 mcg/actuation 2 puffs INH Q6H PRN #8.5 gm 09/11/19 10/23/19 Rx aerosol inhaler albuterol sulfate 2.5 mg INH UD PRN 10/16/19 10/23/19 History guaifenesin [Mucinex] 400 mg PO BID 10/16/19 10/23/19 History prednisone 10 mg PO .TAPER UD 10/16/19 10/23/19 History tamsulosin [Flomax] 0.4 mg PO DAILY 10/16/19 10/23/19 History Allergies Allergy/AdvReac Type Severity Reaction Status Date / Time No Known Allergies Allergy Unverified 10/23/19 22:46 Past Med/Surg History Medical History Chronic respiratory failure PT NOT SURE COPD (chronic obstructive pulmonary disease) LAST FLARE UP JULY 2018 - COLLAPSED LUNG LEFT Enlarged prostate Oxygen dependent 24 HOURS A DAY, 2 L AT REST, 3 L WITH ACTIVITY Steroid-dependent COPD Tobacco abuse Surgical History History of colonoscopy History of lung surgery BLEB History of shoulder surgery LEFT Family History Father Family history non-contributory Social History Smoking Status: Current every day smoker Cigarettes Per Day: 3 CIGS/ PER DAY - ADVISED NPO; Second Hand Exposure: No; Do You Dip or Chew Tobacco: No; Hx Alcohol Use: No Hx Substance Use: No Preferred Language: [place] Citizen Communication Ability: Effective Cash Register Balancer Required: No Beliefs That Will Affect Care: None Current Living Situation: Family Current Living Situation Comment: lives with brother Feels Safe at Home: Yes Safety Concerns: Feels Safe At This Time Review of Systems A total of 10 systems reviewed and were otherwise negative Physical Exam Vital Signs Vital Signs - 24 hr 10/23/19 20:52 10/23/19 21:01 10/23/19 21:52 Temperature 37.1 C Temperature Source Oral Pulse Rate 87 85 Pulse Rate [Exercises] Pulse Rate [Right Finger] Pulse Rate from SpO2 Sensor 85 Pulse Rhythm [Right Finger] Respiratory Rate 20 Respiratory Rate [Exercises] Respiratory Effort / Characteristics Respiratory Depth Normal Blood Pressure 139/83 129/69 Blood Pressure [Right Arm] Blood Pressure Mean 101 77 Blood Pressure Mean [Right Arm] Blood Pressure Position [Right Arm] Pulse Oximetry 96 95 98 Pulse Oximetry [Exercises] Oxygen Delivery Method Nasal Cannula Nasal Cannula Nasal Cannula Oxygen Flow Rate 2 3 3 Sepsis Recent Fever Within 48 Hours No Sepsis New/Unexplained Change in Mental Status No Sepsis Action Taken by Nursing No Action Required 10/23/19 21:56 10/23/19 21:57 10/23/19 22:00 Temperature Temperature Source Pulse Rate 81 79 Pulse Rate [Exercises] Pulse Rate [Right Finger] Pulse Rate from SpO2 Sensor 81 80 Pulse Rhythm [Right Finger] Respiratory Rate Respiratory Rate [Exercises] Respiratory Effort / Characteristics Respiratory Depth Blood Pressure 124/85 Blood Pressure [Right Arm] Blood Pressure Mean 97 Blood Pressure Mean [Right Arm] Blood Pressure Position [Right Arm] Pulse Oximetry 98 96 98 Pulse Oximetry [Exercises] Oxygen Delivery Method Nasal Cannula Nasal Cannula Nasal Cannula Oxygen Flow Rate 3 3 3 Sepsis Recent Fever Within 48 Hours Sepsis New/Unexplained Change in Mental Status Sepsis Action Taken by Nursing 10/23/19 22:01 10/23/19 22:04 10/23/19 22:10 Temperature Temperature Source Pulse Rate 82 82 Pulse Rate [Exercises] Pulse Rate [Right Finger] Pulse Rate from SpO2 Sensor 83 82 Pulse Rhythm [Right Finger] Respiratory Rate 22 81 H Respiratory Rate [Exercises] Respiratory Effort / Characteristics Non-Labored Spontaneous Respiratory Depth Blood Pressure Blood Pressure [Right Arm] Blood Pressure Mean Blood Pressure Mean [Right Arm] Blood Pressure Position [Right Arm] Pulse Oximetry 98 98 99 Pulse Oximetry [Exercises] Oxygen Delivery Method Nasal Cannula Nasal Cannula Nasal Cannula Oxygen Flow Rate 3 3 3 Sepsis Recent Fever Within 48 Hours Sepsis New/Unexplained Change in Mental Status Sepsis Action Taken by Nursing 10/23/19 22:20 10/23/19 22:30 10/23/19 23:00 Temperature Temperature Source Pulse Rate 78 82 91 H Pulse Rate [Exercises] Pulse Rate [Right Finger] 77 Pulse Rate from SpO2 Sensor 78 82 Pulse Rhythm [Right Finger] Respiratory Rate 15 30 H 23 Respiratory Rate [Exercises] Respiratory Effort / Characteristics Respiratory Depth Normal Blood Pressure 115/57 L Blood Pressure [Right Arm] 110/92 Blood Pressure Mean 62 Blood Pressure Mean [Right Arm] 98 Blood Pressure Position [Right Arm] Lying Pulse Oximetry 97 97 Pulse Oximetry [Exercises] Oxygen Delivery Method Nasal Cannula Nasal Cannula Oxygen Flow Rate 3 2 Sepsis Recent Fever Within 48 Hours Sepsis New/Unexplained Change in Mental Status Sepsis Action Taken by Nursing 10/23/19 23:01 10/23/19 23:30 10/24/19 00:00 Temperature Temperature Source Pulse Rate 88 84 Pulse Rate [Exercises] Pulse Rate [Right Finger] Pulse Rate from SpO2 Sensor 87 82 72 Pulse Rhythm [Right Finger] Respiratory Rate 14 21 Respiratory Rate [Exercises] Respiratory Effort / Characteristics Respiratory Depth Blood Pressure 103/85 110/92 123/65 Blood Pressure [Right Arm] Blood Pressure Mean 101 100 82 Blood Pressure Mean [Right Arm] Blood Pressure Position [Right Arm] Pulse Oximetry 96 99 97 Pulse Oximetry [Exercises] Oxygen Delivery Method Oxygen Flow Rate Sepsis Recent Fever Within 48 Hours Sepsis New/Unexplained Change in Mental Status Sepsis Action Taken by Nursing 10/24/19 00:01 10/24/19 00:22 10/24/19 00:23 Temperature Temperature Source Pulse Rate Pulse Rate [Exercises] 90 Pulse Rate [Right Finger] Pulse Rate from SpO2 Sensor 75 81 Pulse Rhythm [Right Finger] Respiratory Rate Respiratory Rate [Exercises] 20 Respiratory Effort / Characteristics Respiratory Depth Blood Pressure 136/77 Blood Pressure [Right Arm] Blood Pressure Mean 106 Blood Pressure Mean [Right Arm] Blood Pressure Position [Right Arm] Pulse Oximetry 98 97 Pulse Oximetry [Exercises] 97 Oxygen Delivery Method Nasal Cannula Oxygen Flow Rate 2 Sepsis Recent Fever Within 48 Hours Sepsis New/Unexplained Change in Mental Status Sepsis Action Taken by Nursing 10/24/19 00:27 10/24/19 00:30 10/24/19 00:50 Temperature Temperature Source Pulse Rate Pulse Rate [Exercises] Pulse Rate [Right Finger] 90 78 Pulse Rate from SpO2 Sensor 78 Pulse Rhythm [Right Finger] Respiratory Rate 20 16 Respiratory Rate [Exercises] Respiratory Effort / Characteristics Non-Labored Spontaneous Respiratory Depth Normal Blood Pressure 123/70 Blood Pressure [Right Arm] 114/68 Blood Pressure Mean 84 Blood Pressure Mean [Right Arm] 83 Blood Pressure Position [Right Arm] Sitting Pulse Oximetry 94 98 97 Pulse Oximetry [Exercises] Oxygen Delivery Method Nasal Cannula Nasal Cannula Oxygen Flow Rate 2 2.5 Sepsis Recent Fever Within 48 Hours Sepsis New/Unexplained Change in Mental Status Sepsis Action Taken by Nursing 10/24/19 01:00 10/24/19 01:01 10/24/19 01:30 Temperature Temperature Source Pulse Rate Pulse Rate [Exercises] Pulse Rate [Right Finger] Pulse Rate from SpO2 Sensor 78 75 80 Pulse Rhythm [Right Finger] Respiratory Rate Respiratory Rate [Exercises] Respiratory Effort / Characteristics Respiratory Depth Blood Pressure 123/69 109/66 Blood Pressure [Right Arm] Blood Pressure Mean 76 81 Blood Pressure Mean [Right Arm] Blood Pressure Position [Right Arm] Pulse Oximetry 100 99 98 Pulse Oximetry [Exercises] Oxygen Delivery Method Oxygen Flow Rate Sepsis Recent Fever Within 48 Hours Sepsis New/Unexplained Change in Mental Status Sepsis Action Taken by Nursing 10/24/19 02:00 10/24/19 02:01 10/24/19 02:10 Temperature Temperature Source Pulse Rate Pulse Rate [Exercises] Pulse Rate [Right Finger] 75 Pulse Rate from SpO2 Sensor 79 78 Pulse Rhythm [Right Finger] Respiratory Rate 18 Respiratory Rate [Exercises] Respiratory Effort / Characteristics Respiratory Depth Normal Blood Pressure 113/68 Blood Pressure [Right Arm] 114/70 Blood Pressure Mean 77 Blood Pressure Mean [Right Arm] 84 Blood Pressure Position [Right Arm] Sitting Pulse Oximetry 98 98 97 Pulse Oximetry [Exercises] Oxygen Delivery Method Nasal Cannula Oxygen Flow Rate 2 Sepsis Recent Fever Within 48 Hours Sepsis New/Unexplained Change in Mental Status Sepsis Action Taken by Nursing 10/24/19 02:30 10/24/19 03:00 10/24/19 03:01 Temperature Temperature Source Pulse Rate Pulse Rate [Exercises] Pulse Rate [Right Finger] Pulse Rate from SpO2 Sensor 78 72 74 Pulse Rhythm [Right Finger] Respiratory Rate Respiratory Rate [Exercises] Respiratory Effort / Characteristics Respiratory Depth Blood Pressure 118/63 122/66 Blood Pressure [Right Arm] Blood Pressure Mean 82 87 Blood Pressure Mean [Right Arm] Blood Pressure Position [Right Arm] Pulse Oximetry 97 97 97 Pulse Oximetry [Exercises] Oxygen Delivery Method Oxygen Flow Rate Sepsis Recent Fever Within 48 Hours Sepsis New/Unexplained Change in Mental Status Sepsis Action Taken by Nursing 10/24/19 03:18 10/24/19 04:00 10/24/19 04:54 Temperature Temperature Source Pulse Rate 76 73 Pulse Rate [Exercises] Pulse Rate [Right Finger] 87 Pulse Rate from SpO2 Sensor 76 71 Pulse Rhythm [Right Finger] Regular Respiratory Rate 24 28 H 18 Respiratory Rate [Exercises] Respiratory Effort / Characteristics Respiratory Depth Blood Pressure 127/68 Blood Pressure [Right Arm] 124/65 Blood Pressure Mean 89 Blood Pressure Mean [Right Arm] 84 Blood Pressure Position [Right Arm] Lying Pulse Oximetry 98 98 96 Pulse Oximetry [Exercises] Oxygen Delivery Method Nasal Cannula Oxygen Flow Rate Sepsis Recent Fever Within 48 Hours Sepsis New/Unexplained Change in Mental Status Sepsis Action Taken by Nursing VITALS: Vitals are noted on the nurse's note and reviewed by myself. Vital signs stable. GENERAL: This is a 59-year-old male, sitting up in bed, thin and cachectic appearing. SKIN: The skin was without rashes. EARS: External auditory canals clear, tympanic membranes pearly baldwin without erythema or effusion bilaterally. EYES: Pupils equal round and reactive to light and accommodation. NOSE: Patent, turbinates without inflammation or discharge. No sinus tenderness. MOUTH: Mucous membranes moist. Tonsils are not enlarged. Pharynx without eryt liborio or exudate. NECK: Supple without nuchal rigidity. No lymphadenopathy. HEART: Regular rate and rhythm without murmurs gallops or rubs. LUNGS: Decreased air movement throughout with inspiratory and expiratory wheezes heard throughout all lung chen. No retractions or accessory muscle use. EXTREMITIES: No edema. No calf tenderness. NEURO: Patient was alert and oriented to person place and time. Course Reevaluation(s) Reevaluation #1: Patient was reevaluated and states he is still feeling very short of breath. An additional DuoNeb as well as IV Solu-Medrol were ordered. Reevaluation #2: Patient was reevaluated and states that he feels even worse than when he came in. He does not feel safe to be discharged home due to his shortness of breath. Consultations Consultation #1: Dr. Rodrigo MAI hospitalist Administered Medications Albuterol (Albut/Ipratrop 3mg/0.5mg Neb 3 Ml Vial) 3 ml INH Q6R HOWARD Stop: 11/23/19 06:59 Last Admin: 10/24/19 07:21 Dose: 3 ml Documented by: [id number] Enoxaparin Sodium (Enoxaparin Inj 40 Mg/0.4 Ml Syr) 40 mg SQ Q24H HOWARD Stop: 11/23/19 07:59 Last Admin: 10/24/19 07:43 Dose: 40 mg Documented by: [id number] Famotidine (Famotidine 40 Mg Tablet) 40 mg PO QAM HOWARD Stop: 11/23/19 08:59 Last Admin: 10/24/19 07:42 Dose: 40 mg Documented by: [id number] Fluticasone/Vilanterol (Fluticasone/Vilanterol 100/25mcg 14 Puffs/Inhaler) 1 puffs INH DAILY HOWARD Stop: 11/23/19 08:59 Last Admin: 10/24/19 07:41 Dose: 1 puffs Documented by: [id number] Guaifenesin (Guaifenesin 600 Mg Tabcr) 1,200 mg PO BID HOWARD Stop: 11/23/19 08:59 Last Admin: 10/24/19 07:42 Dose: 1,200 mg Documented by: [id number] Methylprednisolone 30 mg/ (Syringe) 0.48 mls @ 1.5 mls/min IV Q8H HOWARD Stop: 11/23/19 07:59 Last Admin: 10/24/19 07:41 Dose: 1.5 mls/min Documented by: [id number] Nicotine (Nicotine 7 Mg/24 Hr Tdsy) 7 mg TD QAM HOWARD Stop: 11/23/19 08:59 Last Admin: 10/24/19 07:43 Dose: 7 mg Documented by: [id number] Tamsulosin HCl (Tamsulosin Hcl 0.4 Mg Cap) 0.4 mg PO DAILY HOWARD Stop: 11/23/19 08:59 Last Admin: 10/24/19 07:42 Dose: 0.4 mg Documented by: [id number] Discontinued Medications Albuterol (Albut/Ipratrop 3mg/0.5mg Neb 3 Ml Vial) 3 ml NEB NOW STA Stop: 10/23/19 21:48 Last Admin: 10/23/19 22:04 Dose: 3 ml Documented by: [id number] Albuterol (Albut/Ipratrop 3mg/0.5mg Neb 3 Ml Vial) 3 ml NEB NOW STA Stop: 10/24/19 00:41 Last Admin: 10/24/19 00:50 Dose: 3 ml Documented by: [id number] Azithromycin (Azithromycin 250 Mg Tab) 500 mg PO NOW ONE Stop: 10/24/19 05:56 Last Admin: 10/24/19 06:32 Dose: 500 mg Documented by: [id number] Ioversol (Optiray 320 125ml) 119 ml IV ONCE ONE Stop: 10/23/19 23:33 Last Admin: 10/23/19 23:33 Dose: 119 ml Documented by: [id number] Methylprednisolone (Methylprednisolone 125 Mg/2 Ml Vial) 125 mg IV NOW STA Stop: 10/24/19 00:41 Last Admin: 10/24/19 01:15 Dose: 125 mg Documented by: [id number] Medical Decision Making Differential Diagnosis Reactive airway disease, pneumonia, pneumothorax, COPD, CHF, infections, cardiac ischemia, pulmonary embolism, musculoskeletal, gastrointestinal, as well as other pathologies. Medical Records Attestation: I reviewed the patient's medical records. Home Medications Current Medication List: was personally reviewed by me Laboratory Data Attestation: I reviewed the patient's lab results. Result diagrams: 10/23/19 21:55 10/23/19 21:55 Lab Results 10/23/19 10/23/19 10/23/19 Range/Units 21:55 21:55 21:55 WBC 9.00 (4.8-10.8) K/uL RBC 4.41 L (4.7-6.1) M/uL Hgb 14.1 (14.0-18.0) g/dL Hct 45.0 (42-52) % MCV 102.0 H (80-100) fL MCH 32.0 (25-34) pg MCHC 31.3 L (32-36) g/dL RDW Std Deviation 47.9 H (36.4-46.3) fL RDW Coeff of Renato 12.8 (11.5-14.5) % Plt Count 382 (130-400) K/uL MPV 9.9 (7.4-10.4) fL Immature Gran % (Auto) 0.2 % Neut % (Auto) 89.6 % Lymph % (Auto) 6.2 % [place] % (Auto) 3.9 % Eos % (Auto) 0.0 % Baso % (Auto) 0.1 % Neut # (Auto) 8.06 H (1.4-6.5) K/uL Lymph # (Auto) 0.56 L (1.2-3.4) K/uL [place] # (Auto) 0.35 (0.11-0.59) K/uL Eos # (Auto) 0.00 (0-0.5) K/uL Baso # (Auto) 0.01 (0-0.2) K/uL Immature Gran # (Auto) 0.02 (0.00-0.02) K/uL PT 10.5 (9.0-12.0) Seconds INR 1.0 (0.9-1.1) APTT 25.1 (21.0-31.0) Seconds PTT Ratio 0.9 D-Dimer 580 H* (0-500) ug/L FEU Sodium 138 (136-145) mmol/L Potassium 4.5 (3.5-5.1) mmol/L Chloride 99 (98-107) mmol/L Carbon Dioxide 39 H (21-32) mmol/L Anion Gap 0 L (3-11) BUN 3 L (7-18) mg/dl Creatinine 0.69 (0.6-1.4) mg/dl Est Cr Clr Drug Dosing Not Reportable Est GFR ( Amer) 120.4 Est GFR (Non-Af Amer) 103.9 BUN/Creatinine Ratio 4.8 L (10-20) Glucose 108 H (70-99) mg/dl Calcium 9.6 (8.5-10.1) mg/dl Total Bilirubin 0.4 (0.2-1) mg/dl AST 13 L (15-37) U/L ALT 14 (12-78) U/L Alkaline Phosphatase 67 (45-117) U/L Troponin I < 0.015 (0-0.045) ng/ml Total Protein 7.3 (6.4-8.2) gm/dl Albumin 3.7 (3.4-5.0) gm/dl Globulin 3.6 (2.5-4.0) gm/dl Albumin/Globulin Ratio 1.0 (0.9-2) Imaging Data Attestation: I personally reviewed and interpreted this imaging study as fol lows: My Impression: CHEST 1 VIEW: Emphysema, no acute findings Radiologist's Impression: CTA CHEST: The pulmonary arterial tree is well-opacified with contrast. No pulmonary emboli are identified. The thoracic aorta is mildly calcified but nondilated. There is no aneurysm or dissection. The heart is borderline enlarged. Moderate coronary calcification is present. No pericardial effusion is seen. No mediastinal or axillary lymph adenopathy or mass is seen. Mild to moderate emphysematous changes are seen throughout both lungs greatest in the upper lobes bilaterally. There are several bulla in the left mid lung measuring up to 6 cm posteriorly. No pneumothorax or pleural effusion is seen. No acute distress infiltrate is identified. Moderate multilevel degenerative changes in the thoracic spine including chronic appearing 15% compression fractures at T6 and L1.. No acute compression fracture or subluxation is seen. Radiologist: Davin Wallace MD ECG Data Attestation: I personally reviewed and interpreted this ECG as follows: Indication: + SOB/dyspnea Rate (beats per minute): 77 Rhythm: + normal sinus ECG Intervals/blocks: + Short SC ECG ST segments: + Nonspecific ST abnormalities Change: no significant change Blood Pressure Blood Pressure Findings: Normal blood pressure MDM Narrative The patient is a 59-year-old male with past medical history of COPD who presents today complaining of shortness of breath. Labs revealed no leukocytosis, anemia or concerning electrolyte abnormalities. Troponin was not elevated. D- dimer was found to be elevated at 580. CT scan of the chest showed no evidence of PE. Patient was treated with DuoNeb x2, IV Solu-Medrol. He did not become hypoxic, however he felt extremely short of breath even with very little exertion. I do feel there is an element of deconditioning, as patient states that he has been very sedentary for the past several weeks after the of his mother. The patient does not feel comfortable being discharged home. He does not feel he can safely take care of himself due to his shortness of breath. [facility] the patient for further care. Impression & Plan Shortness of breath on exertion, COPD exacerbation Discharge Plan Visit Data Chief Complaint: Shortness of Breath/Dyspnea Stated Complaint: COPD, SOB, CHEST TIGHTNESS LEFT SIDE ED Provider: Juan Lewis ED Midlevel Provider: Era Lin Discharge Problem: Shortness of breath on exertion, COPD exacerbation Patient Disposition: Admitted As Inpatient Discharge Instructions Interventions: ED Discharge Assessment Last Done: 10/24/19 05:44
--- NOTE | 2019-10-24 08:42 | Electrocardiogram Report ---
Test Reason : Blood Pressure : / mmHG Vent. Rate : 077 BPM Atrial Rate : 077 BPM P-R Int : 108 ms QRS Dur : 098 ms QT Int : 348 ms P-R-T Axes : 076 094 080 degrees QTc Int : 393 ms Poor data quality, interpretation may be adversely affected Sinus rhythm with short MT Rightward axis Minor Anterior ST elevation, most consistent with repolarization variant Borderline ECG When compared with ECG of 06-AUG-2018 15:03, No significant change Confirmed by Saad Ignacio ([id number]) on 10/24/2019 8:41:58 AM Referred By: REFERRED SELF Confirmed By:Saad Ignacio
[2019-10-24] MEDS: ALBUT/IPRATROP 3MG/0.5MG NEB 3 ML VIAL INH SCH ×4 (11:15→22:51)
--- NOTE | 2019-10-24 12:32 | Hospitalist Progress Note ---
Date of Service October 24, 2019 Assessment & Plan (1) COPD exacerbation: Gibson Vazquez is a 59 y/o male with past medical hx of COPD, cataracts, chronic respiratory failure with hypoxia and hypercapnia, weight loss, pulmonary nodule who presents for dyspnea with acute COPD exacerbation. COPD Exacerbation - failed outpt oral pred - solumedrol 125mg IV, duoneb x2 in ED - CTA chest: negative for PE, moderate emphysema, several bulla, no pneumothorax - Duonebs Q4, continue home spiriva 1 puff daily, home advair 250/60 - home O2 requirement of 2L at rest - azithromycin 500 in ED, 250 x4 days - Pulmonary toilet, mucinex/flutter valve/incentive spirometry - obtain last PFT results. - smoking relapse: smoking cessation counseling Malnutrition - Platform Material Handler Manager consult for poor intake and caloric improvement - PT/OT to build strength BPH - home flomax 0.4mg daily DVT ppx: Lovenox 40mg SQ daily Dispo: Med/surg tele Obs Code: full FEN/GI: Regular diet, Pepcid 40mg PO daily (2) BPH (benign prostatic hyperplasia): (3) Tobacco abuse: Admission and Anticipated Discharge Date Admission Date: October 24, 2019 Supervising Physician Co-Signing Physician Notes Resident Physician Supervision Note: I independently interviewed and examined the patient and verified the mcnair history and physical, reviewed labs and image studies, discussed the case with the resident Dr. Elena and agree with the findings and care plan. Subjective Still feeling short of breath, more than usual. No notable improvement between admission last night and this morning. No pain with deep inspiration, no chest pain. Review of Systems Respiratory: + cough, + change in sputum, + dyspnea and + wheezing; no pain on inspiration and no sputum production Cardiovascular: + dyspnea on exertion; no chest pain Gastrointestinal: + constipation Physical Exam Constitutional: + thin; no acute distress Respiratory: thin barrel chest, inspiratory and expiratory wheezing, no cough, good air movement throughout Cardiovascular: RRR, no murmur, no edema Results & Data Results & Data ([facility]) Vital Signs (Past 12 Hours) Vital Signs Temp Pulse Pulse Resp BP BP Pulse Ox 10/24/19 11:15 83 18 96 10/24/19 10:48 36.4 C L 84 19 127/66 94 10/24/19 07:21 78 18 97 10/24/19 07:18 36.6 C 74 19 107/62 96 10/24/19 07:14 79 10/24/19 05:57 36.7 C 76 20 132/76 97 10/24/19 05:44 124/76 96 10/24/19 04:54 87 18 124/65 96 10/24/19 04:00 73 28 H 98 10/24/19 03:18 76 24 127/68 98 10/24/19 03:01 97 10/24/19 03:00 122/66 97 10/24/19 02:30 118/63 97 10/24/19 02:10 75 18 114/70 97 10/24/19 02:01 98 10/24/19 02:00 113/68 98 10/24/19 01:30 109/66 98 10/24/19 01:01 99 10/24/19 01:00 123/69 100 10/24/19 00:50 78 16 97 Laboratory Results WBC 9.00 K/uL (4.8-10.8) 10/23/19 21:55 RBC 4.41 M/uL (4.7-6.1) L 10/23/19 21:55 Hgb 14.1 g/dL (14.0-18.0) 10/23/19 21:55 Hct 45.0 % (42-52) 10/23/19 21:55 MCV 102.0 fL (80-100) H 10/23/19 21:55 MCH 32.0 pg (25-34) 10/23/19 21:55 MCHC 31.3 g/dL (32-36) L 10/23/19 21:55 RDW Std Deviation 47.9 fL (36.4-46.3) H 10/23/19 21:55 RDW Coeff of Renato 12.8 % (11.5-14.5) 10/23/19 21:55 Plt Count 382 K/uL (130-400) 10/23/19 21:55 MPV 9.9 fL (7.4-10.4) 10/23/19 21:55 Immature Gran % (Auto) 0.2 % 10/23/19 21:55 Neut % (Auto) 89.6 % 10/23/19 21:55 Lymph % (Auto) 6.2 % 10/23/19 21:55 [place] % (Auto) 3.9 % 10/23/19 21:55 Eos % (Auto) 0.0 % 10/23/19 21:55 Baso % (Auto) 0.1 % 10/23/19 21:55 Neut # (Auto) 8.06 K/uL (1.4-6.5) H 10/23/19 21:55 Lymph # (Auto) 0.56 K/uL (1.2-3.4) L 10/23/19 21:55 Webb # (Auto) 0.35 K/uL (0.11-0.59) 10/23/19 21:55 Eos # (Auto) 0.00 K/uL (0-0.5) 10/23/19 21:55 Baso # (Auto) 0.01 K/uL (0-0.2) 10/23/19 21:55 Immature Gran # (Auto) 0.02 K/uL (0.00-0.02) 10/23/19 21:55 PT 10.5 Seconds (9.0-12.0) 10/23/19 21:55 INR 1.0 (0.9-1.1) 10/23/19 21:55 APTT 25.1 Seconds (21.0-31.0) 10/23/19 21:55 PTT Ratio 0.9 10/23/19 21:55 D-Dimer 580 ug/L FEU (0-500) H* 10/23/19 21:55 Sodium 138 mmol/L (136-145) 10/23/19 21:55 Potassium 4.5 mmol/L (3.5-5.1) 10/23/19 21:55 Chloride 99 mmol/L (98-107) 10/23/19 21:55 Carbon Dioxide 39 mmol/L (21-32) H 10/23/19 21:55 Anion Gap 0 (3-11) L 10/23/19 21:55 BUN 3 mg/dl (7-18) L 10/23/19 21:55 Creatinine 0.69 mg/dl (0.6-1.4) 10/23/19 21:55 Est Cr Clr Drug Dosing Not Reportable 10/23/19 21:55 Est GFR ( Amer) 120.4 10/23/19 21:55 Est GFR (Non-Af Amer) 103.9 10/23/19 21:55 BUN/Creatinine Ratio 4.8 (10-20) L 10/23/19 21:55 Glucose 108 mg/dl (70-99) H 10/23/19 21:55 Calcium 9.6 mg/dl (8.5-10.1) 10/23/19 21:55 Total Bilirubin 0.4 mg/dl (0.2-1) 10/23/19 21:55 AST 13 U/L (15-37) L 10/23/19 21:55 ALT 14 U/L (12-78) 10/23/19 21:55 Alkaline Phosphatase 67 U/L (45-117) 10/23/19 21:55 Troponin I < 0.015 ng/ml (0-0.045) 10/23/19 21:55 Total Protein 7.3 gm/dl (6.4-8.2) 10/23/19 21:55 Albumin 3.7 gm/dl (3.4-5.0) 10/23/19 21:55 Globulin 3.6 gm/dl (2.5-4.0) 10/23/19 21:55 Albumin/Globulin Ratio 1.0 (0.9-2) 10/23/19 21:55 Resident Activity Tracking Resident Involvement: Resident Care Provided Care Provided: Adult Hospital Medicine (1) BPH (benign prostatic hyperplasia) Lower urinary tract symptom presence: symptoms absent Qualified Code(s): N40.0 - Benign prostatic hyperplasia without lower urinary tract symptoms
[2019-10-25] MEDS: ALBUT/IPRATROP 3MG/0.5MG NEB 3 ML VIAL INH SCH ×6 (03:21→23:24)
[2019-10-25] MEDS: ALBUTEROL 0.5% NEB SOLN 2.5 MG/0.5 ML VIAL NEB PRN (03:29)
[2019-10-25] MEDS: guaiFENesin 600 MG TABCR PO SCH ×2 (08:09→20:14)
[2019-10-25] MEDS: AZITHROMYCIN 250 MG TAB PO SCH (08:09)
[2019-10-25] MEDS: methylPREDNISolone 30 MG in SYRINGE 0 ML IV SCH ×3 (08:09→23:45)
[2019-10-25] MEDS: NICOTINE 7 MG/24 HR TDSY TD SCH (08:09)
[2019-10-25] MEDS: FLUTICASONE/VILANTEROL 100/25MCG 14 PUFFS/INHALER INH SCH (08:10)
[2019-10-25] MEDS: ENOXAPARIN INJ 40 MG/0.4 ML SYR SQ SCH (08:10)
[2019-10-25] MEDS: TAMSULOSIN HCL 0.4 MG CAP PO SCH (08:10)
[2019-10-25] MEDS: FAMOTIDINE 40 MG TABLET PO SCH (08:10)
--- NOTE | 2019-10-25 08:33 | Hospitalist Progress Note ---
Date of Service October 25, 2019 Assessment & Plan (1) COPD exacerbation: Gibson Vazquez is a 59 y/o male with past medical hx of COPD, cataracts, chronic respiratory failure with hypoxia and hypercapnia, weight loss, pulmonary nodule who presents for dyspnea with acute COPD exacerbation. COPD Exacerbation - CTA chest: negative for PE, moderate emphysema, several bulla, no pneumothorax - IV steroids. - azithromycin 500 in ED, 250 x4 days - continue Duonebs Q4, continue home spiriva 1 puff daily, home advair 250/60 - Pulmonary toilet, mucinex/flutter valve/incentive spirometry - unable to find PFT results in EMR - smoking relapse: smoking cessation counseling Chronic Respiratory failure - home O2 requirement of 2L at rest Malnutrition - Computer Security Coordinator consult for poor intake and caloric improvement - PT/OT to build strength BPH - home flomax 0.4mg daily DVT ppx: Lovenox 40mg SQ daily Dispo: Med/surg tele Obs Code: full FEN/GI: Regular diet, Pepcid 40mg PO daily Admission and Anticipated Discharge Date Admission Date: October 24, 2019 Supervising Physician Co-Signing Physician Notes Resident Physician Supervision Note: I independently interviewed and examined the patient and verified the mcnair history and physical, reviewed labs and image studies, discussed the case with the resident Dr. Elena and agree with the findings and care plan. Subjective No acute complaints today, continues to wheeze but has been coughing up more mucus. Review of Systems Constitutional: no fever and no chills Respiratory: + cough, + dyspnea and + sputum production Physical Exam Respiratory: Thin barrel chest, inspiratory and expiratory wheezing, coughing with phlegm production Results & Data Results & Data ([facility]) Vital Signs (Past 12 Hours) Vital Signs Temp Pulse Pulse Resp BP BP Pulse Ox 10/25/19 07:15 36.8 C 81 18 122/62 97 10/25/19 07:13 77 18 10/25/19 07:09 77 10/25/19 03:21 82 20 97 10/25/19 02:45 36.7 C 79 18 120/69 97 10/25/19 00:01 79 10/24/19 22:53 68 18 96 10/24/19 22:40 37.0 C 83 20 122/70 96 Laboratory Results WBC 9.00 K/uL (4.8-10.8) 10/23/19 21:55 RBC 4.41 M/uL (4.7-6.1) L 10/23/19 21:55 Hgb 14.1 g/dL (14.0-18.0) 10/23/19 21:55 Hct 45.0 % (42-52) 10/23/19 21:55 MCV 102.0 fL (80-100) H 10/23/19 21:55 MCH 32.0 pg (25-34) 10/23/19 21: MCHC 31.3 g/dL (32-36) L 10/23/19 21:55 RDW Std Deviation 47.9 fL (36.4-46.3) H 10/23/19 21:55 RDW Coeff of Renato 12.8 % (11.5-14.5) 10/23/19 21: Plt Count 382 K/uL (130-400) 10/23/19 21: MPV 9.9 fL (7.4-10.4) 10/23/19 21:55 Immature Gran % (Auto) 0.2 % 10/23/19 21:55 Neut % (Auto) 89.6 % 10/23/19 21:55 Lymph % (Auto) 6.2 % 10/23/19 21:55 [place] % (Auto) 3.9 % 10/23/19 21:55 Eos % (Auto) 0.0 % 10/23/19 21: Baso % (Auto) 0.1 % 10/23/19 21: Neut # (Auto) 8.06 K/uL (1.4-6.5) H 10/23/19 21:55 Lymph # (Auto) 0.56 K/uL (1.2-3.4) L 10/23/19 21:55 [place] # (Auto) 0.35 K/uL (0.11-0.59) 10/23/19 21:55 Eos # (Auto) 0.00 K/uL (0-0.5) 10/23/19 21:55 Baso # (Auto) 0.01 K/uL (0-0.2) 10/23/19 21:55 Immature Gran # (Auto) 0.02 K/uL (0.00-0.02) 10/23/19 21:55 PT 10.5 Seconds (9.0-12.0) 10/23/19 21:55 INR 1.0 (0.9-1.1) 10/23/19 21:55 APTT 25.1 Seconds (21.0-31.0) 10/23/19 21:55 PTT Ratio 0.9 10/23/19 21:55 D-Dimer 580 ug/L FEU (0-500) H* 10/23/19 21:55 Sodium 138 mmol/L (136-145) 10/23/19 21:55 Potassium 4.5 mmol/L (3.5-5.1) 10/23/19 21:55 Chloride 99 mmol/L (98-107) 10/23/19 21:55 Carbon Dioxide 39 mmol/L (21-32) H 10/23/19 21:55 Anion Gap 0 (3-11) L 10/23/19 21:55 BUN 3 mg/dl (7-18) L 10/23/19 21:55 Creatinine 0.69 mg/dl (0.6-1.4) 10/23/19 21:55 Est Cr Clr Drug Dosing Not Reportable 10/23/19 21:55 Est GFR ( Amer) 120.4 10/23/19 21:55 Est GFR (Non-Af Amer) 103.9 10/23/19 21:55 BUN/Creatinine Ratio 4.8 (10-20) L 10/23/19 21:55 Glucose 108 mg/dl (70-99) H 10/23/19 21:55 Calcium 9.6 mg/dl (8.5-10.1) 10/23/19 21:55 Total Bilirubin 0.4 mg/dl (0.2-1) 10/23/19 21:55 AST 13 U/L (15-37) L 10/23/19 21:55 ALT 14 U/L (12-78) 10/23/19 21:55 Alkaline Phosphatase 67 U/L (45-117) 10/23/19 21:55 Troponin I < 0.015 ng/ml (0-0.045) 10/23/19 21:55 Total Protein 7.3 gm/dl (6.4-8.2) 10/23/19 21:55 Albumin 3.7 gm/dl (3.4-5.0) 10/23/19 21:55 Globulin 3.6 gm/dl (2.5-4.0) 10/23/19 21:55 Albumin/Globulin Ratio 1.0 (0.9-2) 10/23/19 21:55 Resident Activity Tracking Resident Involvement: Resident Care Provided Care Provided: [facility] Medicine
[2019-10-25] MEDS: ACETAMINOPHEN 325 MG TAB PO PRN (20:13)
[2019-10-26] MEDS: ALBUT/IPRATROP 3MG/0.5MG NEB 3 ML VIAL INH SCH ×4 (03:09→23:14)
[2019-10-26] MEDS: FLUTICASONE/VILANTEROL 100/25MCG 14 PUFFS/INHALER INH SCH (09:48)
[2019-10-26] MEDS: FAMOTIDINE 40 MG TABLET PO SCH (09:49)
[2019-10-26] MEDS: AZITHROMYCIN 250 MG TAB PO SCH (09:50)
[2019-10-26] MEDS: guaiFENesin 600 MG TABCR PO SCH ×2 (09:50→20:30)
[2019-10-26] MEDS: TAMSULOSIN HCL 0.4 MG CAP PO SCH (09:50)
[2019-10-26] MEDS: methylPREDNISolone 15 MG in SYRINGE 0 ML IV SCH ×2 (09:50→20:31)
[2019-10-26] MEDS: ENOXAPARIN INJ 40 MG/0.4 ML SYR SQ SCH (09:51)
[2019-10-26] MEDS: NICOTINE 7 MG/24 HR TDSY TD SCH (09:51)
--- NOTE | 2019-10-26 11:00 | Hospitalist Progress Note ---
Date of Service October 26, 2019 Assessment & Plan (1) COPD exacerbation: Gibson Vazquez is a 59 y/o male with past medical hx of COPD, cataracts, chronic respiratory failure with hypoxia and hypercapnia, weight loss, pulmonary nodule who presents for dyspnea with acute COPD exacerbation. COPD Exacerbation - CTA chest: negative for PE, moderate emphysema, several bulla, no pneumothorax - IV steroids - azithromycin 500 in ED, 250 x4 days - Duonebs spaced to Q6 with Q2 PRN, continue home spiriva 1 puff daily, home advair 250/60 - Pulmonary toilet, mucinex/flutter valve/incentive spirometry, added Chest PT for mucus dissolution - unable to find PFT results in EMR - smoking relapse: smoking cessation counseling - slow improvement - continue current management. Chronic Respiratory failure - home O2 requirement of 2L at rest Malnutrition - Regional Vice President Surgical Sales consult for poor intake and caloric improvement - PT/OT to build strength BPH - home flomax 0.4mg daily DVT ppx: Lovenox 40mg SQ daily Dispo: Med/surg tele admit Code: full FEN/GI: Regular diet, Pepcid 40mg PO daily Admission and Anticipated Discharge Date Admission Date: October 26, 2019 Supervising Physician Co-Signing Physician Notes Resident Physician Supervision Note: I independently interviewed and examined the patient and verified the mcnair histor y and physical, reviewed labs and image studies, discussed the case with the resident Dr. Elena and agree with the findings and care plan. Subjective continues to feel short of breath at rest and with exertion. Using flutter valve, mucinex, incentive spirometry and still unable to produce phlegm despite coughing and feeling the mucus break up in his chest. Review of Systems Respiratory: + cough, + dyspnea on exertion and + pain on inspiration; no change in sputum, no pain with cough and no sputum production Cardiovascular: no chest pain with activity, no palpitations and no edema Physical Exam Respiratory: + audible wheezes and symmetric chest movement; no respiratory distress, does not use accessory muscles, + not able to speak in complete sentence, not tachypneic and no tripod positioning Auscultation: + wheezes (inspiratory and expiratory throughout); no diminished lung sounds, no crackles, no rales, no rhonchi and no pleural rub Results & Data Results & Data ([facility]) Vital Signs (Past 12 Hours) Vital Signs Temp Pulse Pulse Resp BP BP Pulse Ox 10/26/19 07:47 36.9 C 89 20 123/53 L 96 10/26/19 07:01 94 H 18 98 10/26/19 04:06 36.5 C 98 H 18 151/71 H 94 10/26/19 03:09 94 H 20 96 10/26/19 01:26 78 10/25/19 23:24 64 18 96 10/25/19 23:02 36.8 C 81 18 113/63 97 Laboratory Results WBC 9.00 K/uL (4.8-10.8) 10/23/19 21:55 RBC 4.41 M/uL (4.7-6.1) L 10/23/19 21:55 Hgb 14.1 g/dL (14.0-18.0) 10/23/19 21:55 Hct 45.0 % (42-52) 10/23/19 21:55 MCV 102.0 fL (80-100) H 10/23/19 21:55 MCH 32.0 pg (25-34) 10/23/19 21:55 MCHC 31.3 g/dL (32-36) L 10/23/19 21:55 RDW Std Deviation 47.9 fL (36.4-46.3) H 10/23/19 21:55 RDW Coeff of Renato 12.8 % (11.5-14.5) 10/23/19 21:55 Plt Count 382 K/uL (130-400) 10/23/19 21:55 MPV 9.9 fL (7.4-10.4) 10/23/19 21:55 Immature Gran % (Auto) 0.2 % 10/23/19 21:55 Neut % (Auto) 89.6 % 10/23/19 21:55 Lymph % (Auto) 6.2 % 10/23/19 21:55 [place] % (Auto) 3.9 % 10/23/19 21:55 Eos % (Auto) 0.0 % 10/23/19 21:55 Baso % (Auto) 0.1 % 10/23/19 21:55 Neut # (Auto) 8.06 K/uL (1.4-6.5) H 10/23/19 21:55 Lymph # (Auto) 0.56 K/uL (1.2-3.4) L 10/23/19 21:55 [place] # (Auto) 0.35 K/uL (0.11-0.59) 10/23/19 21:55 Eos # (Auto) 0.00 K/uL (0-0.5) 10/23/19 21:55 Baso # (Auto) 0.01 K/uL (0-0.2) 10/23/19 21:55 Immature Gran # (Auto) 0.02 K/uL (0.00-0.02) 10/23/19 21:55 PT 10.5 Seconds (9.0-12.0) 10/23/19 21:55 INR 1.0 (0.9-1.1) 10/23/19 21:55 APTT 25.1 Seconds (21.0-31.0) 10/23/19 21:55 PTT Ratio 0.9 10/23/19 21:55 D-Dimer 580 ug/L FEU (0-500) H* 10/23/19 21:55 Sodium 138 mmol/L (136-145) 10/23/19 21:55 Potassium 4.5 mmol/L (3.5-5.1) 10/23/19 21:55 Chloride 99 mmol/L (98-107) 10/23/19 21:55 Carbon Dioxide 39 mmol/L (21-32) H 10/23/19 21:55 Anion Gap 0 (3-11) L 10/23/19 21:55 BUN 3 mg/dl (7-18) L 10/23/19 21:55 Creatinine 0.69 mg/dl (0.6-1.4) 10/23/19 21:55 Est Cr Clr Drug Dosing Not Reportable 10/23/19 21:55 Est GFR ( Amer) 120.4 10/23/19 21:55 Est GFR (Non-Af Amer) 103.9 10/23/19 21:55 BUN/Creatinine Ratio 4.8 (10-20) L 10/23/19 21:55 Glucose 108 mg/dl (70-99) H 10/23/19 21:55 Calcium 9.6 mg/dl (8.5-10.1) 10/23/19 21:55 Total Bilirubin 0.4 mg/dl (0.2-1) 10/23/19 21:55 AST 13 U/L (15-37) L 10/23/19 21:55 ALT 14 U/L (12-78) 10/23/19 21:55 Alkaline Phosphatase 67 U/L (45-117) 10/23/19 21:55 Troponin I < 0.015 ng/ml (0-0.045) 10/23/19 21:55 Total Protein 7.3 gm/dl (6.4-8.2) 10/23/19 21:55 Albumin 3.7 gm/dl (3.4-5.0) 10/23/19 21:55 Globulin 3.6 gm/dl (2.5-4.0) 10/23/19 21:55 Albumin/Globulin Ratio 1.0 (0.9-2) 10/23/19 21:55 Resident Activity Tracking Resident Involvement: Resident Care Provided Care Provided: Adult [facility] Medicine
[2019-10-26] MEDS: ALBUTEROL 0.5% NEB SOLN 2.5 MG/0.5 ML VIAL NEB PRN ×2 (11:06→16:37)
[2019-10-26] MEDS ORDERED: ALBUT/IPRATROP 3MG/0.5MG NEB 3 ML VIAL INH SCH (13:00)
[2019-10-26] MEDS: ALBUTEROL HFA 8 GM INHALER INH PRN ×2 (19:15→23:05)
[2019-10-26] MEDS: ACETAMINOPHEN 325 MG TAB PO PRN (23:11)
[2019-10-27] MEDS: ALBUTEROL HFA 8 GM INHALER INH PRN ×9 (01:00→22:56)
[2019-10-27] MEDS: ALBUT/IPRATROP 3MG/0.5MG NEB 3 ML VIAL INH SCH ×6 (03:12→22:56)
[2019-10-27] MEDS: ENOXAPARIN INJ 40 MG/0.4 ML SYR SQ SCH (07:54)
[2019-10-27] MEDS: TAMSULOSIN HCL 0.4 MG CAP PO SCH (07:55)
[2019-10-27] MEDS: FLUTICASONE/VILANTEROL 100/25MCG 14 PUFFS/INHALER INH SCH (07:55)
[2019-10-27] MEDS: FAMOTIDINE 40 MG TABLET PO SCH (07:55)
[2019-10-27] MEDS: NICOTINE 7 MG/24 HR TDSY TD SCH (07:56)
[2019-10-27] MEDS: methylPREDNISolone 15 MG in SYRINGE 0 ML IV SCH (07:57)
[2019-10-27] MEDS: guaiFENesin 600 MG TABCR PO SCH ×2 (07:57→20:15)
[2019-10-27] MEDS: AZITHROMYCIN 250 MG TAB PO SCH (07:58)
--- NOTE | 2019-10-27 09:53 | Hospitalist Progress Note ---
Date of Service October 27, 2019 Assessment & Plan (1) COPD exacerbation: Gibson Vazquez is a 59 y/o male with past medical hx of COPD, cataracts, chronic respiratory failure with hypoxia and hypercapnia, weight loss, pulmonary nodule who presents for dyspnea with acute COPD exacerbation. COPD Exacerbation - CTA chest: negative for PE, moderate emphysema, several bulla, no pneumothorax - IV steroids - 30 mg Methylpred IV Q8H - azithromycin 500 in ED, 250 x4 days - Duonebs back to Q4H, continue home spiriva 1 puff daily, home advair 250/60 - Pulmonary toilet, mucinex/flutter valve/incentive spirometry - unable to find PFT results in EMR - smoking relapse: smoking cessation counseling - slow improvement - continue current management. Anxiety - sx improved with small dose of xanax - good candidate for SSRI Chronic Respiratory failure - home O2 requirement of 2L at rest Malnutrition - Gym Teacher consult for poor intake and caloric improvement - PT/OT to build strength BPH - home flomax 0.4mg daily DVT ppx: Lovenox 40mg SQ daily Dispo: Med/surg tele admit Code: full FEN/GI: Regular diet, Pepcid 40mg PO daily Admission and Anticipated Discharge Date Admission Date: October 26, 2019 Supervising Physician Co-Signing Physician Notes Resident Physician Supervision Note: I independently interviewed and examined the patient and verified the mcnair history and physical, reviewed labs and image studies, discussed the case with the resident Dr. Elena and agree with the findings and care plan. Subjective Anxious and concerned that his breathing is not improving today. Feels like he is worse than the day before. Review of Systems Respiratory: + cough and + dyspnea on exertion; no change in sputum, no pain on inspiration, no pain with cough and no sputum production Cardiovascular: no chest pain with activity, no palpitations and no edema Physical Exam Constitutional: + thin; no acute distress Respiratory: + audible wheezes and symmetric chest movement; no respiratory distress, does not use accessory muscles, + not able to speak in complete sentence, not tachypneic and no tripod positioning Auscultation: + wheezes (inspiratory and expiratory throughout); no diminished lung sounds, no crackles, no rales, no rhonchi and no pleural rub Cardiovascular: RRR, no murmur, no edema Results & Data Results & Data ([facility]) Vital Signs (Past 12 Hours) Vital Signs Temp Pulse Pulse Resp BP BP Pulse Ox 10/27/19 08:48 85 10/27/19 07:35 37.0 C 77 18 150/71 H 98 10/27/19 07:04 45 L 18 97 10/27/19 04:00 36.7 C 96 H 20 147/67 H 91 10/27/19 03:14 70 16 96 10/27/19 01:01 80 20 96 10/27/19 00:35 84 10/26/19 23:07 96 H 18 93 10/26/19 23:00 36.7 C 90 20 147/72 H 94 Laboratory Results WBC 9.00 K/uL (4.8-10.8) 10/23/19 21:55 RBC 4.41 M/uL (4.7-6.1) L 10/23/19 21:55 Hgb 14.1 g/dL (14.0-18.0) 10/23/19 21:55 Hct 45.0 % (42-52) 10/23/19 21:55 MCV 102.0 fL (80-100) H 10/23/19 21:55 MCH 32.0 pg (25-34) 10/23/19 21:55 MCHC 31.3 g/dL (32-36) L 10/23/19 21:55 RDW Std Deviation 47.9 fL (36.4-46.3) H 10/23/19 21:55 RDW Coeff of Renato 12.8 % (11.5-14.5) 10/23/19 21:55 Plt Count 382 K/uL (130-400) 10/23/19 21:55 MPV 9.9 fL (7.4-10.4) 10/23/19 21:55 Immature Gran % (Auto) 0.2 % 10/23/19 21:55 Neut % (Auto) 89.6 % 10/23/19 21:55 Lymph % (Auto) 6.2 % 10/23/19 21:55 [place] % (Auto) 3.9 % 10/23/19 21:55 Eos % (Auto) 0.0 % 10/23/19 21:55 Baso % (Auto) 0.1 % 10/23/19 21:55 Neut # (Auto) 8.06 K/uL (1.4-6.5) H 10/23/19 21:55 Lymph # (Auto) 0.56 K/uL (1.2-3.4) L 10/23/19 21:55 [place] # (Auto) 0.35 K/uL (0.11-0.59) 10/23/19 21:55 Eos # (Auto) 0.00 K/uL (0-0.5) 10/23/19 21:55 Baso # (Auto) 0.01 K/uL (0-0.2) 10/23/19 21:55 Immature Gran # (Auto) 0.02 K/uL (0.00-0.02) 10/23/19 21:55 PT 10.5 Seconds (9.0-12.0) 10/23/19 21:55 INR 1.0 (0.9-1.1) 10/23/19 21:55 APTT 25.1 Seconds (21.0-31.0) 10/23/19 21:55 PTT Ratio 0.9 10/23/19 21:55 D-Dimer 580 ug/L FEU (0-500) H* 10/23/19 21:55 Sodium 138 mmol/L (136-145) 10/23/19 21:55 Potassium 4.5 mmol/L (3.5-5.1) 10/23/19 21:55 Chloride 99 mmol/L (98-107) 10/23/19 21:55 Carbon Dioxide 39 mmol/L (21-32) H 10/23/19 21:55 Anion Gap 0 (3-11) L 10/23/19 21:55 BUN 3 mg/dl (7-18) L 10/23/19 21:55 Creatinine 0.69 mg/dl (0.6-1.4) 10/23/19 21:55 Est Cr Clr Drug Dosing Not Reportable 10/23/19 21:55 Est GFR ( Amer) 120.4 10/23/19 21:55 Est GFR (Non-Af Amer) 103.9 10/23/19 21:55 BUN/Creatinine Ratio 4.8 (10-20) L 10/23/19 21:55 Glucose 108 mg/dl (70-99) H 10/23/19 21:55 Calcium 9.6 mg/dl (8.5-10.1) 10/23/19 21:55 Total Bilirubin 0.4 mg/dl (0.2-1) 10/23/19 21:55 AST 13 U/L (15-37) L 10/23/19 21:55 ALT 14 U/L (12-78) 10/23/19 21:55 Alkaline Phosphatase 67 U/L (45-117) 10/23/19 21:55 Troponin I < 0.015 ng/ml (0-0.045) 10/23/19 21:55 Total Protein 7.3 gm/dl (6.4-8.2) 10/23/19 21:55 Albumin 3.7 gm/dl (3.4-5.0) 10/23/19 21:55 Globulin 3.6 gm/dl (2.5-4.0) 10/23/19 21:55 Albumin/Globulin Ratio 1.0 (0.9-2) 10/23/19 21:55 Resident Activity Tracking Resident Involvement: Resident Care Provided Care Provided: Adult [facility] Medicine
[2019-10-27] MEDS ORDERED: methylPREDNISolone 30 MG in SYRINGE 0 ML IV SCH ×2 (10:45→11:00)
[2019-10-27] MEDS: methylPREDNISolone 30 MG in SYRINGE 0 ML IV SCH ×2 (11:15→20:10)
[2019-10-27] MEDS ORDERED: ALPRAZolam 0.25 MG TABLET PO STA ×2 (12:51→20:57)
[2019-10-28] MEDS: ALBUTEROL HFA 8 GM INHALER INH PRN ×6 (03:03→22:47)
[2019-10-28] MEDS: ALBUT/IPRATROP 3MG/0.5MG NEB 3 ML VIAL INH SCH ×6 (03:04→22:47)
[2019-10-28] MEDS ORDERED: BUSPIRONE HCL 7.5 MG TAB PO ONE (03:20)
[2019-10-28] MEDS: methylPREDNISolone 30 MG in SYRINGE 0 ML IV SCH ×2 (08:14→20:12)
[2019-10-28] MEDS: FLUTICASONE/VILANTEROL 100/25MCG 14 PUFFS/INHALER INH SCH (08:16)
[2019-10-28] MEDS: ENOXAPARIN INJ 40 MG/0.4 ML SYR SQ SCH (08:16)
[2019-10-28] MEDS: guaiFENesin 600 MG TABCR PO SCH ×2 (08:17→20:11)
[2019-10-28] MEDS: TAMSULOSIN HCL 0.4 MG CAP PO SCH (08:17)
[2019-10-28] MEDS: NICOTINE 7 MG/24 HR TDSY TD SCH (08:17)
[2019-10-28] MEDS: FAMOTIDINE 40 MG TABLET PO SCH (08:17)
[2019-10-28] MEDS: AZITHROMYCIN 250 MG TAB PO SCH (08:17)
[2019-10-28] MEDS: SERTRALINE HCL 50 MG TABLET PO SCH (13:04)
[2019-10-28] MEDS: BUSPIRONE HCL 7.5 MG TAB PO PRN (14:17)
--- NOTE | 2019-10-28 15:11 | Hospitalist Progress Note ---
Date of Service October 28, 2019 Assessment & Plan (1) COPD exacerbation: Gibson Vazquez is a 59 y/o male with past medical hx of COPD, cataracts, chronic respiratory failure with hypoxia and hypercapnia, weight loss, pulmonary nodule who presents for dyspnea with acute COPD exacerbation. COPD Exacerbation - CTA chest: negative for PE, moderate emphysema, several bulla, no pneumothorax - IV steroids - 30 mg Methylpred IV Q8H - azithromycin 500 in ED, 250 x4 days -- completed course on 10/28/19 - Duonebs Q4H, continue home spiriva 1 puff daily, home advair 250/60 - Pulmonary toilet, mucinex/flutter valve/incentive spirometry - unable to find PFT results in EMR - smoking relapse: smoking cessation counseling, continue nicotine patch while inpatient - slow improvement - continue current management. Anxiety - Noticeable component of patients SOB related to anxiety. - Had seen good results with Xanax and Buspar - Start Buspar 7.5mg PO TID PRN anxiety - Start Sertraline 25mg QD - Recent EKG on 10/23/19 showed QT/QTc 384/393 Chronic Respiratory failure - home O2 requirement of 2L at rest Malnutrition - Internet Project Manager consult for poor intake and caloric improvement - PT/OT to build strength BPH - home flomax 0.4mg daily DVT ppx: Lovenox 40mg SQ daily Dispo: Med/surg tele Code: full FEN/GI: Regular diet, Pepcid 40mg PO daily (2) Anxiety: Admission and Anticipated Discharge Date Admission Date: October 26, 2019 Supervising Physician Co-Signing Physician Notes Resident Physician Supervision Note: I independently interviewed and examined the patient and verified the mcnair history and physical, reviewed labs and image studies, discussed the case with the resident Dr. Rosas and agree with the findings and care plan. Subjective Patient evaluated at the bedside this morning. Patient noted that he was fairly tired and sleep as he was unable to sleep well the night prior. Stating that he still feels as though he "cannot take a full deep breath" and that he is SOB because of this. Notes he feels minimal improvement with steroids and abx. Stated that he actually felt more relief last night when given Ativan and Buspar. Review of Systems Constitutional: no fever and no chills Respiratory: + dyspnea and + wheezing; no cough Cardiovascular: + dyspnea and + dyspnea on exertion; no chest pain and no radiating jaw, neck or arm pain Gastrointestinal: no abdominal pain, no nausea and no vomiting Genitourinary: no dysuria Physical Exam Constitutional: + thin; no acute distress Respiratory: able to speak in complete sentences, + audible wheezes and symmetric chest movement; no respiratory distress, does not use accessory muscles, no cough, not tachypneic and no tripod positioning Auscultation: + wheezes (inspiratory and expiratory throughout); no diminished lung sounds, no crackles, no rales, no rhonchi and no pleural rub Cardiovascular: RRR, no murmur, no edema Gastrointestinal (Abdomen): normal bowel sounds, soft, nontender, no hepatosplenomegaly Psychiatric: Orientation: alert and oriented x 3 Affect: + depressed affect Mood: + anxious mood Results & Data Results & Data ([facility]) Vital Signs (Past 12 Hours) Vital Signs Temp Pulse Pulse Resp BP BP Pulse Ox 10/28/19 11:28 85 18 95 10/28/19 11:06 36.6 C 84 20 105/70 91 10/28/19 09:00 80 10/28/19 07:55 36.5 C 78 20 152/72 H 97 10/28/19 06:33 74 16 95 10/28/19 04:00 36.7 C 80 18 127/71 94 Resident Activity Tracking Resident Involvement: Resident Care Provided Care Provided: Adult Hospital Medicine
[2019-10-29] MEDS: BUSPIRONE HCL 7.5 MG TAB PO PRN ×3 (00:02→21:00)
[2019-10-29] MEDS ORDERED: ALPRAZolam 0.25 MG TABLET PO ONE (01:37)
[2019-10-29] MEDS ORDERED: ALPRAZolam 0.25 MG TABLET ONE (01:56)
[2019-10-29] MEDS: ALBUT/IPRATROP 3MG/0.5MG NEB 3 ML VIAL INH SCH ×6 (03:02→22:11)
[2019-10-29] MEDS: ALBUTEROL HFA 8 GM INHALER INH PRN ×6 (03:03→22:10)
[2019-10-29] MEDS: FAMOTIDINE 40 MG TABLET PO SCH (07:52)
[2019-10-29] MEDS: SERTRALINE HCL 50 MG TABLET PO SCH (07:52)
[2019-10-29] MEDS: ENOXAPARIN INJ 40 MG/0.4 ML SYR SQ SCH (07:52)
[2019-10-29] MEDS: methylPREDNISolone 30 MG in SYRINGE 0 ML IV SCH ×2 (07:52→22:03)
[2019-10-29] MEDS: TAMSULOSIN HCL 0.4 MG CAP PO SCH (07:53)
[2019-10-29] MEDS: NICOTINE 7 MG/24 HR TDSY TD SCH (07:53)
[2019-10-29] MEDS: guaiFENesin 600 MG TABCR PO SCH ×2 (07:53→22:03)
[2019-10-29] MEDS: FLUTICASONE/VILANTEROL 100/25MCG 14 PUFFS/INHALER INH SCH (07:53)
--- NOTE | 2019-10-29 09:53 | Hospitalist Progress Note ---
Date of Service October 29, 2019 Assessment & Plan (1) COPD exacerbation: Gibson Vazquez is a 59 y/o male with past medical hx of COPD, cataracts, chronic respiratory failure with hypoxia and hypercapnia, weight loss, pulmonary nodule who presents for dyspnea with acute COPD exacerbation. COPD Exacerbation - CTA chest: negative for PE, moderate emphysema, several bulla, no pneumothorax - IV steroids - 30 mg Methylpred IV Q8H - azithromycin 500 in ED, 250 x4 days -- completed course on 10/28/19 - Duonebs Q4H, continue home spiriva 1 puff daily, home advair 250/60 - Pulmonary toilet, mucinex/flutter valve/incentive spirometry - unable to find PFT results in EMR - smoking relapse: smoking cessation counseling, continue nicotine patch while inpatient - slow improvement - continue current management. Anxiety - Noticeable component of patients SOB related to anxiety. - Much of patients anxiety appears to be related both to the loss of his mother who was a pitting machine operator while at home, and to his fairly severe cataracts. Patient having significant difficulty with tasks such as feeding himself due to inability to see well. - Had seen good results with Xanax and Buspar - Start Buspar 7.5mg PO TID PRN anxiety - Start Sertraline 25mg QD - Recent EKG on 10/23/19 showed QT/QTc 384/393 - Due to patients poor lung function and worsening anxiety, consult Palliative medicine. Chronic Respiratory failure - home O2 requirement of 2L at rest Malnutrition - Rapid Transit Operator consult for poor intake and caloric improvement - PT/OT to build strength BPH - home flomax 0.4mg daily DVT ppx: Lovenox 40mg SQ daily Dispo: Med/surg tele Code: full FEN/GI: Regular diet, Pepcid 40mg PO daily (2) Anxiety: Admission and Anticipated Discharge Date Admission Date: October 26, 2019 Supervising Physician Co-Signing Physician Notes Resident Physician Supervision Note: I independently interviewed and examined the patient and verified the mcnair history and physical, reviewed labs and image studies, discussed the case with the resident Dr. Rosas and agree with the findings and care plan. Subjective Patient seen at the bedside this morning. Although more comfortable appearing in his breathing, patient noted that he still was having difficulties with it. He wasn't sure if there was another medication or treatment we could provide to assist in this. He noted that "I've seen the ads on TV for things like Hydroxychloroquine that might help." Patient also disclosed to nursing that at home his brother helps as much as he can, but his mother used to help him with certain things. She sadly had a few weeks ago and he has been feeling anxious due to that. Review of Systems Constitutional: no fever and no chills Respiratory: + dyspnea and + wheezing; no cough Cardiovascular: + dyspnea and + dyspnea on exertion; no chest pain and no radiating jaw, neck or arm pain Gastrointestinal: no abdominal pain, no nausea and no vomiting Genitourinary: no dysuria Physical Exam Constitutional: + thin; no acute distress Respiratory: able to speak in complete sentences, + audible wheezes and symmetric chest movement; no respiratory distress, does not use accessory muscles, no cough, not tachypneic and no tripod positioning Auscultation: + wheezes (inspiratory and expiratory throughout); no diminished lung sounds, no crackles, no rales, no rhonchi and no pleural rub Cardiovascular: RRR, no murmur, no edema Psychiatric: Orientation: alert and oriented x 3 Affect: + anxious affect Mood: + anxious mood Results & Data Results & Data ([facility]) Vital Signs (Past 12 Hours) Vital Signs Temp Pulse Resp BP Pulse Ox 10/29/19 07:08 70 18 96 10/29/19 06:34 36.5 C 73 20 160/74 H 95 10/29/19 03:04 82 16 98 10/28/19 23:04 36.6 C 75 19 155/75 H 96 10/28/19 22:47 70 19 96 Resident Activity Tracking Resident Involvement: Resident Care Provided Care Provided: Adult Hospital Medicine
[2019-10-30] MEDS: ALBUTEROL HFA 8 GM INHALER INH PRN (00:36)
[2019-10-30] MEDS ORDERED: LORazepam 0.25 MG/0.5 ML VIAL IV STA (00:38)
[2019-10-30] MEDS: ALBUT/IPRATROP 3MG/0.5MG NEB 3 ML VIAL INH SCH ×6 (03:24→22:22)
--- NOTE | 2019-10-30 05:49 | Communication Note ---
Date of Service: October 30, 2019 Notified by nursing that patient had his supplemental O2 dislodged and not wearing for quite a while. He appeared odom per nursing. Titrate up oxygen to reverse hypoxia. He was given Ativan 0.25mg IV x 1 dose last night for anxiety. Will have respiratory come see patient for oxygen titration. Resident Activity Tracking Resident Involvement: Resident Care Provided Care Provided: Adult Hospital Medicine
[2019-10-30] MEDS: ENOXAPARIN INJ 40 MG/0.4 ML SYR SQ SCH (08:04)
[2019-10-30] MEDS: methylPREDNISolone 30 MG in SYRINGE 0 ML IV SCH (08:04)
[2019-10-30 09:49] LABS: Base Excess ABG 16.5 mEq/L (-9-1.8); HCO3 ABG 52 mmol/L (19-24); Oxygen Saturation ABG 95.8 % (90-95); PCO2 ABG 146 mmHg (35-46); PO2 ABG 103 mmHg (80-95)
[2019-10-30 09:50] LABS: Allen Test Pos (Pos)
[2019-10-30 09:54] LABS: pH ABG 7.17 (7.35-7.45)
--- NOTE | 2019-10-30 10:26 | XRay Report ---
XR chest 1V portable CLINICAL HISTORY: hypercapnia COMPARISON STUDY: No previous studies for comparison. FINDINGS: The heart is normal in size. There is no failure. There are no pleural effusions. There is equivocal left lower lobe atelectasis/consolidation. A PA and lateral study is recommended in follow- up. The right lung appears clear.[There is underlying emphysema. IMPRESSION: 1. Pulmonary emphysema 2. Equivocal area of left lower lobe atelectasis/consolidation. A PA and lateral study should be cons idered in follow-up. ACT 112: Negative or not required by law. Electronically signed by: Lawson Rosado M.D. 10/30/2019 10:25 AM
[2019-10-30 10:29] LABS: Hematocrit (blood only) 47.4 % (42-52); Hemoglobin 14.7 g/dL (14.0-18.0); Immature Granulocytes # (auto) 0.05 K/uL (0.00-0.02); Immature Granulocytes % (auto) 0.3 %; Lymphocytes # (auto) 0.95 K/uL (1.2-3.4); Lymphocytes % (auto) 4.8 %; Mean Corpuscular Hemoglobin 32.2 pg (25-34); Mean Corpuscular Volume 103.7 fL (80-100); Mean Platelet Volume 10.1 fL (7.4-10.4); Monocytes # (auto) 0.42 K/uL (0.11-0.59); Monocytes % (auto) 2.1 %; Neutrophils # (auto) 18.46 K/uL (1.4-6.5); Neutrophils % (auto) 92.8 %; Platelet Count 390 K/uL (130-400); RDW Coefficient of Variation 12.6 % (11.5-14.5); RDW Standard Deviation 47.8 fL (36.4-46.3); Red Blood Count 4.57 M/uL (4.7-6.1); White Blood Count 19.88 K/uL (4.8-10.8)
--- NOTE | 2019-10-30 10:44 | Hospitalist Progress Note ---
Date of Service October 30, 2019 Assessment & Plan (1) COPD exacerbation: Gibson Vazquez is a 59 y/o male with past medical hx of COPD, cataracts, chronic respiratory failure with hypoxia and hypercapnia, weight loss, pulmonary nodule who presents for dyspnea with acute COPD exacerbation. Altered Mental Status, likely secondary to Hypercapnia -Patient with Altered mental status this AM, unable to follow commands -Initial ABG pH 7.17 with PCO2 146, 2 hour repeat ABG pH 7.2 with PCO2 132 -Overnight patient had accidently removed NC for unknown period of time. Had also received a small dose of Xanax with ? slight respiratory depression. Additive factors and patients chronic condition concerning for hypercapnia as cause for current condition. -Started patient on High Flow Oxygen 40/40, noted some improvement in mental status initially, but returned to altered shortly thereafter. -Called patients family in regards to his current mental status and prognosis. Spoke with his brother Juan Antonio and eldest son Harvey. They felt that patient would want his wishes to be DNR/DNI should something happen. Patients Code status was changed to DNR/DNI. ?Pneumonia -Leukocytosis with neutrophil predominance, likely secondary to corticosteroid use but concerning for recurrent infection. -CXR with nonspecific LLL atelectasis/consolidation -MRSA Nares negative -Will start empiric treatment with Zosyn COPD Exacerbation - CTA chest: negative for PE, moderate emphysema, several bulla, no pneumothorax - IV steroids - 30 mg Methylpred IV Q8H -- Increased to 60mg in light of worsening symptoms - azithromycin 500 in ED, 250 x4 days -- completed course on 10/28/19 - Duonebs Q4H, continue home spiriva 1 puff daily, home advair 250/60 - Pulmonary toilet, mucinex/flutter valve/incentive spirometry - unable to find PFT results in EMR - smoking relapse: smoking cessation counseling, continue nicotine patch while inpatient - Due to concern for air hunger, Palliative medicine adding on Morphine 5mg q2h PRN for comfort Anxiety - Noticeable component of patients SOB related to anxiety. - Much of patients anxiety appears to be related both to the loss of his mother who was a flight test engineer while at home, and to his fairly severe cataracts. Patient having significant difficulty with tasks such as feeding himself due to inability to see well. - Had seen good results with Xanax and Buspar - Start Buspar 7.5mg PO TID PRN anxiety - Start Sertraline 25mg QD - Recent EKG on 10/23/19 showed QT/QTc 384/393 - Due to patients poor lung function and worsening anxiety, consult Palliative medicine. Chronic Respiratory failure - home O2 requirement of 2L at rest - Currently on high flow oxygen at 40/40 Malnutrition - Metals Analyst consult for poor intake and caloric improvement - PT/OT to build strength BPH - home flomax 0.4mg daily DVT ppx: Lovenox 40mg SQ daily Dispo: Med/surg tele Code: full FEN/GI: Regular diet, Pepcid 40mg PO daily (2) Anxiety: Admission and Anticipated Discharge Date Admission Date: October 26, 2019 Supervising Physician Co-Signing Physician Notes I personally examined the patient and verified all mcnair points of history and exam, discussed case, and agree with decision making with Dr Rosas. no meaningful HPI or ROS. pt personally seen mulitple times today as well as the multiple times seen by dr rosas. vitals noted nad but very sedate, will open eyes and not talk on first visit - opens eyes and talks mostly nonsensically or repeats examiner on second. heent nc at mmm. lungs markedly diminished bilaterally no r/r/w but nearly no air entry w spontaneous effort. no accessory muscles, no belly breathing. no focal neuro deficits acute hypercapnic respiratory failure superimposed on chronic hypoxic (and presumably hypercapnic) respiratory failure from what appears to be end stage COPD -concern on new pneumonia - MRSA nares negative but given that he's been in the hospital have to be concerned on pseudomonas; however, findings on CXR are nonspecific and WBC may be steroid related rather than infectious - it is possible that this is all just fatiguing from his severe / end-stage COPD -dr rosas has discussed with family extensively - overall goal is comfort, DNR/etc but current level of care ok -ultimate goal of home w hospice to be able to see family would be most realistic "optimistic" option, although given his rapid and severe deterioriation, he may pass during this hospitalization - family aware -continue current care otherwise otherwise as above Subjective Patient examined at the bedside this AM. Patient was minimally responsive to stimuli. Could not follow directions, but would move his legs and head. Review of Systems Review of Systems: Unobtainable due to reduced consciousness Physical Exam Constitutional: + ill appearing and + altered mental status Respiratory: no respiratory distress Auscultation: + diminished lung sounds Cardiovascular: Rate/Rhythm: regular rate and regular rhythm Heart Sounds: no murmur Gastrointestinal (Abdomen): Inspection/Auscultation: abdomen normal to inspection and normal bowel sounds Percussion/Palpation: abdomen soft Neurologic: + obtunded; + not awake Cranial Nerves: PERRL Psychiatric: Orientation: + not alert and + not oriented x 3 Speech: + abnormal rate/rhythm/volume of speech Results & Data Results & Data ([facility]) Vital Signs (Past 12 Hours) Vital Signs Temp Pulse Resp BP BP Pulse Ox 10/30/19 10:11 79 15 88 L 10/30/19 09:55 77 20 90 10/30/19 07:12 78 20 92 10/30/19 06:35 36.4 C L 80 18 161/78 H 90 10/30/19 06:34 93 10/30/19 05:39 36.4 C L 77 22 161/56 H 94 10/30/19 00:37 74 20 96 10/29/19 23:14 36.6 C 75 19 149/69 H 94 Resident Activity Tracking Resident Involvement: Resident Care Provided Care Provided: Adult Hospital Medicine
[2019-10-30 10:52] LABS: Albumin Globulin Ratio 1.1 (0.9-2); Albumin Level 3.6 gm/dl (3.4-5.0); BUN Creatinine Ratio 52.5 (10-20); Bilirubin,Total 0.8 mg/dl (0.2-1); Calcium 9.3 mg/dl (8.5-10.1); Creatinine Clr Calc Pharmacy 129.1 ml/min; Est GFR (African American) 144.9; Globulin 3.4 gm/dl (2.5-4.0); Magnesium 2.3 mg/dl (1.8-2.4); Phosphorus 4.6 mg/dl (2.5-4.9); Potassium 5.2 mmol/L (3.5-5.1)
[2019-10-30] MEDS: FLUTICASONE/VILANTEROL 100/25MCG 14 PUFFS/INHALER INH SCH (10:59)
[2019-10-30] MEDS: guaiFENesin 600 MG TABCR PO SCH ×2 (10:59→21:15)
[2019-10-30] MEDS: FAMOTIDINE 40 MG TABLET PO SCH (10:59)
[2019-10-30] MEDS: TAMSULOSIN HCL 0.4 MG CAP PO SCH (10:59)
[2019-10-30] MEDS: SERTRALINE HCL 50 MG TABLET PO SCH (11:00)
[2019-10-30] MEDS ORDERED: PIPERACILL/TAZOBAC CONSULT ACTIVE PRN (11:06)
[2019-10-30] MEDS: NICOTINE 7 MG/24 HR TDSY TD SCH (11:09)
[2019-10-30] MEDS ORDERED: PIPERACILLIN/TAZOBACTAM 4.5 GM in DEXTROSE 5% 100 ML IV SCH (11:15)
[2019-10-30] MEDS ORDERED: PIPERACILLIN/TAZOBACTAM 3.375 GM in DEXTROSE 5% 100 ML IV ONE (11:45)
[2019-10-30 11:50] LABS: Base Excess ABG 16.5 mEq/L (-9-1.8); HCO3 ABG 51 mmol/L (19-24); PCO2 ABG 132 mmHg (35-46); PO2 ABG 64 mmHg (80-95)
[2019-10-30 12:01] LABS: Allen Test Pos (Pos)
--- NOTE | 2019-10-30 12:29 | Communication Note ---
Date of Service: October 30, 2019 Called patients primary contact Ed (Brother) in regard to patients status and inability to answer questions/make decisions at this time. As patient does not have a designated POA, his next of kin was eldest son Harvey ([phone]) who lives in the state of [place]. Called Harvey and updated him on his father situation. Patient noted that he would actual prefer if Ed be the primary decision maker as he has been caring for the patient at home and is local enough to see him. Called back to Ed to notify him of Harvey's decision. Discussed patients code status with Ed which was a FULL CODE and Ed believes the patients wishes would have rather been DNR/DNI. He believes the patient would not want life saving or heroic measures and would not want intubation. Code status changed in chart. Resident Activity Tracking Resident Involvement: Resident Care Provided Care Provided: Adult [place] [facility] Medicine
[2019-10-30] MEDS ORDERED: methylPREDNISolone 30 MG in SYRINGE 0 ML IV STA (12:38)
[2019-10-30] MEDS: MoRPHine SULFATE 5 MG/0.25 ML UDP PO PRN (14:24)
--- NOTE | 2019-10-30 14:32 | Palliative Care Consultation ---
Date of Consultation October 30, 2019 Assessment & Plan (1) Palliative care encounter: Patient is a 59-year-old male with a past medical history significant for end-stage, steroid-dependent COPD, current smoker, severe cataracts, pulmonary nodule and weight loss who presented to [facility] for acute shortness of breath - failed outpatient management. Patient was admitted and started on IV Solu- Medrol as well as IV Zosyn. Patient is currently on high flow nasal cannula at 40 L/min with sats 89 to 90%. Patient was asked what was his most distressing symptom at this time-he pointed to some discomfort left-sided chest, he becomes short of breath even attempting to speak. Patient did open his eyes briefly and it was able to respond to a few simple questions. -Spoke with patient's brother, whom he lives with, Juan Antonio VazquezVxsxh-[phone], discussed using low-dose Roxanol for the chest discomfort as well as his breathing-family just wants to keep patient comfortable. Patient's POA is his son in [place] who deferred to patient's brother for medical decision making. -Will start Roxanol at 5 mg p.o./sublingual every 2 hours as needed -Patient with history of hypercapnia-expect him to have more CO2 retention which will cause increased somnolence. -We will continue to follow and assist with comfort measures and provide support to family members (2) COPD (chronic obstructive pulmonary disease): COPD type: emphysema (3) Anxiety: (4) Pulmonary nodule: History of Present Illness Reason for Consultation: Assist with comfort measures Requesting Physician: Dr. Rosas Attending Physician: Hesham Ureña DO History of Present Illness Chart reviewed, patient seen and examined, no friends at bedside. There is a staff sitter at bedside. Patient is a 59-year-old male with a past medical history significant for end- stage, steroid-dependent COPD, current smoker, severe cataracts, pulmonary nodule and weight loss who presented to [facility] for acute shortness of breath - failed outpatient management. Patient was admitted and started on IV Solu- Medrol as well as IV Zosyn. Patient is currently on high flow nasal cannula at 40 L/min with sats 89 to 90%. Patient was asked what was his most distressing symptom at this time-he pointed to some discomfort left-sided chest, he becomes short of breath even attempting to speak. Patient did open his eyes briefly and it was able to respond to a few simple questions. -Spoke with patient's brother, whom he lives with, Juan Antonio VazquezEmhwp-[phone], discussed using low-dose Roxanol for the chest discomfort as well as his breathing-family just wants to keep patient comfortable. Patient's POA is his son in [place] who deferred to patient's brother for medical decision making. -Will start Roxanol at 5 mg p.o./sublingual every 2 hours as needed -Patient with history of hypercapnia-expect him to have more CO2 retention which will cause increased somnolence. -We will continue to follow and assist with comfort measures and provide support to family members Allergies Allergy/AdvReac Type Severity Reaction Status Date / Time No Known Allergies Allergy Unverified 10/23/19 22:46 Home Medications Home Medications Medication Instructions Recorded Confirmed Type fluticasone propion-salmeterol 1 puff INHALATION BID 01/08/18 10/23/19 History tiotropium bromide 1 puff INHALATION DAILY 01/08/18 10/23/19 History lorazepam 0.5 mg PO HS PRN #15 tab 08/02/18 10/23/19 Rx Portable Oxygen #1 ea 02/08/19 10/23/19 Rx albuterol sulfate 90 mcg/actuation 2 puffs INH Q6H PRN #8.5 gm 09/11/19 10/23/19 Rx aerosol inhaler albuterol sulfate 2.5 mg INH UD PRN 10/16/19 10/23/19 History guaifenesin [Mucinex] 400 mg PO BID 10/16/19 10/23/19 History prednisone 10 mg PO .TAPER UD 10/16/19 10/23/19 History tamsulosin [Flomax] 0.4 mg PO DAILY 10/16/19 10/23/19 History Patient History Medical History Chronic respiratory failure PT NOT SURE COPD (chronic obstructive pulmonary disease) LAST FLARE UP JULY 2018 - COLLAPSED LUNG LEFT Enlarged prostate Oxygen dependent 24 HOURS A DAY, 2 L AT REST, 3 L WITH ACTIVITY Steroid-dependent COPD Tobacco abuse Surgical History History of colonoscopy History of lung surgery BLEB History of shoulder surgery LEFT Family History Father Family history non-contributory Social History Smoking Status: Current every day smoker Cigarettes Per Day: 3 CIGS/ PER DAY - ADVISED NPO; Second Hand Exposure: No; Do You Dip or Chew Tobacco: No; Hx Alcohol Use: No Hx Substance Use: No Preferred Language: Occitan Communication Ability: Effective Golf Course Manager Required: No Beliefs That Will Affect Care: None Current Living Situation: Family Current Living Situation Comment: lives with brother Feels Safe at Home: Yes Safety Concerns: Feels Safe At This Time Review of Systems Review of Systems: ROS limited due to decreased alertness, patient does complain of left-sided chest pain as well as shortness of breath Physical Exam Physical Exam: PE: Patient appears comfortable at rest, on high flow nasal cannula at 40 L/min HEENT: Patient opens eyes briefly, gaze focused, EOMI, hearing within normal limits Respirations: Shortness of breath with attempt to speak, not using accessory muscles, diminished breath sounds all lung chen CV: Regular rate, no edema Abdomen: Soft, nontender Neuro: Arousable for short periods of time Results & Data ([facility]) Vital Signs (Past 12 Hours) Vital Signs Temp Pulse Pulse Resp BP Pulse Ox 10/30/19 11:07 71 10/30/19 10:58 97.5 F L 77 22 177/77 H 88 L 10/30/19 10:52 74 19 91 10/30/19 10:51 74 19 91 10/30/19 10:11 79 15 88 L 10/30/19 09:55 77 20 90 10/30/19 07:12 78 20 92 10/30/19 06:35 97.5 F L 80 18 161/78 H 90 10/30/19 06:34 93 10/30/19 05:39 97.5 F L 77 22 161/56 H 94 PG Care Time/CCT Total # of Minutes Spent Total Time Spent with Patient: Total time spent 55 minutes with greater than 50% of the time spent at bedside assessing patient's current status as well as discussing goals of care and medical management with family. Coding Level of Care Code 68491 Inpt Consult Level 2 Diagnoses Palliative care encounter Z51.5 COPD (chronic obstructive pulmonary disease) J44.9 COPD type: emphysema Anxiety F41.9 Pulmonary nodule R91.1 Time Spent (min) 55
--- NOTE | 2019-10-30 18:11 | Billing Data ---
Date of Service October 30, 2019 Coding Level of Care Code 71918 Subseq Hosp Care Lvl 3
[2019-10-30] MEDS: PIPERACILLIN/TAZOBACTAM 3.375 GM in DEXTROSE 5% 100 ML IV SCH (19:11)
[2019-10-30] MEDS: methylPREDNISolone 60 MG in SYRINGE 0 ML IV SCH (21:46)
[2019-10-31] MEDS: PIPERACILLIN/TAZOBACTAM 3.375 GM in DEXTROSE 5% 100 ML IV SCH (00:46)
[2019-10-31] MEDS: MoRPHine SULFATE 5 MG/0.25 ML UDP PO PRN ×2 (00:46→05:40)
[2019-10-31] MEDS: ALBUT/IPRATROP 3MG/0.5MG NEB 3 ML VIAL INH SCH ×2 (03:19→07:08)
[2019-10-31] MEDS: FLUTICASONE/VILANTEROL 100/25MCG 14 PUFFS/INHALER INH SCH (07:45)
[2019-10-31] MEDS: TAMSULOSIN HCL 0.4 MG CAP PO SCH (07:46)
[2019-10-31] MEDS: SERTRALINE HCL 50 MG TABLET PO SCH (07:46)
[2019-10-31] MEDS: guaiFENesin 600 MG TABCR PO SCH (07:46)
[2019-10-31] MEDS: FAMOTIDINE 40 MG TABLET PO SCH (07:46)
[2019-10-31] MEDS: ENOXAPARIN INJ 40 MG/0.4 ML SYR SQ SCH (07:49)
[2019-10-31] MEDS: NICOTINE 7 MG/24 HR TDSY TD SCH (07:49)
[2019-10-31] MEDS: methylPREDNISolone 60 MG in SYRINGE 0 ML IV SCH (07:49)
--- NOTE | 2019-10-31 08:10 | Hospitalist Progress Note ---
Date of Service October 31, 2019 Assessment & Plan (1) COPD exacerbation: Gibson Vazquez is a 59 y/o male with past medical hx of COPD, cataracts, chronic respiratory failure with hypoxia and hypercapnia, weight loss, pulmonary nodule who presents for dyspnea with acute COPD exacerbation. COMFORT CARE -Had long discussion with patients brother Ed (POA) today in regards to Ramón care. -Brother noted that at this point in time he would like us to only make the p atient comfortable and withdrawal all unnecessary care including labs and antibiotics. -Comfort care orders placed, will defer morphine drip at this time as brother does not want to "hasten" anything. -Will consider downgrade to Medical since on Comfort Care measures only at this point in time. Altered Mental Status, likely secondary to Hypercapnia -Patient with Altered mental status this AM, unable to follow commands -Initial ABG pH 7.17 with PCO2 146, 2 hour repeat ABG pH 7.2 with PCO2 132 -Overnight patient had accidently removed NC for unknown period of time. Had also received a small dose of Xanax with ? slight respiratory depression. Additive factors and patients chronic condition concerning for hypercapnia as cause for current condition. -Started patient on High Flow Oxygen 40/40, noted some improvement in mental status initially, but returned to altered shortly thereafter. -Called patients family in regards to his current mental status and prognosis. Spoke with his brother Ed and eldest son Harvey. They felt that patient would want his wishes to be DNR/DNI should something happen. Patients Code status was changed to DNR/DNI. ?Pneumonia -Leukocytosis with neutrophil predominance, likely secondary to corticosteroid use but concerning for recurrent infection. -CXR with nonspecific LLL atelectasis/consolidation -MRSA Nares negative -Zosyn DC, see above comfort care. COPD Exacerbation - CTA chest: negative for PE, moderate emphysema, several bulla, no pneumothorax - IV steroids - 30 mg Methylpred IV Q8H -- Increased to 60mg in light of worsening symptoms - will leave on while comfort measures - azithromycin 500 in ED, 250 x4 days -- completed course on 10/28/19 - Duonebs Q4H, continue home spiriva 1 puff daily, home advair 250/60 - DC while comfort measures - Pulmonary toilet, mucinex/flutter valve/incentive spirometry - DC while comfort measures - unable to find PFT results in EMR - smoking relapse: smoking cessation counseling, continue nicotine patch while inpatient - DC while comfort measures - Due to concern for air hunger, Palliative medicine adding on Morphine 5mg q2h PRN for comfort Anxiety - Noticeable component of patients SOB related to anxiety. - Much of patients anxiety appears to be related both to the loss of his mother who was a diversified crops farmer while at home, and to his fairly severe cataracts. Patient having significant difficulty with tasks such as feeding himself due to inability to see well. - Had seen good results with Xanax and Buspar - Start Buspar 7.5mg PO TID PRN anxiety - DC - Start Sertraline 25mg QD - DC - Recent EKG on 10/23/19 showed QT/QTc 384/393 - Due to patients poor lung function and worsening anxiety, consult Palliative medicine. Chronic Respiratory failure - home O2 requirement of 2L at rest - Currently on high flow oxygen at 40/100 Malnutrition - Edge Inker Uppers consult for poor intake and caloric improvement - DC - PT/OT to build strength - DC BPH - home flomax 0.4mg daily - DC DVT ppx: Lovenox 40mg SQ daily Dispo: PCU Code: DNR/DNI, comfort care measures FEN/GI: Regular diet, Pepcid 40mg PO daily (2) Anxiety: Admission and Anticipated Discharge Date Admission Date: October 26, 2019 Subjective Unable to obtain. Patient unresponsive. Patients brother and POA was in room, discussed care with him. His brother noted that he would want the patient to be comfortable. Review of Systems Review of Systems: Unobtainable due to reduced consciousness Physical Exam Constitutional: + altered mental status and + frail appearing Respiratory: + labored breathing Auscultation: + diminished lung sounds (bilateral) Cardiovascular: RRR, no murmur, no edema Gastrointestinal (Abdomen): Inspection/Auscultation: normal bowel sounds Neurologic: + obtunded; + not awake Psychiatric: Orientation: + not alert Results & Data Results & Data ([facility]) Vital Signs (Past 12 Hours) Vital Signs Temp Pulse Pulse Resp BP BP Pulse Ox 10/31/19 07:44 36.6 C 65 8 L 79/52 L 100 10/31/19 07:10 95 H 11 L 90 10/31/19 07:08 95 H 11 L 91 10/31/19 03:21 100 H 14 74 L 10/31/19 03:19 100 H 14 74 L 10/31/19 02:46 36.6 C 97 H 22 120/68 76 L 10/30/19 23:41 76 10/30/19 23:07 36.5 C 91 H 12 183/73 H 88 L 10/30/19 22:24 92 H 12 90 10/30/19 22:23 92 H 12 90 Resident Activity Tracking Resident Involvement: Resident Care Provided Care Provided: Adult [facility] Medicine
[2019-10-31] MEDS ORDERED: LORazepam 0.5 MG/1 ML VIAL IV PRN (08:55)
[2019-10-31] MEDS ORDERED: ACETAMINOPHEN 650 MG SUPP PR PRN (08:55)
[2019-10-31] MEDS ORDERED: ONDANSETRON INJ 2 MG/ML 2 ML VIAL IV PRN (08:55)
[2019-10-31] MEDS ORDERED: ATROPINE SULFATE 1% OP SOLN 2 ML BTL SL PRN (08:55)
[2019-10-31] MEDS ORDERED: LORazepam 0.5 MG TAB PO PRN (08:55)
[2019-10-31] MEDS ORDERED: ONDANSETRON 4 MG OD TAB SL PRN (08:55)
[2019-10-31] MEDS ORDERED: GLYCOPYRROLATE 0.2 MG/ML VIAL IV PRN (08:55)
--- NOTE | 2019-10-31 09:02 | Communication Note ---
Date of Service: October 31, 2019 Personally spoke at length with patients brother Ed (POA) this morning in patients room. Ed states that at this point in time he would prefer that the p atient be comfort care measures only. He does not feel it necessary to continue unnecessary lab draws and treatments. He only wants the patient to be comfortable at this time. I placed comfort care orders. Resident Activity Tracking Resident Involvement: Resident Care Provided Care Provided: Adult [facility] Medicine
[2019-10-31] MEDS: MoRPHine SULFATE 2 MG/ML CARP IV PRN ×2 (09:45→13:39)
--- NOTE | 2019-10-31 14:19 | Palliative Care Progress Note ---
Date of Service October 31, 2019 Assessment & Plan (1) Palliative care encounter: Patient is a 59-year-old male with a past medical history significant for end-stage, steroid-dependent COPD, current smoker, severe cataracts, pulmonary nodule and weight loss who presented to [facility] for acute shortness of breath - failed outpatient management. Patient was admitted and started on IV Solu- Medrol as well as IV Zosyn. Patient is currently on high flow nasal cannula at 40 L/min with sats 89 to 90%. -Patient has not improved with aggressive treatment-goal is now comfort care. Patient showing signs of nearing [id number]-spoke with brother at length at bedside. -Expect patient's demise shortly after removing O2, provided emotional support to the brother at bedside. (2) COPD (chronic obstructive pulmonary disease): (3) Anxiety: (4) Pulmonary nodule: Admission and Anticipated Discharge Date Admission Date: October 26, 2019 Subjective on several visits today.Patient seen and examined On initial exam patient was noted to be approaching uwy-et-dyiq-respirations were very shallow, patient appeared comfortable, right foot was cool to touch, left foot was warm. Patient's brother had been in to visit earlier today, called him to update him that I felt patient was getting close to end-of-life, brother wanted to return to the bedside. Patient seen and examined again when I went to speak with brother at bedside-patient's left foot was now cool, right foot cool to mid junior. Discussed end-of-life issues at length with brother -asked if patient would want to hear the voices of his 2 sons. Brother reports they did not have a close or amicable relationship, there were no other family members that wish to visit or call to speak to them. Discussed the fine line between prolonging life and prolonging the dying process, informed brother that anything we are doing right now we can stop if he thought that was in the patient's best interest. Brother stated he wanted to continue the oxygen till 1:15 and if the patient did not pass would consider removing it. Return to bedside at approximately 1:30-brother stated he would want to have the O2 removed-discussed that we did not know how long he could hang on off the O2. Removed high flow nasal cannula from patient, respiratory arrived to turn off machine. Patient's respirations increased slightly-had nursing give a dose of morphine. Left to bedside to give the brother some privacy as patient nears end-of-life. Review of Systems Review of Systems: Unobtainable due to cognitive status Physical Exam Physical Exam: PE: Patient appeared comfortable, on high flow nasal cannula. Unresponsive to voice or touch HEENT: Eyes not closing completely, nursing applying moisturizing drops, dry mucous membranes Respirations: Shallow, minimal air movement CV: Regular rate, no edema Abdomen: No grimace with palpation Extremities: Right foot cool to touch, pale, left foot warm to touch Neuro: Unresponsive to voice or touch Results & Data ([facility]) Vital Signs (Past 12 Hours) Vital Signs Temp Pulse Resp BP BP Pulse Ox 10/31/19 11:07 87 10 L 92 10/31/19 07:44 97.9 F 65 8 L 79/52 L 100 10/31/19 07:10 95 H 11 L 90 10/31/19 07:08 95 H 11 L 91 10/31/19 03:21 100 H 14 74 L 10/31/19 03:19 100 H 14 74 L 10/31/19 02:46 97.9 F 97 H 22 120/68 76 L PG Care Time/CCT Total # of Minutes Spent Total Time Spent with Patient: Total time spent was greater than 65 minutes on 3 separate visits to bedside, twice with family at bedside to provide support as patient nearing end-of-life. Prolonged Care Time Prolonged Care Time: Yes Total Prolonged Care Time: 30 Coding Level of Care Code 92770 Subseq Hosp Care Lvl 3 Diagnoses Palliative care encounter Z51.5 COPD (chronic obstructive pulmonary disease) J44.9 COPD type: emphysema Anxiety F41.9 Pulmonary nodule R91.1 Additional Codes Prolonged Care Time - Prolonged Care Time: Yes ([id number]) Time Spent (min) 65 Critical Care Time Prolonged Care Time Prolonged Care Time: Yes Total Prolonged Care Time: 30 65 (1) COPD (chronic obstructive pulmonary disease) COPD type: emphysema
--- NOTE | 2019-10-31 19:44 | Discharge Summary ---
Date of Service October 31, 2019 Admission HPI Per Admitting Provider Gibson Vazquez is a 59 y/o male with past medical hx of COPD, cataracts, chronic respiratory failure with hypoxia and hypercapnia, weight loss, pulmonary nodule who presents for dyspnea. He notes symptoms feel like prior acute COPD episodes. He notes that for over the past week he has been more short of breath with more tightness in chest. He notes he has been taking his home inhalers as prescribed but has not had improvement. He notes that he was started on Prednisone taper 10/19 and is currently tapered down to 10mg. He notes that he did not feel any improvement with PO prednisone. In Ed, He received IV Methylpred, albuterol treatments which he notes did not provide any relief. He notes that his chronic cough has not changed from baseline and he his cough has been non-productive. He denies any other chest pain outside of the tightness. He denies any nausea, vomiting, fever, chills. He notes he has cataracts and has trouble seeing the knob on his home O2. He is on 2L at rest and 3L with exertion. He notes not increasing O2 to help because he can't see the knobs. He is already in process of getting surgical correction for cataracts. He has a long standing smoking history from early adolescence to 2018 when he stopped. When asked if any more social stressors, he notes "not really"....."my mom about 4 weeks ago." He then notes he has started smoking again to cope with loss of his mother. When asked about nutrition, he notes only eating two bites of pasta today, no lunch, no breakfast. Cannot recall what he ate yesterday. Principal Diagnosis severe acute on chronic hypoxic and hypercapnic respiratory failure caused by exacerbation of end stage COPD Discharge Exam no response to verbal or noxious stim, no heart tones, breath sounds, no spontaneous respirations, pupils fixed and dilated, nonreactive - time of 1:45p 10/31/19 Discharge Data Allergies Allergy/AdvReac Type Severity Reaction Status Date / Time No Known Allergies Allergy Unverified 10/23/19 22:46 Consultations 10/24/19 02:59 ED Decision to Admit Stat 10/24/19 05:55 Consult Case Management - Discharge Planning Routine 10/29/19 09:44 Consult Palliative Care Routine 10/31/19 08:55 Consult Case Management - Discharge Planning Routine Ordered Studies 10/23/19 22:57 CT angio chest PE protocol Urgent Hospital Course (1) COPD exacerbation: last a/p from progress note earlier today (1) COPD exacerbation: Gibson Vazquez is a 59 y/o male with past medical hx of COPD, cataracts, chronic respiratory failure with hypoxia and hypercapnia, weight loss, pulmonary nodule who presents for dyspnea with acute COPD exacerbation. COMFORT CARE -Had long discussion with patients brother Ed (POA) today in regards to Ramón care. -Brother noted that at this point in time he would like us to only make the patient comfortable and withdrawal all unnecessary care including labs and antibiotics. -Comfort care orders placed, will defer morphine drip at this time as brother does not want to "hasten" anything. -Will consider downgrade to Medical since on Comfort Care measures only at this point in time. Altered Mental Status, likely secondary to Hypercapnia -Patient with Altered mental status this AM, unable to follow commands -Initial ABG pH 7.17 with PCO2 146, 2 hour repeat ABG pH 7.2 with PCO2 132 -Overnight patient had accidently removed NC for unknown period of time. Had also received a small dose of Xanax with ? slight respiratory depression. Additive factors and patients chronic condition concerning for hypercapnia as cause for current condition. -Started patient on High Flow Oxygen 40/40, noted some improvement in mental status initially, but returned to altered shortly thereafter. -Called patients family in regards to his current mental status and prognosis. Spoke with his brother Ed and eldest son Harvey. They felt that patient would want his wishes to be DNR/DNI should something happen. Patients Code status was changed to DNR/DNI. ?Pneumonia -Leukocytosis with neutrophil predominance, likely secondary to corticosteroid use but concerning for recurrent infection. -CXR with nonspecific LLL atelectasis/consolidation -MRSA Nares negative -Zosyn DC, see above comfort care. COPD Exacerbation - CTA chest: negative for PE, moderate emphysema, several bulla, no pneumothorax - IV steroids - 30 mg Methylpred IV Q8H -- Increased to 60mg in light of worsening symptoms - will leave on while comfort measures - azithromycin 500 in ED, 250 x4 days -- completed course on 10/28/19 - Duonebs Q4H, continue home spiriva 1 puff daily, home advair 250/60 - DC while comfort measures - Pulmonary toilet, mucinex/flutter valve/incentive spirometry - DC while comfort measures - unable to find PFT results in EMR - smoking relapse: smoking cessation counseling, continue nicotine patch while inpatient - DC while comfort measures - Due to concern for air hunger, Palliative medicine adding on Morphine 5mg q2h PRN for comfort Anxiety - Noticeable component of patients SOB related to anxiety. - Much of patients anxiety appears to be related both to the loss of his mother who was a mannequin decorator while at home, and to his fairly severe cataracts. Patient having significant difficulty with tasks such as feeding himself due to inability to see well. - Had seen good results with Xanax and Buspar - Start Buspar 7.5mg PO TID PRN anxiety - DC - Start Sertraline 25mg QD - DC - Recent EKG on 10/23/19 showed QT/QTc 384/393 - Due to patients poor lung function and worsening anxiety, consult Palliative medicine. Chronic Respiratory failure - home O2 requirement of 2L at rest - Currently on high flow oxygen at 40/100 Malnutrition - Redye Hand consult for poor intake and caloric improvement - DC - PT/OT to build strength - DC BPH - home flomax 0.4mg daily - DC DVT ppx: Lovenox 40mg SQ daily Dispo: PCU Code: DNR/DNI, comfort care measures FEN/GI: Regular diet, Pepcid 40mg PO daily (2) Anxiety: Admission and Anticipated Discharge Date Admission Date: October 26, 2019 --->as day progressed, pt passed peacefully Total Time Total Time Spent Total Time Spent (In Minutes): <30 Discharge Plan Discharge Items Patient Disposition: Coding Level of Care Code D/C Day Management <30 mins Diagnoses COPD exacerbation J44.1
== END 2019-10-31 16:45 | disposition expired | DRG 190 ==
LOC: 2N 20:50 → ED 20:50 → SUATTDRO 10-24 05:37 → 2N 10-24 05:44 → SUATTDRO 10-26 09:23 → 2S 10-30 10:14